=== PATIENT | male | born 1960 | race African-American/Black ===

== ENCOUNTER 2017-10-28 05:35 | Outpatient (CLI) | payer MEDICARE, MEDICAID ==
[~2017-10-28] VITALS: Ht 165.1 cm; Wt 81.6 kg
[2017-10-28] MEDS ORDERED: DIAZ5TAB PO (09:59)
[2017-10-28] MEDS ORDERED: LISI10TA2 PO (10:06)
== END 2017-10-28 10:07 ==
LOC: PREOP 05:35
PROVIDERS: ATTEND Surgery
DX: Z01.818 Encounter for other preprocedural examination (principal)

== ENCOUNTER 2017-11-04 08:51 | Day surgery (SDC) | payer MEDICARE, MEDICAID ==
[~2017-11-04] VITALS: Ht 165.1 cm; Wt 81.6 kg
[~2017-11-04 08:51] MED LIST: DIAZ5TAB PO; LISI10TA2 PO
--- OUTSIDE RECORDS SUMMARY | 2017-11-04 08:56 | XMS REPORT ---
Author RICK Escamilla [facility] eClinicalWorks Address Unknown Phone Unavailable Care Team Providers Care Gallery Or Museum Attendant Name Role Phone RICK STYLES CP Unavailable Allergies No Known Allergies Problems Problem Type Condition Code Onset Dates Condition Status Problem Hypertension I10 Active Problem Anxiety F41.9 Active Problem Abnormal liver function tests R79.89 Active Medications No Known Medications Results No Known Results Summary Purpose eClinicalWorks Submission
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
--- OUTSIDE RECORDS SUMMARY | 2017-11-04 08:56 | XMS REPORT ---
Author Author RICK STYLES [facility] eClinicalWorks Address Unknown Phone Unavailable Care Team Providers Care Maintenance Planner Name Role Phone RICK STYLES CP Unavailable Allergies No Known Allergies Problems Problem Type Condition Code Onset Dates Condition Status Problem Unspecified arthropathy, site unspecified 716.90 Active Problem Other abnormal blood chemistry 790.6 Active Problem Essential hypertension, benign 401.1 Active Problem Nondependent alcohol abuse, unspecified drunkenness 305.00 Active Medications Medication Code System Code Instructions Start Date End Date Status Dosage Valium [facility] [address]-46 5 MG Orally, each fill must last 30 days Twice a day June 28, 2014 1 tablet as needed, must be seen for more refills Results No Known Results Summary Purpose eClinicalWorks Submission
--- OUTSIDE RECORDS SUMMARY | 2017-11-04 08:56 | XMS REPORT ---
Author Author RICK STYLES Organization [facility] Address [address] [place] [address] Care Team Providers Care Supervisor Reactor Fueling Name Role Phone RICK STYLES Unavailable PROBLEMS Type Condition ICD9-CM Code EYN71-ML Code Onset Dates Condition Status SNOMED Code Problem Abnormal liver function tests R79.89 Active 358673451 Problem Hypertension I10 Active 95865154 Problem Anxiety F41.9 Active 23643030 Assessment Hypertension I10 Feb, Active 49560432 ALLERGIES Substance Reaction Event Type Date Status N.K.D.A. Unknown Non Drug Allergy Feb, Unknown SOCIAL HISTORY No smoking Hx information available PLAN OF CARE VITAL SIGNS Height 65 in 2016-03-26 Weight 187.6 lbs 2016-03-26 Heart Rate 110 bpm 2016-03-26 Respiratory Rate 20 2016-03-26 BMI 31.21 kg/m2 2016-03-26 Blood pressure systolic 124 mmHg 2016-03-26 Blood pressure diastolic 84 mmHg 2016-03-26 MEDICATIONS Medication Instructions Dosage Frequency Start Date End Date Duration Status Valium 5 MG Orally, each fill must last 30 days Twice a day 1 tablet as needed, must be seen for more refills 12h Jun, Active hydrochlorothiazide-lisinopril 20-12.5 mg 1 tablet by Oral route 24h Oct, Active RESULTS Name Result Date Reference Range LIVER PANEL (LFT) 2016-03-26 Protein, Total, Serum 7.1 6.0-8.5 Albumin, Serum 4.4 3.5-5.5 Bilirubin, Total 0.2 0.0-1.2 Bilirubin, Direct 0.08 0.00-0.40 Alkaline Phosphatase, S 69 39-117 AST (SGOT) 30 0-40 ALT (SGPT) 24 0-44 PROCEDURES Procedure Date Ordered Related Diagnosis Body Site LAB NOT BILLED BY [facility] Mar 26, 2016 VENIPUNCT, ROUTINE* Mar 26, 2016 Office Visit, Est Pt., Level 3 Mar 26, 2016 [facility] VISIT ESTABLISHED PATIENT Mar 26, 2016 IMMUNIZATIONS No Known Immunizations
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
--- OUTSIDE RECORDS SUMMARY | 2017-11-04 08:56 | XMS REPORT ---
Author Author RICK STYLES [facility] eClinicalWorks Address Unknown Phone Unavailable Care Team Providers Care Machine Plug Shaper Name Role Phone RICK STYLES CP Unavailable Allergies No Known Allergies Problems Problem Type Condition Code Onset Dates Condition Status Problem Anxiety F41.9 Active Assessment Anxiety F41.9 Active Problem Hypertension I10 Active Medications Medication Code System Code Instructions Start Date End Date Status Dosage Valium [facility] [address]-07 5 MG Orally, each fill must last 30 days Twice a day June 28, 2014 1 tablet as needed, must be seen for more refills Results No Known Results Summary Purpose eClinicalWorks Submission
--- OUTSIDE RECORDS SUMMARY | 2017-11-04 08:56 | XMS REPORT ---
Author Author RICK STYLES Organization eClinicalWorks Address Unknown Phone Unavailable Care Team Providers Care Well Cleaner Name Role Phone RICK STYLES CP Unavailable Allergies No Known Allergies Problems Problem Type Condition Code Onset Dates Condition Status Problem Unspecified arthropathy, site unspecified 716.90 Active Problem Other abnormal blood chemistry 790.6 Active Problem Essential hypertension, benign 401.1 Active Problem Nondependent alcohol abuse, unspecified drunkenness 305.00 Active Medications Medication Code System Code Instructions Start Date End Date Status Dosage hydrochlorothiazide-lisinopril NDC 0 20-12.5 mg Once a day October 26, 2013 1 tablet by Oral route Results No Known Results Summary Purpose eClinicalWorks Submission
--- OUTSIDE RECORDS SUMMARY | 2017-11-04 08:57 | XMS REPORT ---
Author Author RICK STYLES [facility] eClinicalWorks Address Unknown Phone Unavailable Care Team Providers Care Artillery Or Naval Gunfire Observer Name Role Phone RICK STYLES CP Unavailable Allergies No Known Allergies Problems Problem Type Condition Code Onset Dates Condition Status Problem Hypertension I10 Active Problem Anxiety F41.9 Active Problem Abnormal liver function tests R79.89 Active Medications Medication Code System Code Instructions Start Date End Date Status Dosage hydrochlorothiazide-lisinopril NDC 0 20-12.5 mg Once a day October 26, 2013 1 tablet by Oral route Valium [facility] [address]-79 5 MG Orally, each fill must last 30 days Twice a day June 28, 2014 1 tablet as needed, must be seen for more refills Results No Known Results Summary Purpose eClinicalWorks Submission
--- OUTSIDE RECORDS SUMMARY | 2017-11-04 08:57 | XMS REPORT ---
Author RICK Escamilla [facility] eClinicalWorks Address Unknown Phone Unavailable Care Team Providers Care Bag Machine Tender Name Role Phone RICK STYLES CP Unavailable Allergies No Known Allergies Problems Problem Type Condition Code Onset Dates Condition Status Problem Hypertension I10 Active Problem Anxiety F41.9 Active Problem Abnormal liver function tests R79.89 Active Medications No Known Medications Results No Known Results Summary Purpose eClinicalWorks Submission
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
--- OUTSIDE RECORDS SUMMARY | 2017-11-04 08:57 | XMS REPORT ---
Author Author RICK STYLES [facility] Address [address] [place] [address] Care Team Providers Care Plugman Name Role Phone RICK STYLES Unavailable PROBLEMS Type Condition ICD9-CM Code [id number] Code Onset Dates Condition Status SNOMED Code Problem Simple chronic bronchitis J41.0 Active 01713840 Problem Cigarette nicotine dependence without complication F17.210 Active 14201116 Problem Anxiety F41.9 Active 93974089 Problem Abnormal liver function tests R79.89 Active 054728305 Problem Hypertension I10 Active 31480514 ALLERGIES No Information SOCIAL HISTORY Never Assessed PLAN OF CARE VITAL SIGNS MEDICATIONS Medication Instructions Dosage Frequency Start Date End Date Duration Status Valium 5 mg Orally, each fill must last 30 days [...]
--- OUTSIDE RECORDS SUMMARY | 2017-11-04 08:57 | XMS REPORT ---
Author Author RICK STYLES [facility] eClinicalWorks Address Unknown Phone Unavailable Care Team Providers Care Flight Tower Dispatcher Name Role Phone RICK STYLES CP Unavailable Allergies No Known Allergies Problems Problem Type Condition ICD-9 Code Onset Dates Condition Status Problem Unspecified arthropathy, site unspecified 716.90 Active Problem Other abnormal blood chemistry 790.6 Active Problem Essential hypertension, benign 401.1 Active Problem Nondependent alcohol abuse, unspecified drunkenness 305.00 Active Medications No Known Medications Results No Known Results Summary Purpose eClinicalWorks Submission
[2017-11-04] MEDS ORDERED: LACTATED RINGERS 1,000 ML IV ONE (09:12)
[2017-11-04 09:20] VITALS: BP 148/108
[2017-11-04] MEDS ORDERED: LACTATED RINGERS 1,000 ML IV STA (09:20)
[2017-11-04] MEDS ORDERED: PROPOFOL INJECTION 50 ML IV ONE (09:24)
[2017-11-04] MEDS ORDERED: MIDAZOLAM 5 MG/5 ML (VERSED) VIAL ONE (09:25)
--- NOTE | 2017-11-04 09:25 | Progress Note-Pre Operative ---
Pre-Operative Progress Note H&P Reviewed The H&P was reviewed, patient examined and no changes noted. Date Seen by Provider: Nov 04, 2017 Time Seen by Provider: : Date H&P Reviewed: Nov 04, 2017 Time H&P Reviewed: : Pre-Operative Diagnosis: screening colonoscopy ROSSY ORNELAS DO Nov 04, 2017 09:25
[2017-11-04] MEDS ORDERED: KETAMINE HCL 100 MG/ML 5 ML VIAL ONE (09:54)
--- NOTE | 2017-11-04 10:19 | Progress Note-Post Operative ---
Post-Operative Progess Note Surgeon (s)/Civil Engineer In Training (s) Surgeon ROSSY ORNELAS DO Civil Engineer In Training: na Pre-Operative Diagnosis screening colonoscopy Post-Operative Diagnosis diverticulosis, rectal polyp Procedure & Operative Findings Date of Procedure 11/04/17 Procedure Performed/Findings colonoscopy with hot bx polypectomy Anesthesia Type per [facility] Estimated Blood Loss Estimated blood loss (mL): none Specimens/Packing Specimens Removed rectal polyp ROSSY ORNELAS DO Nov 04, 2017 10:19
--- NOTE | 2017-11-04 10:21 | Discharge Inst-Simple/Standard ---
Discharge Inst-Standard Patient Instructions/Follow Up Plan of Care/Instructions/FU: 2 weeks Michael Activity as Tolerated: Yes Discharge Diet: Regular Diet (high fiber diet) ROSSY ORNELAS DO Nov 04, 2017 10:20
[2017-11-04 10:30] VITALS: BP 140/89
--- NOTE | 2017-11-04 10:57 | Anesthesia-General Post-Op ---
MAC Patient Condition Mental Status/LOC: Same as Preop Cardiovascular: Satisfactory Nausea/Vomiting: Absent Respiratory: Satisfactory Pain: Controlled Complications: Absent Post Op Complications Complications None Follow Up Care/Instructions Patient Instructions None needed. Anesthesiology Discharge Order Discharge Order Patient is doing well, no complaints, stable vital signs, no apparent adverse anesthesia problems. No complications reported per nursing. BENITO BERNARDO CRNA Nov 04, 2017 10:57
[2017-11-04 11:00] VITALS: BP 141/88
[2017-11-04 11:35] VITALS: BP 141/88
--- NOTE | 2017-11-04 13:56 | OPERATIVE REPORT ---
DATE OF SERVICE: 11/04/2017 PREOPERATIVE DIAGNOSIS: Screening colonoscopy. POSTOPERATIVE DIAGNOSES: Colon polyp and diverticulosis. PROCEDURE: Colonoscopy with hot biopsy polypectomy. SURGEON: Rossy Rodriguez DO ANESTHESIA: Per MDA. ESTIMATED BLOOD LOSS: None. COMPLICATIONS: None. INDICATIONS: The patient is a 57-year-old male in need of screening colonoscopy. He understands risks and benefits of procedure and wished to proceed with procedure. Consent was signed on the chart. DESCRIPTION OF PROCEDURE: The patient was taken to the endoscopy suite, placed in left lateral recumbent position. Timeout was performed. Digital rectal exam was performed. There were no palpable polyps, masses or ulcerations. The scope was inserted in the rectum and advanced all the way to the cecum with minimal difficulty. Prep was adequate. The scope was then slowly retracted back. There were no polyps, masses or ulcerations within the cecum, ascending, transverse, descending and sigmoid colon. Throughout the entire colon, there was a small amount of diverticulosis. Scope was continuously retracted back into the rectum where there was a small polyp which hot biopsy polypectomy was performed. Scope was also retroflexed noting no other pathology. Scope was returned to its normal position, slowly withdrawn until completely removed. The patient tolerated the procedure well without any complications and was taken to recovery room in stable condition. RECOMMENDATIONS: The patient recommended high-fiber diet due to diverticulosis. He will follow up in the office in 2 weeks to discuss pathology results. The patient would be recommended repeat colonoscopy in 5 years. If he has any problems prior to that, he should be reevaluated at that time. Job ID: [id number] DocumentID: [id number] Dictated Date: 11/04/2017 10:23:27 Peanut Farmer Date: 11/04/2017 13:55:13 Dictated By: ROSSY RODRIGUEZ DO
== END 2017-11-04 11:35 | disposition home or self-care (01) ==
LOC: ENDO 08:51
PROVIDERS: ATTEND Surgery
DX: Z12.11 Encounter for screening for malignant neoplasm of colon (principal); D12.8 Benign neoplasm of rectum; K57.30 Diverticulosis of large intestine without perforation or abscess without bleeding; I10 Essential (primary) hypertension; F17.210 Nicotine dependence, cigarettes, uncomplicated; Z79.899 Other long term (current) drug therapy

== ENCOUNTER → 2018-04-02 | Outpatient (CLI) | payer MEDICARE, MEDICAID ==
--- NOTE | 2018-04-02 09:30 | Diagnostic Imaging Report ---
PROCEDURE: CT chest without contrast. TECHNIQUE: Multiple contiguous axial images were obtained through the chest without the use of intravenous contrast. INDICATION: Smoker. COMPARISON: No prior studies are available for comparison. FINDINGS: Low-dose protocol was utilized. Central airways appear to be patent. No definite parenchymal nodules or masses are seen. No infiltrates are identified. No definite pericardial or pleural fluid is detected. Mediastinal and hilar evaluation is limited without intravenous contrast. 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 IMPRESSION: The lung gan appear clear. No parenchymal nodule or mass is detected. Dictated by: Dictated on workstation # [id number]
== END ==
LOC: RAD 08:09
PROVIDERS: ATTEND Internal Medicine Hematology & Oncology
DX: D75.1 Secondary polycythemia (principal); F17.200 Nicotine dependence, unspecified, uncomplicated
CPT/HCPCS: 71250

== ENCOUNTER 2018-04-09 10:22 | Outpatient (RCR) | payer MEDICARE, MEDICAID ==
[2018-03-18 11:17] LABS: ABSOLUTE RETIC # 49 10e9/L (24-90); BASOPHILS # (AUTO) 0.1 10^3/uL (0.0-0.1); BASOPHILS % (AUTO) 1 % (0-10); EOSINOPHILS % (AUTO) 1 % (0-10); HEMATOCRIT 49 % (40-54); HEMOGLOBIN 16.6 G/DL (13.3-17.7); LYMPHOCYTES # (AUTO) 1.4 X 10^3 (1.0-4.0); LYMPHOCYTES % (AUTO) 26 % (12-44); MEAN CORPUSCULAR HEMOGLOBIN 32 PG (25-34); MEAN CORPUSCULAR HGB CONC 34 G/DL (32-36); MEAN CORPUSCULAR VOLUME 94 FL (80-99); MEAN PLATELET VOLUME 9.8 FL (7.4-10.4); MONOCYTES # (AUTO) 0.5 X 10^3 (0.0-1.0); MONOCYTES % (AUTO) 9 % (0-12); NEUTROPHILS # (AUTO) 3.3 X 10^3 (1.8-7.8); NEUTROPHILS % (AUTO) 63 % (42-75); PLATELET COUNT 183 10^3/uL (130-400); RED CELL DISTRIBUTION WIDTH 12.7 % (10.0-14.5); RETICULOCYTE % 0.94 % (0.50-2.40); WHITE BLOOD COUNT 5.2 10^3/uL (4.3-11.0)
[2018-03-18 11:40] LABS: CARBON DIOXIDE 25 MMOL/L (21-32); CHLORIDE 107 MMOL/L (98-107); CREATININE SERUM 0.85 MG/DL (0.60-1.30); POTASSIUM 3.8 MMOL/L (3.6-5.0); SODIUM 143 MMOL/L (135-145)
[2018-03-18 11:41] LABS: ALANINE AMINOTRANSFERASE 30 U/L (0-55); ALBUMIN 4.5 GM/DL (3.2-4.5); ALKALINE PHOSPHATASE 55 U/L (40-136); BILIRUBIN,TOTAL 0.4 MG/DL (0.1-1.0); BUN/CREATININE RATIO 7; CALCIUM 9.7 MG/DL (8.5-10.1); GFR ESTIMATED > 60; GLUCOSE 104 MG/DL (70-105); TOTAL PROTEIN 7.8 GM/DL (6.4-8.2)
[2018-04-09 10:30] LABS: BASOPHILS % (AUTO) 0 % (0-10); EOSINOPHILS % (AUTO) 1 % (0-10); HEMATOCRIT 52 % (40-54); HEMOGLOBIN 17.9 G/DL (13.3-17.7); LYMPHOCYTES # (AUTO) 1.8 X 10^3 (1.0-4.0); LYMPHOCYTES % (AUTO) 28 % (12-44); MEAN CORPUSCULAR HEMOGLOBIN 32 PG (25-34); MEAN CORPUSCULAR HGB CONC 35 G/DL (32-36); MEAN CORPUSCULAR VOLUME 93 FL (80-99); MEAN PLATELET VOLUME 10.3 FL (7.4-10.4); MONOCYTES # (AUTO) 0.7 X 10^3 (0.0-1.0); MONOCYTES % (AUTO) 12 % (0-12); NEUTROPHILS # (AUTO) 3.7 X 10^3 (1.8-7.8); NEUTROPHILS % (AUTO) 59 % (42-75); PLATELET COUNT 201 10^3/uL (130-400); RED CELL DISTRIBUTION WIDTH 12.4 % (10.0-14.5); WHITE BLOOD COUNT 6.3 10^3/uL (4.3-11.0)
== END 2018-06-16 | disposition home or self-care (01) ==
LOC: ONC 10:22
PROVIDERS: ATTEND Internal Medicine Hematology & Oncology
DX: D75.1 Secondary polycythemia (principal); I10 Essential (primary) hypertension; F41.9 Anxiety disorder, unspecified; F17.290 Nicotine dependence, other tobacco product, uncomplicated; R63.0 Anorexia; R63.4 Abnormal weight loss; Z79.899 Other long term (current) drug therapy
CPT/HCPCS: 36415; 80053; 81270; 82668; 85025; 85045; 99213; 99214

== ENCOUNTER 2018-11-16 20:18 | Emergency (ER) | payer MEDICARE, MEDICAID ==
[~2018-11-16] VITALS: Ht 165.1 cm; Wt 79.4 kg
[2018-11-16 20:52] VITALS: BP 142/92
[2018-11-16] MEDS ORDERED: CEPH-507 PO (20:53)
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
--- OUTSIDE RECORDS SUMMARY | 2018-11-17 01:58 | XMS REPORT ---
Author Author RICK STLYES Organization [facility] Address [address] [place] [address] Care Team Providers Care Job Specification Writer Name Role Phone RICK STYLES Unavailable PROBLEMS Type Condition ICD9-CM Code RMF85-NP Code Onset Dates Condition Status SNOMED Code Problem Anxiety F41.9 Active 11890599 Problem Hypertension I10 Active 13575612 Problem Erythrocytosis D75.1 Active 264884694 Problem Prediabetes R73.03 Active 024887928 Problem Abnormal liver function tests R79.89 Active 646562847 Problem Cigarette nicotine dependence without complication F17.210 Active 06348742 Problem Simple chronic bronchitis J41.0 Active 08411762 Problem Alcoholism F10.20 Active 2216442 ALLERGIES No Information ENCOUNTERS Encounter Location Date Diagnosis [facility] [id number] [place] [address] Sep, [facility] [id number] [place] [address] Sep, Anxiety F41.9 [facility] [id number] [place] [address] Sep, [facility] [id number] [place] [address] Sep, [facility] [id number] [place] [address] August, Anxiety F41.9 [facility] [id number] [place] [address] August, Anxiety F41.9 [facility] [id number] [place] [address] Jul, Anxiety F41.9 [facility] [id number] [place] [address] 08 Jun, 2018 Anxiety F41.9 ; Elevated glucose R73.09 ; Hypertension I10 and Prediabetes R73.03 [facility] [id number] [place] [address] 04 Jun, 2018 Hypertension I10 and Anxiety F41.9 [facility] [address] [address] May, Anxiety F41.9 [facility] [address] [address] Apr, Anxiety F41.9 [facility] [address] [address] Feb, Anxiety F41.9 [facility] [id number] [place] [address] Jan, [facility] [id number] [place] [address] Jan, Erythrocytosis D75.1 [place] [address] [address] Jan, Kidney disease N28.9 [facility] [id number] [place] [address] Jan, Hypertension I10 ; Anxiety F41.9 and Weight loss R63.4 [place] [id number] [place] [address] Jan, Anxiety F41.9 [facility] [id number] [place] [address] Dec, Anxiety F41.9 [facility] [id number] [place] [address] Nov, Anxiety F41.9 [facility] [id number] [place] [address] Oct, Anxiety F41.9 [facility] [id number] [place] [address] Sep, Anxiety F41.9 [facility] [id number] [place] [address] Sep, Simple chronic bronchitis J41.0 [facility] [id number] [place] [address] Sep, Medicare annual wellness visit, initial Z00.00 ; Anxiety F41.9 ; Hypertension I10 ; Simple chronic bronchitis J41.0 and Routine adult health maintenance Z00.00 [place] [address] [address] August, [place] [id number] [place] [address] August, Dog bite, subsequent encounter W54.0XXD and Alcoholism F10.20 [place] [id number] [place] [address] August, Anxiety F41.9 [place] [id number] [place] [address] Jul, Anxiety F41.9 [place] [id number] [place] [address] Jul, Open bite of right buttock, initial encounter S31.815A ; Bitten by dog, initial encounter W54.0XXA and Encounter for immunization Z23 [facility] [id number] [place] [address] Jun, Anxiety F41.9 [facility] [address] [address] Jun, Anxiety F41.9 [facility] [id number] [place] [address] Jun, [facility] [id number] [place] [address] Jun, Anxiety F41.9 [facility] [id number] [place] [address] May, Anxiety F41.9 [facility] [id number] [place] [address] Apr, Anxiety F41.9 [facility] [id number] [place] [address] Apr, Hypertension I10 and Anxiety F41.9 [facility] [id number] [place] [address] Apr, Anxiety F41.9 [facility] [address] [address] Apr, [facility] [id number] [place] [address] Oct, Hypertension I10 ; Anxiety F41.9 and Simple chronic bronchitis J41.0 [facility] [id number] [place] [address] Sep, [facility] [address] [address] Sep, Anxiety F41.9 [facility] [id number] [place] [address] Jun, Hypertension I10 ; Anxiety F41.9 ; Cigarette nicotine dependence without complication F17.210 and Tinea pedis of both feet B35.3 [facility] [id number] [place] [address] Jun, [facility] [id number] [place] [address] Jun, Anxiety F41.9 [facility] [id number] [place] [address] Feb, Hypertension I10 ; Anxiety F41.9 and Abnormal liver function tests R79.89 [facility] [id number] [place] [address] Feb, [facility] [id number] [place] [address] Feb, [facility] [id number] [place] [address] Nov, [facility] [address] [address] Sep, Hypertension I10 [facility] [address] [address] August, Hypertension I10 ; Anxiety F41.9 and Abnormal liver function tests R79.89 [facility] [id number] [place] [address] Jul, Anxiety F41.9 [facility] [address] [address] Jun, [facility] [id number] [place] [address] May, Hypertension I10 and Anxiety F41.9 [facility] [id number] [place] [address] Mar, [facility] [id number] [place] [address] Feb, [facility] [id number] [place] [address] Nov, [facility] [id number] [place] [address] Nov, Knee sprain 844.9 [facility] [id number] [place] [address] Nov, Essential hypertension, benign 401.1 and Nondependent alcohol abuse, unspecified drunkenness 305.00 [facility] [id number] [place] [address] Nov, [facility] [place] [facility] [address] [id number] [place] [address] Oct, [facility] [place] [facility] [address] [id number] [place] [address] Sep, [facility] [place] [facility] [address] [id number] [place] [address] Sep, [facility] [place] [facility] [address] [id number] [place] [address] Jul, [facility] [place] [facility] [address] [id number] [place] [address] Jul, [facility] [place] [facility] [address] [id number] [place] [address] Jun, [facility] [place] [facility] [address] [facility] [id number] [place] [address] Jun, [facility] [place] [facility] [address] [id number] [place] [address] May, 2014 [facility] [place] [facility] [address] [id number] [place] [address] May, 2014 [facility] [place] [facility] [address] [facility] [place] [id number] [place] [address] May, 2014 [facility] [place] [facility] [address] [id number] [place] [address] May, 2014 [facility] [place] [facility] [address] [id number], [place] [address] Feb, [facility] [place] [facility] [address] [id number] [place] [address] Feb, [facility] [place] [facility] [address] [id number] [place] [address] Nov, [facility] [place] [facility] [address] [facility] [id number] [place] [address] Nov, [facility] [place] [facility] [address] [id number] [place] [address] Nov, [facility] [place] [facility] [address] [id number] [place] [address] Nov, [facility] [place] [facility] [address] [id number] [place] [address] Oct, 2013 [facility] [place] [facility] [address] [id number] [place] [address] Oct, [facility] [place] [facility] [address] [id number] [place] [address] Oct, [facility] [place] [facility] [address] [id number] [place] [address] Oct, [facility] [place] [facility] [address] [id number] [place] [address] Oct, [facility] [place] [facility] [address] [id number] [place] [address] Nov, [facility] [place] [facility] [address] [id number] [place] [address] August, [facility] [place] [facility] [address] [id number] [place] [address] Jul, [facility] [place] [facility] [address] [id number] [place] [address] Jul, [facility] [place] [facility] [address] [id number] [place] [address] Apr, [facility] [place] [facility] [address] [id number] [place] [address] Apr, [facility] [place] [facility] [address] [id number] [place] [address] Apr, [facility] [place] [facility] [address] [id number] [place] [address] Feb, [facility] [place] [facility] [address] [id number] [place] [address] Feb, [facility] [place] [facility] [address] [id number] [place] [address] Dec, [facility] [place] [facility] [address] [id number] [place] [address] Nov, [facility] [place] [facility] [address] [id number] [place] [address] Oct, [facility] [place] [facility] [address] [id number] [place] [address] Oct, [facility] [place] [facility] [address] [id number] [place] [address] Oct, [facility] [place] [facility] [address] [id number] [place] [address] Sep, [facility] [place] [facility] [address] [id number] [place] [address] Sep, [facility] [place] [facility] [address] [id number] [place] [address] Sep, [facility] [place] [facility] [address] [id number] [place] [address] August, [facility] [place] [facility] [address] [id number] [place] [address] August, [facility] [place] [facility] [address] [id number] [place] [address] Jul, [facility] [place] [facility] [address] [id number], [place] [address] Jun, [facility] [place] [facility] [address] [id number] [place] [address] Jun, [facility] [place] [facility] [address] [id number] [place] [address] Apr, [facility] [place] [facility] [address] [id number] [place] [address] Apr, [facility] [place] [facility] [address] [facility] [id number] [place] [address] Mar, [facility] [address] [facility] [id number], [place] [address] Mar, [facility] [address] [id number] [address] Mar, [facility] [address] [facility] [id number], [place] [address] Mar, [facility] [address] [facility] [id number], [place] [address] Jan, IMMUNIZATIONS No Known Immunizations SOCIAL HISTORY Never Assessed REASON FOR VISIT PLAN OF CARE VITAL SIGNS MEDICATIONS Unknown [...]
--- OUTSIDE RECORDS SUMMARY | 2018-11-17 01:58 | XMS REPORT ---
Author Author RICK STYLES Organization [facility] Address [address] [place] [address] Care Team Providers Care Arts Administrator Or Manager Name Role Phone RICK STYLES Unavailable PROBLEMS Type Condition ICD9-CM Code TOX25-WX Code Onset Dates Condition Status SNOMED Code Problem Anxiety F41.9 Active 10645103 Problem Hypertension I10 Active 95749047 Problem Erythrocytosis D75.1 Active 573277313 Problem Prediabetes R73.03 Active 757727474 Problem Abnormal liver function tests R79.89 Active 413192271 Problem Cigarette nicotine dependence without complication F17.210 Active 71162071 Problem Simple chronic bronchitis J41.0 Active 30093572 Problem Alcoholism F10.20 Active 9999548 ALLERGIES No Information ENCOUNTERS Encounter Location Date Diagnosis [facility] [id number] [place] [address] Sep, Anxiety F41.9 [facility] [id number] [place] [address] Sep, [facility] [id number] [place] [address] Sep, [facility] [id number] [place] [address] Sep, [facility] [id number] [place] [address] August, Anxiety F41.9 [facility] [id number] [place] [address] August, Anxiety F41.9 [facility] [id number] [place] [address] Jul, Anxiety F41.9 [facility] [id number] [place] [address] 08 Jun, 2018 Anxiety F41.9 ; Elevated glucose R73.09 ; Hypertension I10 and Prediabetes R73.03 [facility] [id number] [place] [address] 04 Jun, 2018 Hypertension I10 [address] [facility] [address] [address] May, Anxiety F41.9 [facility] [address] [address] Apr, Anxiety F41.9 [facility] [address] [address] Feb, Anxiety F41.9 [facility] [id number] [place] [address] Jan, [facility] [id number] [place] [address] Jan, Erythrocytosis D75.1 [place] [address] [address] Jan, Kidney disease N28.9 [facility] [id number] [place] [address] Jan, Hypertension I10 ; Anxiety F41.9 and Weight loss R63.4 [place] [id number] [place] [address] Jan, Anxiety F41.9 [facility] [id number] [place] [address] Dec, Anxiety F41.9 [facility] [id number] [place] [address] Nov, Anxiety F41.9 [facility] [id number] [place] [address] Oct, Anxiety F41.9 [facility] [id number] [place] [address] Sep, Anxiety F41.9 [facility] [id number] [place] [address] Sep, Simple chronic bronchitis J41.0 [facility] [id number] [place] [address] Sep, Medicare annual wellness visit, initial Z00.00 ; Anxiety F41.9 ; Hypertension I10 ; Simple chronic bronchitis J41.0 and Routine adult health maintenance Z00.00 [place] [address] [address] August, [place] [id number] [place] [address] August, Dog bite, subsequent encounter W54.0XXD and Alcoholism F10.20 [place] [id number] [place] [address] August, Anxiety F41.9 [place] [id number] [place] [address] Jul, Anxiety F41.9 [place] [id number] [place] [address] Jul, Open bite of right buttock, initial encounter S31.815A ; Bitten by dog, initial encounter W54.0XXA and Encounter for immunization Z23 [facility] [id number] [place] [address] Jun, Anxiety F41.9 [facility] [address] [address] Jun, Anxiety F41.9 [facility] [id number] [place] [address] Jun, [facility] [id number] [place] [address] Jun, Anxiety F41.9 [facility] [id number] [place] [address] May, Anxiety F41.9 [facility] [id number] [place] [address] Apr, Anxiety F41.9 [facility] [id number] [place] [address] Apr, Hypertension I10 [address]9 [facility] [id number] [place] [address] Apr, Anxiety F41.9 [facility] [address] [address] Apr, [facility] [id number] [place] [address] Oct, Hypertension I10 ; Anxiety F41.9 and Simple chronic bronchitis J41.0 [facility] [id number] [place] [address] Sep, [facility] [address] [address] Sep, Anxiety F[address]9 [facility] [id number] [place] [address] Jun, Hypertension I10 ; Anxiety F41.9 ; Cigarette nicotine dependence without complication F17.210 and Tinea pedis of both feet B35.3 [facility] [id number] [place] [address] Jun, [facility] [id number] [place] [address] Jun, Anxiety F41.9 [facility] [id number] [place] [address] Feb, Hypertension I10 ; Anxiety F41.9 and Abnormal liver function tests R79.89 [facility] [id number] [place] [address] Feb, [facility] [id number] [place] [address] Feb, [facility] [id number] [place] [address] Nov, [facility] [address] [address] Sep, Hypertension I10 [facility] [address] [address] August, Hypertension I10 ; Anxiety F41.9 and Abnormal liver function tests R79.89 [facility] [id number] [place] [address] Jul, Anxiety F41.9 [facility] [address] [address] Jun, [facility] [id number] [place] [address] May, Hypertension I10 [address]9 [facility] [id number] [place] [address] Mar, [facility] [id number] [place] [address] Feb, [facility] [id number] [place] [address] Nov, [facility] [id number] [place] [address] Nov, Knee sprain 844.9 [facility] [id number] [place] [address] Nov, Essential hypertension, benign 401.1 and Nondependent alcohol abuse, unspecified drunkenness 305.00 [facility] [id number] [place] [address] Nov, [facility] [place] [facility] [address] [id number] [place] [address] Oct, [facility] [place] [facility] [address] [id number] [place] [address] Sep, [facility] [place] [facility] [address] [id number] [place] [address] Sep, [facility] [place] [facility] [address] [id number] [place] [address] Jul, [facility] [place] [facility] [address] [id number] [place] [address] Jul, [facility] [place] [facility] [address] [id number] [place] [address] Jun, [facility] [place] [facility] [address] [facility] [id number] [place] [address] Jun, [facility] [place] [facility] [address] [id number] [place] [address] May, 2014 [facility] [place] [facility] [address] [id number] [place] [address] May, 2014 [facility] [place] [facility] [address] [facility] [id number] [place] [address] May, 2014 [facility] [place] [facility] [address] [id number] [place] [address] May, 2014 [facility] [place] [facility] [address] [id number], [place] [address] Feb, [facility] [place] [facility] [address] [id number] [place] [address] Feb, [facility] [place] [facility] [address] [id number] [place] [address] Nov, [facility] [place] [facility] [address] [facility] [id number] [place] [address] Nov, [facility] [place] [facility] [address] [id number] [place] [address] Nov, [facility] [place] [facility] [address] [id number] [place] [address] Nov, [facility] [place] [facility] [address] [id number] [place] [address] Oct, 2013 [facility] [place] [facility] [address] [id number] [place] [address] Oct, [facility] [place] [facility] [address] [id number] [place] [address] Oct, [facility] [place] [facility] [address] [id number] [place] [address] Oct, [facility] [place] [facility] [address] [id number] [place] [address] Oct, [facility] [place] [facility] [address] [id number] [place] [address] Nov, [facility] [place] [facility] [address] [id number] [place] [address] August, [facility] [place] [facility] [address] [id number] [place] [address] Jul, [facility] [place] [facility] [address] [id number] [place] [address] Jul, [facility] [place] [facility] [address] [id number] [place] [address] Apr, [facility] [place] [facility] [address] [id number] [place] [address] Apr, [facility] [place] [facility] [address] [id number] [place] [address] Apr, [facility] [place] [facility] [address] [id number] [place] [address] Feb, [facility] [place] [facility] [address] [id number] [place] [address] Feb, [facility] [place] [facility] [address] [id number] [place] [address] Dec, [facility] [place] [facility] [address] [id number] [place] [address] Nov, [facility] [place] [facility] [address] [id number] [place] [address] Oct, [facility] [place] [facility] [address] [id number] [place] [address] Oct, [facility] [place] [facility] [address] [id number] [place] [address] Oct, [facility] [place] [facility] [address] [id number] [place] [address] Sep, [facility] [place] [facility] [address] [id number] [place] [address] Sep, [facility] [place] [facility] [address] [id number] [place] [address] Sep, [facility] [place] [facility] [address] [id number] [place] [address] August, [facility] [place] [facility] [address] [id number] [place] [address] August, [facility] [place] [facility] [address] [id number] [place] [address] Jul, [facility] [place] [facility] [address] [id number], [place] [address] Jun, [facility] [place] [facility] [address] [id number] [place] [address] Jun, [facility] [place] [facility] [address] [id number] [place] [address] Apr, [facility] [place] [facility] [address] [id number] [place] [address] Apr, [facility] [place] [facility] [address] [facility] [id number] [place] [address] Mar, [facility] [address] [facility] [id number] [address] Mar, [facility] [address] [id number] [address] Mar, [facility] [address] [facility] [id number], [place] [address] Mar, [facility] [address] [facility] [id number], [place] [address] Jan, IMMUNIZATIONS No Known Immunizations SOCIAL HISTORY [...]
--- OUTSIDE RECORDS SUMMARY | 2018-11-17 01:59 | XMS REPORT ---
Author Author Migration, Doctor Organization [facility] Address Unknown Phone Unavailable Care Team Providers Care Conveyor Line Battery Charger Name Role Phone Migration, Doctor Unavailable Unavailable PROBLEMS Type Condition ICD9-CM Code TAB05-GQ Code Onset Dates Condition Status SNOMED Code Problem Anxiety F41.9 Active 83705998 Problem Hypertension I10 Active 23318319 Problem Erythrocytosis D75.1 Active 991617387 Problem Prediabetes R73.03 Active 404334472 Problem Abnormal liver function tests R79.89 Active 084939837 Problem Cigarette nicotine dependence without complication F17.210 Active 25059622 Problem Simple chronic bronchitis J41.0 Active 27439238 Problem Alcoholism F10.20 Active 4785499 ALLERGIES No Information ENCOUNTERS Encounter Location Date Diagnosis [place] [address] [address] August, Anxiety F41.9 [place] [address] [place] [id number] [place] [address] Jul, Anxiety F41.9 [place] [address] [address] Jun, Anxiety F41.9 ; Elevated glucose R73.09 ; Hypertension I10 and Prediabetes R73.03 [place] [address] [place] [id number] [place] [address] Jun, Hypertension I10 and Anxiety F41.9 [place] [address] [place] [id number] [place] [address] May, Anxiety F41.9 [place] [address] [address] Apr, Anxiety F41.9 [place] [address] [place] [id number] [place] [address] Feb, Anxiety F41.9 [facility] [place] [address] [place] [id number] [place] [address] Jan, [facility] [place] [address] [place] [id number] [place] [address] Jan, Erythrocytosis D75.1 [facility] [place] [address] [place] [id number] [place] [address] Jan, Kidney disease N28.9 [facility] [place] [address] [place] [id number] [place] [address] Jan, Hypertension I10 ; Anxiety F41.9 and Weight loss R63.4 [facility] [place] [address] [place] [id number] [place] [address] Jan, Anxiety F41.9 [facility] [place] [address] [place] [id number] [place] [address] Dec, Anxiety F41.9 [facility] [place] [address] [place] [id number] [place] [address] Nov, Anxiety F41.9 [facility] [place] [address] [place] [id number] [place] [address] Oct, Anxiety F41.9 [facility] [place] [address] [place] [id number] [place] [address] Sep, Anxiety F41.9 [facility] [place] [address] [place] [id number] [place] [address] Sep, Simple chronic bronchitis J41.0 [facility] [place] [address] [place] [id number] [place] [address] Sep, Medicare annual wellness visit, initial Z00.00 ; Anxiety F41.9 ; Hypertension I10 ; Simple chronic bronchitis J41.0 and Routine adult health maintenance Z00.00 [facility] [place] [address] [place] [id number] [place] [address] August, [facility] [place] [address] [address] August, Dog bite, subsequent encounter W54.0XXD and Alcoholism F10.20 [place] [address] [address] August, Anxiety F41.9 [place] [address] [address] Jul, Anxiety F41.9 [place] [address] [address] Jul, Open bite of right buttock, initial encounter S31.815A ; Bitten by dog, initial encounter W54.0XXA and Encounter for immunization Z23 [place] [address] [address] Jun, Anxiety F41.9 [place] [address] [address] Jun, Anxiety F41.9 [place] [address] [address] Jun, [place] [address] [address] Jun, Anxiety F41.9 [place] [address] [address] May, Anxiety F41.9 [place] [address] [address] Apr, Anxiety F41.9 [place] [address] [address] Apr, Hypertension I10 and Anxiety F41.9 [place] [address] [address] Apr, Anxiety F41.9 [place] [address] [address] Apr, [facility] [place] [address] [place] [id number] [place] [address] Oct, Hypertension I10 ; Anxiety F41.9 and Simple chronic bronchitis J41.0 [facility] [place] [address] [place] [id number] [place] [address] Sep, [place] [address] [place] [id number] [place] [address] Sep, Anxiety F41.9 [place] [address] [address] Jun, Hypertension I10 ; Anxiety F41.9 ; Cigarette nicotine dependence without complication F17.210 and Tinea pedis of both feet B35.3 [place] [address] [place] [id number] [place] [address] Jun, [place] [address] [address] Jun, Anxiety F41.9 [place] [address] [place] [id number] [place] [address] Feb, Hypertension I10 ; Anxiety F41.9 and Abnormal liver function tests R79.89 [place] [address] [place] [id number] [place] [address] Feb, [place] [address] [place] [id number] [place] [address] Feb, [facility] [place] [address] [place] [id number] [place] [address] Nov, [place] [address] [address] Sep, Hypertension I10 [place] [address] [place] [id number] [place] [address] August, Hypertension I10 ; Anxiety F41.9 and Abnormal liver function tests R79.89 [place] [address] [address] Jul, Anxiety F41.9 [facility] [place] [address] [place] [id number] [place] [address] Jun, [facility] [place] [address] [place] [id number] [place] [address] May, Hypertension I10 and Anxiety F41.9 [facility] [place] [address] [address] Mar, [facility] [place] [address] [place] [id number] [place] [address] Feb, [facility] [place] [address] [place] [id number] [place] [address] Nov, [facility] [place] [address] [place] [id number] [place] [address] Nov, Knee sprain 844.9 [facility] [place] [address] [place] [id number] [place] [address] Nov, Essential hypertension, benign 401.1 and Nondependent alcohol abuse, unspecified drunkenness 305.00 [facility] [place] [address] [place] [id number] [place] [address] Nov, [facility] [place] [address] [place] [id number] [place] [address] Oct, [facility] [place] [address] [place] [id number] [place] [address] Sep, [facility] [place] [address] [place] [id number] [place] [address] Sep, [facility] [place] [address] [place] [id number] [place] [address] Jul, [facility] [place] [id number] [place] [address] Jul, [facility] [place] [address] [place] [id number] [place] [address] Jun, 2014 [facility] [place] [facility] [address] [id number] [place] [address] Jun, 2014 [facility] [place] [facility] [address] [id number] [place] [address] May, 2014 [facility] [place] [facility] [address] [id number] [place] [address] May, 2014 [facility] [place] [facility] [address] [id number] [place] [address] May, 2014 [facility] [place] [facility] [address] [id number] [place] [address] May, 2014 [facility] [place] [facility] [address] [id number] [place] [address] Feb, [facility] [place] [facility] [address] [id number] [place] [address] Feb, [facility] [place] [facility] [address] [id number] [place] [address] Nov, [facility] [place] [facility] [address] [id number] [place] [address] Nov, [facility] [place] [facility] [address] [id number] [place] [address] Nov, [facility] [place] [facility] [address] [id number] [place] [address] Nov, [facility] [place] [facility] [address] [id number] [place] [address] Oct, [facility] [place] [facility] [address] [id number] [place] [address] Oct, [facility] [place] [facility] [address] [id number] [place] [address] Oct, [facility] [place] [facility] [address] [id number] [place] [address] Oct, [facility] [place] [facility] [address] [id number] [place] [address] Oct, [facility] [address] [id number] [place] [address] Nov, [facility] [address] [id number] [place] [address] August, [facility] [address] [id number] [place] [address] Jul, [facility] [address] [id number] [place] [address] Jul, [facility] [address] [id number] [place] [address] Apr, [facility] [address] [id number] [place] [address] Apr, [facility] [address] [id number] [place] [address] Apr, [facility] [address] [id number] [place] [address] Feb, [facility] [address] [id number] [place] [address] Feb, [facility] [address] [id number] [place] [address] Dec, [facility] [address] [id number] [place] [address] Nov, [facility] [address] [id number] [place] [address] Oct, [facility] [address] [id number] [place] [address] Oct, [facility] [address] [id number] [place] [address] Oct, [facility] [address] [id number] [place] [address] Sep, [facility] [place] [address] [place] [id number] [address] Sep, [facility] [place] [address] [address] Sep, [facility] [place] [id number] [address] August, [facility] [place] [id number] [address] August, [facility] [place] [address] [place] [id number] [address] Jul, [facility] [place] [id number] [address] Jun, [facility] [place] [id number] [address] Jun, [facility] [place] [id number] [address] Apr, [facility] [place] [id number] [address] Apr, [facility] [place] [id number] [address] Mar, [facility] [place] [id number] [address] Mar, [facility] [place] [address] [place] [id number] [address] Mar, [facility] [place] [address] [place] [address] [id number] [address] Mar, [facility] [place] [address] [place] [address] [id number] [address] Jan, IMMUNIZATIONS No Known Immunizations SOCIAL HISTORY Never Assessed REASON FOR VISIT EMR-[facility] [place] PLAN OF CARE VITAL SIGNS MEDICATIONS Unknown [...]
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
--- OUTSIDE RECORDS SUMMARY | 2018-11-17 01:59 | XMS REPORT ---
Author Author Migration, Doctor Organization [facility] [facility] Address Unknown Phone Unavailable Care Team Providers Care Underground Electrician Name Role Phone Migration, Doctor Unavailable Unavailable PROBLEMS Type Condition ICD9-CM Code CHP34-HW Code Onset Dates Condition Status SNOMED Code Problem Anxiety F41.9 Active 14137783 Problem Hypertension I10 Active 01856848 Problem Erythrocytosis D75.1 Active 458624236 Problem Prediabetes R73.03 Active 638979873 Problem Abnormal liver function tests R79.89 Active 294724109 Problem Cigarette nicotine dependence without complication F17.210 Active 50744739 Problem Simple chronic bronchitis J41.0 Active 07606647 Problem Alcoholism F10.20 Active 0330541 ALLERGIES No Information ENCOUNTERS Encounter Location Date Diagnosis [place] [id number] [place] [address] Jul, Anxiety F41.9 [place] [id number] [place] [address] Jun, Anxiety F41.9 ; Elevated glucose R73.09 ; Hypertension I10 and Prediabetes R73.03 [place] [id number] [place] [address] Jun, Hypertension I10 and Anxiety F41.9 [place] [id number] [place] [address] May, Anxiety F41.9 [place] [id number] [place] [address] Apr, Anxiety F41.9 [place] [id number] [place] [address] Feb, Anxiety F41.9 [place] [id number] [place] [address] Jan, [place] [id number] [place] [address] Jan, Erythrocytosis D75.1 [place] [id number] [place] [address] Jan, Kidney disease N28.9 [place] [address] [address] Jan, Hypertension I10 ; Anxiety F41.9 and Weight loss R63.4 [place] [id number] [place] [address] Jan, Anxiety F41.9 [place] [address] [address] Dec, Anxiety F41.9 [place] [address] [address] Nov, Anxiety F41.9 [place] [address] [address] Oct, Anxiety F41.9 [place] [address] [address] Sep, Anxiety F41.9 [place] [id number] [place] [address] Sep, Simple chronic bronchitis J41.0 [place] [id number] [place] [address] Sep, Medicare annual wellness visit, initial Z00.00 ; Anxiety F41.9 ; Hypertension I10 ; Simple chronic bronchitis J41.0 and Routine adult health maintenance Z00.00 [place] [id number] [place] [address] August, [place] [id number] [place] [address] August, Dog bite, subsequent encounter W54.0XXD and Alcoholism F10.20 [place] [id number] [place] [address] August, Anxiety F41.9 [facility] [address] [address] Jul, Anxiety F41.9 [facility] [id number] [place] [address] Jul, Open bite of right buttock, initial encounter S31.815A ; Bitten by dog, initial encounter W54.0XXA and Encounter for immunization Z23 [place] [address] [address] Jun, Anxiety F41.9 [place] [address] [address] Jun, Anxiety F41.9 [place] [address] [address] Jun, [facility] [id number] [place] [address] Jun, Anxiety F41.9 [place] [address] [address] May, Anxiety F41.9 [place] [id number] [place] [address] Apr, Anxiety F41.9 [facility] [id number] [place] [address] Apr, Hypertension I10 and Anxiety F41.9 [facility] [id number] [place] [address] Apr, Anxiety F41.9 [facility] [id number] [place] [address] Apr, [facility] [id number] [place] [address] Oct, Hypertension I10 ; Anxiety F41.9 and Simple chronic bronchitis J41.0 [facility] [id number] [place] [address] Sep, [facility] [address] [address] Sep, Anxiety F41.9 [facility] [address] [address] Jun, Hypertension I10 ; Anxiety F41.9 ; Cigarette nicotine dependence without complication F17.210 and Tinea pedis of both feet B35.3 [place] [address] [address] Jun, [place] [address] [address] Jun, Anxiety F41.9 [facility] [address] [address] Feb, Hypertension I10 ; Anxiety F41.9 and Abnormal liver function tests R79.89 [facility] [address] [address] Feb, [facility] [address] [address] Feb, [facility] [id number] [place] [address] Nov, [facility] [address] [address] Sep, Hypertension I10 [facility] [id number] [place] [address] August, Hypertension I10 ; Anxiety F41.9 and Abnormal liver function tests R79.89 [facility] [address] [address] Jul, Anxiety F41.9 [facility] [address] [address] Jun, [facility] [address] [place] [address] May, Hypertension I10 and Anxiety F41.9 [facility] [id number] [place] [address] Mar, [facility] [id number] [place] [address] Feb, [facility] [id number] [place] [address] Nov, [facility] [id number] [place] [address] Nov, Knee sprain 844.9 [facility] [id number] [place] [address] Nov, Essential hypertension, benign 401.1 and Nondependent alcohol abuse, unspecified drunkenness 305.00 [facility] [id number] [place] [address] Nov, [facility] [id number] [place] [address] Oct, [facility] [address] [place] [address] Sep, [facility] [id number] [place] [address] Sep, [facility] [address] [place] [address] Jul, [facility] [id number] [place] [address] Jul, [facility] [address], [place] [address] Jun, [facility] [address] [place] [address] Jun, [facility] [place] [facility] [address] [id number] [place] [address] May, 2014 [facility] [place] [facility] [address] [id number] [place] [address] May, 2014 [facility] [place] [facility] [address] [id number] [place] [address] May, 2014 [facility] [place] [facility] [address] [id number] [place] [address] May, 2014 [facility] [place] [facility] [address] [id number] [place] [address] Feb, [facility] [place] [facility] [address] [id number] [place] [address] Feb, [facility] [place] [facility] [address] [id number] [place] [address] Nov, [facility] [place] [facility] [address] [id number] [place] [address] Nov, [facility] [place] [facility] [address] [id number] [place] [address] Nov, [facility] [place] [facility] [address] [id number] [place] [address] Nov, [facility] [place] [facility] [address] [id number] [place] [address] Oct, [facility] [place] [facility] [address] [id number] [place] [address] Oct, [facility] [place] [facility] [address] [id number] [place] [address] Oct, [facility] [place] [facility] [address] [id number] [place] [address] Oct, [facility] [place] [facility] [address] [id number] [place] [address] Oct, [facility] [place] [facility] [address] [id number] [place] [address] Nov, [facility] [address] [id number] [place] [address] August, [facility] [place] [facility] [address] [id number] [place] [address] Jul, [facility] [address] [id number] [place] [address] Jul, [facility] [place] [facility] [address] [id number] [place] [address] Apr, [facility] [place] [facility] [address] [id number] [place] [address] Apr, [facility] [place] [facility] [address] [id number] [place] [address] Apr, [facility] [address] [id number] [place] [address] Feb, [facility] [place] [facility] [address] [id number] [place] [address] Feb, [facility] [place] [facility] [address] [id number] [place] [address] Dec, [facility] [place] [facility] [address] [id number] [place] [address] Nov, [facility] [place] [facility] [address] [id number] [place] [address] Oct, [facility] [place] [facility] [address] [id number] [place] [address] Oct, [facility] [place] [facility] [address] [id number] [place] [address] Oct, [facility] [place] [facility] [address] [id number] [place] [address] Sep, [facility] [place] [facility] [address] [id number] [place] [address] Sep, [facility] [address] [facility] [id number], [place] [address] Sep, [facility] [address] [facility] [id number], [place] [address] August, [facility] [address] [facility] [id number], [place] [address] August, [facility] [address] [facility] [id number], [place] [address] Jul, [facility] [address] [facility] [id number], [place] [address] Jun, [facility] [address] [facility] [id number], [place] [address] Jun, [facility] [id number], [place] [address] Apr, [facility] [id number], [place] [address] Apr, [facility] [id number], [place] [address] Mar, [facility] [id number], [place] [address] Mar, [facility] [address] [id number], [place] [address] Mar, [facility] [id number], [place] [address] Mar, [facility] [address] [id number], [place] [address] Jan, IMMUNIZATIONS No Known Immunizations SOCIAL HISTORY Never Assessed REASON FOR VISIT EMR-[facility] [place] PLAN OF CARE VITAL SIGNS MEDICATIONS Unknown [...]
--- OUTSIDE RECORDS SUMMARY | 2018-11-17 02:00 | XMS REPORT ---
Author Author Migration, Doctor Organization [facility] Address Unknown Phone Unavailable Care Team Providers Care Publishing Editor Name Role Phone Migration, Doctor Unavailable Unavailable PROBLEMS Type Condition ICD9-CM Code CIP65-FW Code Onset Dates Condition Status SNOMED Code Problem Anxiety F41.9 Active 44125780 Problem Hypertension I10 Active 86142160 Problem Erythrocytosis D75.1 Active 458805254 Problem Prediabetes R73.03 Active 587137773 Problem Abnormal liver function tests R79.89 Active 750727260 Problem Cigarette nicotine dependence without complication F17.210 Active 53710255 Problem Simple chronic bronchitis J41.0 Active 57493941 Problem Alcoholism F10.20 Active 8601783 ALLERGIES No Information ENCOUNTERS Encounter Location Date Diagnosis [place] [id number] [place] [address] Jul, Anxiety F41.9 [place] [id number] [place] [address] Jun, Anxiety F41.9 ; Elevated glucose R73.09 ; Hypertension I10 and Prediabetes R73.03 [place] [id number] [place] [address] Jun, Hypertension I10 and Anxiety F41.9 [place] [id number] [place] [address] May, Anxiety F41.9 [place] [id number] [place] [address] Apr, Anxiety F41.9 [place] [id number] [place] [address] Feb, Anxiety F41.9 [place] [id number] [place] [address] Jan, [place] [id number] [place] [address] Jan, Erythrocytosis D75.1 [place] [id number] [place] [address] Jan, Kidney disease N28.9 [place] [address] [address] Jan, Hypertension I10 ; Anxiety F41.9 and Weight loss R63.4 [place] [id number] [place] [address] Jan, Anxiety F41.9 [place] [address] [address] Dec, Anxiety F41.9 [place] [address] [address] Nov, Anxiety F41.9 [place] [address] [address] Oct, Anxiety F41.9 [place] [address] [address] Sep, Anxiety F41.9 [place] [id number] [place] [address] Sep, Simple chronic bronchitis J41.0 [place] [id number] [place] [address] Sep, Medicare annual wellness visit, initial Z00.00 ; Anxiety F41.9 ; Hypertension I10 ; Simple chronic bronchitis J41.0 and Routine adult health maintenance Z00.00 [place] [id number] [place] [address] August, [place] [id number] [place] [address] August, Dog bite, subsequent encounter W54.0XXD and Alcoholism F10.20 [place] [id number] [place] [address] August, Anxiety F41.9 [facility] [address] [address] Jul, Anxiety F41.9 [facility] [id number] [place] [address] Jul, Open bite of right buttock, initial encounter S31.815A ; Bitten by dog, initial encounter W54.0XXA and Encounter for immunization Z23 [place] [address] [address] Jun, Anxiety F41.9 [place] [address] [address] Jun, Anxiety F41.9 [place] [address] [address] Jun, [facility] [id number] [place] [address] Jun, Anxiety F41.9 [place] [address] [address] May, Anxiety F41.9 [place] [id number] [place] [address] Apr, Anxiety F41.9 [facility] [id number] [place] [address] Apr, Hypertension I10 and Anxiety F41.9 [facility] [id number] [place] [address] Apr, Anxiety F41.9 [facility] [id number] [place] [address] Apr, [facility] [id number] [place] [address] Oct, Hypertension I10 ; Anxiety F41.9 and Simple chronic bronchitis J41.0 [facility] [id number] [place] [address] Sep, [facility] [address] [address] Sep, Anxiety F41.9 [facility] [address] [address] Jun, Hypertension I10 ; Anxiety F41.9 ; Cigarette nicotine dependence without complication F17.210 and Tinea pedis of both feet B35.3 [place] [address] [address] Jun, [place] [address] [address] Jun, Anxiety F41.9 [facility] [address] [address] Feb, Hypertension I10 ; Anxiety F41.9 and Abnormal liver function tests R79.89 [facility] [address] [address] Feb, [facility] [address] [address] Feb, [facility] [id number] [place] [address] Nov, [facility] [address] [address] Sep, Hypertension I10 [facility] [id number] [place] [address] August, Hypertension I10 ; Anxiety F41.9 and Abnormal liver function tests R79.89 [facility] [address] [address] Jul, Anxiety F41.9 [facility] [address] [address] Jun, [facility] [id number] [place] [address] May, Hypertension I10 and Anxiety F41.9 [facility] [id number] [place] [address] Mar, [facility] [id number] [place] [address] Feb, [facility] [id number] [place] [address] Nov, [facility] [id number] [place] [address] Nov, Knee sprain 844.9 [facility] [id number] [place] [address] Nov, Essential hypertension, benign 401.1 and Nondependent alcohol abuse, unspecified drunkenness 305.00 [facility] [id number] [place] [address] Nov, [facility] [id number] [place] [address] Oct, [facility] [id number] [place] [address] Sep, [facility] [id number] [place] [address] Sep, [facility] [id number] [place] [address] Jul, [facility] [id number] [place] [address] Jul, [facility] [address] [address] Jun, [facility] [id number] [place] [address] Jun, [facility] [place] [facility] [address] [id number] [place] [address] May, 2014 [facility] [place] [facility] [address] [id number] [place] [address] May, 2014 [facility] [place] [facility] [address] [id number] [place] [address] May, 2014 [facility] [place] [facility] [address] [id number] [place] [address] May, 2014 [facility] [place] [facility] [address] [id number] [place] [address] Feb, [facility] [place] [facility] [address] [id number] [place] [address] Feb, [facility] [place] [facility] [address] [id number] [place] [address] Nov, [facility] [place] [facility] [address] [id number] [place] [address] Nov, [facility] [place] [facility] [address] [id number] [place] [address] Nov, [facility] [place] [facility] [address] [id number] [place] [address] Nov, [facility] [place] [facility] [address] [id number] [place] [address] Oct, [facility] [place] [facility] [address] [id number] [place] [address] Oct, [facility] [place] [facility] [address] [id number] [place] [address] Oct, [facility] [place] [facility] [address] [id number] [place] [address] Oct, [facility] [place] [facility] [address] [id number] [place] [address] Oct, [facility] [place] [facility] [address] [id number] [place] [address] Nov, [facility] [address] [id number] [place] [address] August, [facility] [place] [facility] [address] [id number] [place] [address] Jul, [facility] [address] [id number] [place] [address] Jul, [facility] [place] [facility] [address] [id number] [place] [address] Apr, [facility] [place] [facility] [address] [id number] [place] [address] Apr, [facility] [place] [facility] [address] [id number] [place] [address] Apr, [facility] [address] [id number] [place] [address] Feb, [facility] [place] [facility] [address] [id number] [place] [address] Feb, [facility] [place] [facility] [address] [id number] [place] [address] Dec, [facility] [place] [facility] [address] [id number] [place] [address] Nov, [facility] [place] [facility] [address] [id number] [place] [address] Oct, [facility] [place] [facility] [address] [id number] [place] [address] Oct, [facility] [place] [facility] [address] [id number] [place] [address] Oct, [facility] [place] [facility] [address] [id number] [place] [address] Sep, [facility] [place] [facility] [address] [id number] [place] [address] Sep, [facility] [address] [facility] [id number] [address] Sep, [facility] [address] [facility] [id number], [place] [address] August, [facility] [address] [facility] [id number] [address] August, [facility] [address] [facility] [id number] [address] Jul, [facility] [address] [facility] [id number][place] [address] Jun, [facility] [address] [facility] [id number], [place] [address] Jun, [facility] [address] [address] Apr, [facility] [address] [address] Apr, [facility] [address] [address] Mar, [facility] [address] [address] Mar, [facility] [id number] [address] Mar, [facility] [address] [address] Mar, [facility] [id number] [address] Jan, IMMUNIZATIONS No Known Immunizations SOCIAL HISTORY Never Assessed REASON FOR VISIT [place] [place] VITAL SIGNS MEDICATIONS Unknown [...]
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
--- OUTSIDE RECORDS SUMMARY | 2018-11-17 02:00 | XMS REPORT ---
Author Author Migration, Doctor Organization 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 Name Role Phone Migration, Doctor Unavailable Unavailable PROBLEMS Type Condition ICD9-CM Code CTI43-LX Code Onset Dates Condition Status SNOMED Code Problem Anxiety F41.9 Active 67287617 Problem Hypertension I10 Active 61990726 Problem Erythrocytosis D75.1 Active 468137538 Problem Prediabetes R73.03 Active 317004796 Problem Abnormal liver function tests R79.89 Active 381876283 Problem Cigarette nicotine dependence without complication F17.210 Active 90801783 Problem Simple chronic bronchitis J41.0 Active 38825418 Problem Alcoholism F10.20 Active 5777975 ALLERGIES No Information ENCOUNTERS Encounter Location Date Diagnosis [place] [address] [place] [id number] [place] [address] Jul, Anxiety F41.9 [place] [address] [place] [id number] [place] [address] Jun, Anxiety F41.9 ; Elevated glucose R73.09 ; Hypertension I10 and Prediabetes R73.03 [place] [address] [place] [id number] [place] [address] Jun, Hypertension I10 and Anxiety F41.9 [place] [address] [place] [id number] [place] [address] May, Anxiety F41.9 [place] [address] [place] [id number] [place] [address] Apr, Anxiety F41.9 [place] [address] [place] [id number] [place] [address] Feb, Anxiety F41.9 [place] [address] [place] [id number] [place] [address] Jan, [place] [address] [place] [id number] [place] [address] Jan, Erythrocytosis D75.1 [place] [address] [place] [id number] [place] [address] Jan, Kidney disease N28.9 [place] [address] [address] Jan, Hypertension I10 ; Anxiety F41.9 and Weight loss R63.4 [place] [address] [place] [id number] [place] [address] Jan, Anxiety F41.9 [place] [address] [address] Dec, Anxiety F41.9 [place] [address] [address] Nov, Anxiety F41.9 [place] [address] [address] Oct, Anxiety F41.9 [place] [address] [address] Sep, Anxiety F41.9 [place] [address] [place] [id number] [place] [address] Sep, Simple chronic bronchitis J41.0 [place] [address] [place] [id number] [place] [address] Sep, Medicare annual wellness visit, initial Z00.00 ; Anxiety F41.9 ; Hypertension I10 ; Simple chronic bronchitis J41.0 and Routine adult health maintenance Z00.00 [place] [address] [place] [id number] [place] [address] August, [place] [address] [place] [id number] [place] [address] August, Dog bite, subsequent encounter W54.0XXD and Alcoholism F10.20 [place] [address] [place] [id number] [place] [address] August, Anxiety F41.9 [facility] [address] [address] Jul, Anxiety F41.9 [facility] [address] [place] [id number] [place] [address] Jul, Open bite of right buttock, initial encounter S31.815A ; Bitten by dog, initial encounter W54.0XXA and Encounter for immunization Z23 [place] [address] [address] Jun, Anxiety F41.9 [place] [address] [address] Jun, Anxiety F41.9 [place] [address] [address] Jun, [facility] [address] [place] [id number] [place] [address] Jun, Anxiety F41.9 [place] [address] [address] May, Anxiety F41.9 [place] [address] [place] [id number] [place] [address] Apr, Anxiety F41.9 [facility] [address] [place] [id number] [place] [address] Apr, Hypertension I10 and Anxiety F41.9 [facility] [address] [place] [id number] [place] [address] Apr, Anxiety F41.9 [facility] [address] [place] [id number] [place] [address] Apr, [facility] [address] [place] [id number] [place] [address] Oct, Hypertension I10 ; Anxiety F41.9 and Simple chronic bronchitis J41.0 [facility] [address] [id number] [place] [address] Sep, [facility] [address] [address] Sep, Anxiety F41.9 [facility] [address] [address] Jun, Hypertension I10 ; Anxiety F41.9 ; Cigarette nicotine dependence without complication F17.210 and Tinea pedis of both feet B35.3 [place] [address] [address] Jun, [place] [address] [address] Jun, Anxiety F41.9 [facility] [address] [address] Feb, Hypertension I10 ; Anxiety F41.9 and Abnormal liver function tests R79.89 [facility] [address] [address] Feb, [facility] [address] [address] Feb, [facility] [address] [place] [id number] [place] [address] Nov, [facility] [address] [address] Sep, Hypertension I10 [facility] [address] [place] [id number] [place] [address] August, Hypertension I10 ; Anxiety F41.9 and Abnormal liver function tests R79.89 [facility] [address] [address] Jul, Anxiety F41.9 [facility] [address] [address] Jun, [facility] [address] [place] [address] May, Hypertension I10 and Anxiety F41.9 [facility] [id number] [place] [address] Mar, [facility] [id number] [place] [address] Feb, [facility] [address] [place] [id number] [place] [address] Nov, [facility] [address] [id number] [place] [address] Nov, Knee sprain 844.9 [facility] [id number] [place] [address] Nov, Essential hypertension, benign 401.1 and Nondependent alcohol abuse, unspecified drunkenness 305.00 [facility] [id number] [place] [address] Nov, [facility] [id number] [place] [address] Oct, [facility] [address] [place] [address] Sep, [facility] [id number] [place] [address] Sep, [facility] [address] [place] [address] Jul, [facility] [id number] [place] [address] Jul, [facility] [address], [place] [address] Jun, [facility] [address] [place] [address] Jun, [facility] [place] [facility] [address] [id number] [place] [address] May, 2014 [facility] [place] [facility] [address] [id number] [place] [address] May, 2014 [facility] [place] [facility] [address] [id number] [place] [address] May, 2014 [facility] [place] [facility] [address] [id number] [place] [address] May, 2014 [facility] [place] [facility] [address] [id number] [place] [address] Feb, [facility] [place] [facility] [address] [id number] [place] [address] Feb, [facility] [place] [facility] [address] [id number] [place] [address] Nov, [facility] [place] [facility] [address] [id number] [place] [address] Nov, [facility] [place] [facility] [address] [id number] [place] [address] Nov, [facility] [place] [facility] [address] [id number] [place] [address] Nov, [facility] [place] [facility] [address] [id number] [place] [address] Oct, [facility] [place] [facility] [address] [id number] [place] [address] Oct, [facility] [place] [facility] [address] [id number] [place] [address] Oct, [facility] [place] [facility] [address] [id number] [place] [address] Oct, [facility] [place] [facility] [address] [id number] [place] [address] Oct, [facility] [place] [facility] [address] [id number] [place] [address] Nov, [facility] [address] [id number] [place] [address] August, [facility] [place] [facility] [address] [id number] [place] [address] Jul, [facility] [address] [id number] [place] [address] Jul, [facility] [place] [facility] [address] [id number] [place] [address] Apr, [facility] [place] [facility] [address] [id number] [place] [address] Apr, [facility] [place] [facility] [address] [id number] [place] [address] Apr, [facility] [address] [id number] [place] [address] Feb, [facility] [place] [facility] [address] [id number] [place] [address] Feb, [facility] [place] [facility] [address] [id number] [place] [address] Dec, [facility] [place] [facility] [address] [id number] [place] [address] Nov, [facility] [place] [facility] [address] [id number] [place] [address] Oct, [facility] [place] [facility] [address] [id number] [place] [address] Oct, [facility] [place] [facility] [address] [id number] [place] [address] Oct, [facility] [place] [facility] [address] [id number] [place] [address] Sep, [facility] [place] [facility] [address] [id number] [place] [address] Sep, [facility] [address] [facility] [id number], [place] [address] Sep, [facility] [address] [facility] [id number], [place] [address] August, [facility] [address] [facility] [id number], [place] [address] August, [facility] [address] [facility] [id number], [place] [address] Jul, [facility] [address] [facility] [id number], [place] [address] Jun, [facility] [address] [facility] [id number], [place] [address] Jun, [facility] [id number], [place] [address] Apr, [facility] [id number], [place] [address] Apr, [facility] [id number], [place] [address] Mar, [facility] [id number], [place] [address] Mar, [facility] [address] [id number], [place] [address] Mar, [facility] [id number], [place] [address] Mar, [facility] [address] [id number], [place] [address] Jan, IMMUNIZATIONS No Known Immunizations SOCIAL HISTORY Never Assessed REASON FOR VISIT [place] [place] VITAL SIGNS MEDICATIONS Unknown [...]
--- OUTSIDE RECORDS SUMMARY | 2018-11-17 02:01 | XMS REPORT ---
Author Author RICK STYLES [facility] Address [address] [place] [address] Care Team Providers Care Private Branch Exchange Repairer Name Role Phone RICK STYLES Unavailable PROBLEMS Type Condition ICD9-CM Code ISF64-BT Code Onset Dates Condition Status SNOMED Code Problem Alcoholism F10.20 Active 1691732 Problem Simple chronic bronchitis J41.0 Active 48790853 Problem Hypertension I10 Active 87199223 Problem Anxiety F41.9 Active 13945097 Problem Cigarette nicotine dependence without complication F17.210 Active 06964954 Problem Abnormal liver function tests R79.89 Active 852344024 ALLERGIES No Information ENCOUNTERS Encounter Location Date Diagnosis [facility] [address] [address] Dec, Anxiety F41.9 [facility] [address] [address] Nov, Anxiety F41.9 [place] [address] [address] Oct, Anxiety F41.9 [place] [id number] [place] [address] Sep, Anxiety F41.9 [place] [id number] [place] [address] Sep, Simple chronic bronchitis J41.0 [place] [address] [address] Sep, Medicare annual wellness visit, initial Z00.00 ; Anxiety F41.9 ; Hypertension I10 ; Simple chronic bronchitis J41.0 and Routine adult health maintenance Z00.00 [place] [address] [address] August, [facility] [id number] [place] [address] August, Dog bite, subsequent encounter W54.0XXD and Alcoholism F10.20 [facility] [address] [address] August, Anxiety F41.9 [place] [address] [address] Jul, Anxiety F41.9 [place] [address] [address] Jul, Open bite of right buttock, initial encounter S31.815A ; Bitten by dog, initial encounter W54.0XXA and Encounter for immunization Z23 [place] [address] [address] Jun, Anxiety F41.9 [place] [address] [address] Jun, Anxiety F41.9 [place] [address] [address] Jun, [facility] [id number] [place] [address] Jun, Anxiety F41.9 [place] [address] [address] May, Anxiety F41.9 [facility] [id number] [place] [address] Apr, Anxiety F41.9 [place] [address] [address] Apr, Hypertension I10 and Anxiety F41.9 [facility] [address] [address] Apr, Anxiety F41.9 [place] [id number] [place] [address] Apr, [place] [address] [address] Oct, Hypertension I10 ; Anxiety F41.9 and Simple chronic bronchitis J41.0 [place] [id number] [place] [address] Sep, [place] [address] [address] Sep, Anxiety F41.9 [place] [address] [address] Jun, Hypertension I10 ; Anxiety F41.9 ; Cigarette nicotine dependence without complication F17.210 and Tinea pedis of both feet B35.3 [place] [id number] [place] [address] Jun, [place] [address] [address] Jun, Anxiety F41.9 [place] [address] [address] Feb, Hypertension I10 ; Anxiety F41.9 and Abnormal liver function tests R79.89 [place] [id number] [place] [address] Feb, [place] [id number] [place] [address] Feb, [facility] [id number] [place] [address] Nov, [place] [id number] [place] [address] Sep, Hypertension I10 [place] [id number] [place] [address] August, Hypertension I10 ; Anxiety F41.9 and Abnormal liver function tests R79.89 [facility] [id number] [place] [address] Jul, Anxiety F41.9 [facility] [id number] [place] [address] Jun, [facility] [id number] [place] [address] May, Hypertension I10 and Anxiety F41.9 [facility] [id number] [place] [address] Mar, [facility] [id number] [place] [address] Feb, [facility] [id number] [place] [address] Nov, [facility] [id number] [place] [address] Nov, Knee sprain 844.9 [facility] [id number] [place] [address] Nov, Essential hypertension, benign 401.1 and Nondependent alcohol abuse, unspecified drunkenness 305.00 [facility] [id number] [place] [address] Nov, [facility] [id number] [place] [address] Oct, [facility] [id number] [place] [address] Sep, [facility] [id number] [place] [address] Sep, [facility] [id number] [place] [address] Jul, [facility] [id number] [place] [address] Jul, [facility] [place] [facility] [address] [id number] [place] [address] Jun, 2014 [facility] [place] [facility] [address] [id number] [place] [address] Jun, 2014 [facility] [place] [facility] [address] [id number] [place] [address] May, 2014 [facility] [place] [facility] [address] [id number] [place] [address] May, 2014 [facility] [place] [facility] [address] [id number] [place] [address] May, 2014 [facility] [place] [facility] [address] [id number] [place] [address] May, 2014 [facility] [place] [facility] [address] [id number] [place] [address] Feb, [facility] [place] [facility] [address] [id number] [place] [address] Feb, [facility] [place] [facility] [address] [id number] [place] [address] Nov, [facility] [place] [facility] [address] [id number] [place] [address] Nov, [facility] [place] [facility] [address] [id number] [place] [address] Nov, [facility] [place] [facility] [address] [id number] [place] [address] Nov, [facility] [place] [facility] [address] [id number] [place] [address] Oct, [facility] [place] [facility] [address] [id number] [place] [address] Oct, [facility] [place] [facility] [address] [id number] [place] [address] Oct, [facility] [place] [facility] [address] [id number] [place] [address] Oct, [facility] [address] [id number] [place] [address] Oct, [facility] [place] [facility] [address] [id number] [place] [address] Nov, [facility] [address] [id number] [place] [address] August, [facility] [address] [id number] [place] [address] Jul, [facility] [address] [id number] [place] [address] Jul, [facility] [place] [facility] [address] [id number] [place] [address] Apr, [facility] [address] [id number] [place] [address] Apr, [facility] [address] [id number] [place] [address] Apr, [facility] [address] [id number] [place] [address] Feb, [facility] [address] [id number] [place] [address] Feb, [facility] [address] [id number] [place] [address] Dec, [facility] [place] [facility] [address] [id number] [place] [address] Nov, [facility] [place] [facility] [address] [id number] [place] [address] Oct, [facility] [place] [facility] [address] [id number] [place] [address] Oct, [facility] [place] [facility] [address] [id number] [place] [address] Oct, [facility] [place] [facility] [address] [facility] [id number] [address] Sep, [facility] [address] [facility] [id number] [place] [address] Sep, [facility] [address] [facility] [id number] [place] [address] Sep, [facility] [address] [facility] [id number] [place] [address] August, [facility] [address] [facility] [id number] [place] [address] August, [facility] [address] [facility] [id number] [place] [address] Jul, [facility] [address] [facility] [id number] [place] [address] Jun, [facility] [id number] [address] Jun, [facility] [id number] [address] Apr, [facility] [id number] [address] Apr, [facility] [address] [place] [id number] [address] Mar, [facility] [address] [place] [id number] [address] Mar, [facility] [address] [place] [id number] [address] Mar, [facility] [address] [address] Mar, [facility] [address] [place] [address] [id number] [address] Jan, IMMUNIZATIONS No Known Immunizations SOCIAL HISTORY Never Assessed REASON FOR VISIT Controlled Med Refill 12/15 PLAN OF CARE VITAL SIGNS MEDICATIONS Medication [...]
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
--- OUTSIDE RECORDS SUMMARY | 2018-11-17 02:01 | XMS REPORT ---
Author Author RICK STYLES [facility] Address [address] [place] [address] Care Team Providers Care Pathology Laboratory Aides Teacher Name Role Phone RICK STYLES Unavailable PROBLEMS Type Condition ICD9-CM Code JTV98-SU Code Onset Dates Condition Status SNOMED Code Problem Alcoholism F10.20 Active 0061846 Problem Simple chronic bronchitis J41.0 Active 57809363 Problem Hypertension I10 Active 03676862 Problem Anxiety F41.9 Active 99975546 Problem Cigarette nicotine dependence without complication F17.210 Active 25371012 Problem Abnormal liver function tests R79.89 Active 196043485 ALLERGIES No Information ENCOUNTERS Encounter Location Date Diagnosis [facility] [address] [address] Dec, Anxiety F41.9 [place] [address] [address] Nov, Anxiety F41.9 [place] [address] [address] Oct, Anxiety F41.9 [place] [address] [place] [id number] [place] [address] Sep, Anxiety F41.9 [place] [address] [place] [id number] [place] [address] Sep, Simple chronic bronchitis J41.0 [place] [address] [address] Sep, Medicare annual wellness visit, initial Z00.00 ; Anxiety F41.9 ; Hypertension I10 ; Simple chronic bronchitis J41.0 and Routine adult health maintenance Z00.00 [place] [address] [address] August, [facility] [address] [place] [id number] [place] [address] August, Dog bite, subsequent encounter W54.0XXD and Alcoholism F10.20 [facility] [address] [address] August, Anxiety F41.9 [place] [address] [address] Jul, Anxiety F41.9 [place] [address] [address] Jul, Open bite of right buttock, initial encounter S31.815A ; Bitten by dog, initial encounter W54.0XXA and Encounter for immunization Z23 [place] [address] [address] Jun, Anxiety F41.9 [place] [address] [address] Jun, Anxiety F41.9 [place] [address] [address] Jun, [facility] [address] [place] [id number] [place] [address] Jun, Anxiety F41.9 [place] [address] [address] May, Anxiety F41.9 [facility] [address] [place] [id number] [place] [address] Apr, Anxiety F41.9 [place] [address] [address] Apr, Hypertension I10 and Anxiety F41.9 [facility] [address] [address] Apr, Anxiety F41.9 [place] [address] [place] [id number] [place] [address] Apr, [place] [address] [address] Oct, Hypertension I10 ; Anxiety F41.9 and Simple chronic bronchitis J41.0 [place] [address] [place] [id number] [place] [address] Sep, [place] [address] [address] Sep, Anxiety F41.9 [place] [address] [address] Jun, Hypertension I10 ; Anxiety F41.9 ; Cigarette nicotine dependence without complication F17.210 and Tinea pedis of both feet B35.3 [place] [address] [place] [id number] [place] [address] Jun, [place] [address] [address] Jun, Anxiety F41.9 [place] [address] [address] Feb, Hypertension I10 ; Anxiety F41.9 and Abnormal liver function tests R79.89 [place] [address] [place] [id number] [place] [address] Feb, [place] [address] [place] [id number] [place] [address] Feb, [facility] [address] [place] [id number] [place] [address] Nov, [place] [address] [place] [id number] [place] [address] Sep, Hypertension I10 [place] [address] [place] [id number] [place] [address] August, Hypertension I10 ; Anxiety F41.9 and Abnormal liver function tests R79.89 [facility] [id number] [place] [address] Jul, Anxiety F41.9 [facility] [address] [place] [id number] [place] [address] Jun, [facility] [address] [place] [id number] [place] [address] May, Hypertension I10 and Anxiety F41.9 [facility] [address] [place] [id number] [place] [address] Mar, [facility] [address] [place] [id number] [place] [address] Feb, [facility] [address] [place] [id number] [place] [address] Nov, [facility] [address] [place] [id number] [place] [address] Nov, Knee sprain 844.9 [facility] [address] [place] [id number] [place] [address] Nov, Essential hypertension, benign 401.1 and Nondependent alcohol abuse, unspecified drunkenness 305.00 [facility] [address] [place] [id number] [place] [address] Nov, [facility] [address] [place] [id number] [place] [address] Oct, [facility] [address] [place] [id number] [place] [address] Sep, [facility] [address] [place] [id number] [place] [address] Sep, [facility] [address] [place] [id number] [place] [address] Jul, [facility] [address] [place] [id number] [place] [address] Jul, [facility] [place] [facility] [address] [id number] [place] [address] Jun, 2014 [facility] [place] [facility] [address] [id number] [place] [address] Jun, 2014 [facility] [place] [facility] [address] [id number] [place] [address] May, 2014 [facility] [place] [facility] [address] [id number] [place] [address] May, 2014 [facility] [place] [facility] [address] [id number] [place] [address] May, 2014 [facility] [place] [facility] [address] [id number] [place] [address] May, 2014 [facility] [place] [facility] [address] [id number] [place] [address] Feb, [facility] [place] [facility] [address] [id number] [place] [address] Feb, [facility] [place] [facility] [address] [id number] [place] [address] Nov, [facility] [place] [facility] [address] [id number] [place] [address] Nov, [facility] [place] [facility] [address] [id number] [place] [address] Nov, [facility] [place] [facility] [address] [id number] [place] [address] Nov, [facility] [place] [facility] [address] [id number] [place] [address] Oct, [facility] [place] [facility] [address] [id number] [place] [address] Oct, [facility] [place] [facility] [address] [id number] [place] [address] Oct, [facility] [place] [facility] [address] [id number], [place] [address] Oct, [facility] [address] [id number] [place] [address] Oct, [facility] [place] [facility] [address] [id number] [place] [address] Nov, [facility] [address] [id number] [place] [address] August, [facility] [address] [id number] [place] [address] Jul, [facility] [address] [id number] [place] [address] Jul, [facility] [place] [facility] [address] [id number] [place] [address] Apr, [facility] [address] [id number] [place] [address] Apr, [facility] [address] [id number] [place] [address] Apr, [facility] [address] [id number] [place] [address] Feb, [facility] [address] [id number] [place] [address] Feb, [facility] [address] [id number] [place] [address] Dec, [facility] [place] [facility] [address] [id number] [place] [address] Nov, [facility] [place] [facility] [address] [id number] [place] [address] Oct, [facility] [place] [facility] [address] [id number] [place] [address] Oct, [facility] [place] [facility] [address] [id number] [place] [address] Oct, [facility] [place] [facility] [address] [facility] [id number], [place] [address] 29 Sep, 2011 [facility] [address] [facility] [id number], [place] [address] Sep, [facility] [address] [facility] [id number], [place] [address] Sep, [facility] [address] [facility] [id number], [place] [address] August, [facility] [address] [facility] [id number], [place] [address] August, [facility] [address] [facility] [id number], [place] [address] Jul, [facility] [address] [facility] [id number], [place] [address] Jun, [facility] [address], [place] [address] Jun, [facility] [address] [facility] [id number], [place] [address] Apr, [facility] [address], [place] [address] Apr, [facility] [address] [place] [id number] [address] Mar, [facility] [address] [place] [id number], [place] [address] Mar, [facility] [address] [facility] [id number], [place] [address] Mar, [facility] [address], [place] [address] Mar, [facility] [address] [facility] [id number], [place] [address] Jan, IMMUNIZATIONS No Known Immunizations SOCIAL HISTORY [...]
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
--- OUTSIDE RECORDS SUMMARY | 2018-11-17 02:02 | XMS REPORT ---
Author Author RICK STYLES [facility] Address [address] [place] [address] Care Team Providers Care Crimping Machine Operator Name Role Phone RICK STYLES Unavailable PROBLEMS Type Condition ICD9-CM Code MQP15-MC Code Onset Dates Condition Status SNOMED Code Problem Alcoholism F10.20 Active 7462782 Problem Simple chronic bronchitis J41.0 Active 17312692 Problem Hypertension I10 Active 93778543 Problem Anxiety F41.9 Active 37831891 Problem Cigarette nicotine dependence without complication F17.210 Active 00650307 Problem Abnormal liver function tests R79.89 Active 298288483 ALLERGIES No Information ENCOUNTERS Encounter Location Date Diagnosis [facility] [address] [address] 17 Nov, 2017 Anxiety F41.9 [facility] [address] [address] Oct, Anxiety F41.9 [place] [address] [id number] [place] [address] Sep, Anxiety F41.9 [place] [id number] [place] [address] Sep, Simple chronic bronchitis J41.0 [facility] [address] [address] Sep, Medicare annual wellness visit, initial Z00.00 ; Anxiety F41.9 ; Hypertension I10 ; Simple chronic bronchitis J41.0 and Routine adult health maintenance Z00.00 [facility] [id number] [place] [address] August, [place] [address] [address] August, Dog bite, subsequent encounter W54.0XXD and Alcoholism F10.20 [facility] [address] [address] August, Anxiety F41.9 [facility] [address] [address] Jul, Anxiety F41.9 [place] [address] [address] Jul, Open bite of right buttock, initial encounter S31.815A ; Bitten by dog, initial encounter W54.0XXA and Encounter for immunization Z23 [place] [address] [address] Jun, Anxiety F41.9 [place] [address] [address] Jun, Anxiety F41.9 [place] [address] [address] Jun, [facility] [address] [address] Jun, Anxiety F41.9 [place] [address] [address] May, Anxiety F41.9 [place] [address] [address] Apr, Anxiety F41.9 [facility] [address] [address] Apr, Hypertension I10 and Anxiety F41.9 [facility] [address] [address] Apr, Anxiety F41.9 [facility] [address] [address] Apr, [facility] [address] [address] Oct, Hypertension I10 ; Anxiety F41.9 and Simple chronic bronchitis J41.0 [place] [address] [address] Sep, [place] [address] [address] Sep, Anxiety F41.9 [place] [address] [address] Jun, Hypertension I10 ; Anxiety F41.9 ; Cigarette nicotine dependence without complication F17.210 and Tinea pedis of both feet B35.3 [place] [address] [address] Jun, [place] [address] [address] Jun, Anxiety F41.9 [place] [address] [address] Feb, Hypertension I10 ; Anxiety F41.9 and Abnormal liver function tests R79.89 [place] [address] [address] Feb, [place] [address] [address] Feb, [place] [address] [address] Nov, [place] [address] [address] Sep, Hypertension I10 [place] [address] [address] August, Hypertension I10 ; Anxiety F41.9 and Abnormal liver function tests R79.89 [place] [address] [address] Jul, Anxiety F41.9 [facility] [id number] [place] [address] Jun, [facility] [id number] [place] [address] May, Hypertension I10 and Anxiety F41.9 [facility] [id number] [place] [address] Mar, [facility] [id number] [place] [address] Feb, [facility] [id number] [place] [address] Nov, [facility] [id number] [place] [address] Nov, Knee sprain 844.9 [facility] [id number] [place] [address] Nov, Essential hypertension, benign 401.1 and Nondependent alcohol abuse, unspecified drunkenness 305.00 [facility] [id number] [place] [address] Nov, [facility] [id number] [place] [address] Oct, [facility] [id number] [place] [address] Sep, [facility] [id number] [place] [address] Sep, [facility] [id number] [place] [address] Jul, [facility] [id number] [place] [address] Jul, [facility] [id number] [place] [address] Jun, [facility] [place] [facility] [address] [id number] [place] [address] Jun, [facility] [place] [facility] [address] [id number] [place] [address] May, 2014 [facility] [place] [facility] [address] [id number] [place] [address] May, 2014 [facility] [place] [facility] [address] [id number] [place] [address] May, 2014 [facility] [place] [facility] [address] [id number] [place] [address] May, 2014 [facility] [place] [facility] [address] [id number] [place] [address] Feb, [facility] [place] [facility] [address] [id number] [place] [address] Feb, [facility] [place] [facility] [address] [id number] [place] [address] Nov, [facility] [place] [facility] [address] [id number] [place] [address] Nov, [facility] [place] [facility] [address] [id number] [place] [address] Nov, [facility] [place] [facility] [address] [id number] [place] [address] Nov, [facility] [place] [facility] [address] [id number] [place] [address] Oct, [facility] [place] [facility] [address] [id number] [place] [address] Oct, [facility] [place] [facility] [address] [id number] [place] [address] Oct, [facility] [place] [facility] [address] [id number] [place] [address] Oct, [facility] [place] [facility] [address] [id number] [place] [address] Oct, [facility] [address] [id number] [place] [address] Nov, [facility] [place] [facility] [address] [id number] [place] [address] August, [facility] [place] [facility] [address] [id number] [place] [address] Jul, [facility] [place] [facility] [address] [id number] [place] [address] Jul, [facility] [place] [facility] [address] [id number] [place] [address] Apr, [facility] [place] [facility] [address] [id number] [place] [address] Apr, [facility] [place] [facility] [address] [id number] [place] [address] Apr, [facility] [place] [facility] [address] [id number] [place] [address] Feb, [facility] [place] [facility] [address] [id number] [place] [address] Feb, [facility] [place] [facility] [address] [id number] [place] [address] Dec, [facility] [place] [facility] [address] [id number] [place] [address] Nov, [facility] [place] [facility] [address] [id number] [place] [address] Oct, [facility] [place] [facility] [address] [id number] [place] [address] Oct, [facility] [place] [facility] [address] [id number] [place] [address] Oct, [facility] [place] [facility] [address] [id number] [place] [address] Sep, [facility] [place] [facility] [address] [address] 08 Sep, 2011 [facility] [id number] [address] Sep, [facility] [id number] [address] August, [facility] [id number] [address] August, [facility] [id number] [address] Jul, [facility] [id number] [place] [address] Jun, [facility] [id number] [address] Jun, [facility] [id number] [place] [address] Apr, [facility] [id number] [address] Apr, [facility] [id number] [address] Mar, [facility] [id number] [address] Mar, [facility] [id number] [address] Mar, [facility] [address] [place] [id number] [address] Mar, [facility] [id number] [address] Jan, IMMUNIZATIONS No Known Immunizations SOCIAL HISTORY Never Assessed REASON FOR VISIT Valium 11/17 PLAN OF CARE VITAL SIGNS MEDICATIONS Medication [...]
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
--- OUTSIDE RECORDS SUMMARY | 2018-11-17 02:02 | XMS REPORT ---
Author Author RICK STYLES [facility] Address [address] [place] [address] Care Team Providers Care Stereo Compiler Name Role Phone RICK STYLES Unavailable PROBLEMS Type Condition ICD9-CM Code ATP58-ZH Code Onset Dates Condition Status SNOMED Code Problem Alcoholism F10.20 Active 5348628 Problem Simple chronic bronchitis J41.0 Active 47729988 Problem Hypertension I10 Active 81325475 Problem Anxiety F41.9 Active 58582414 Problem Cigarette nicotine dependence without complication F17.210 Active 90944751 Problem Abnormal liver function tests R79.89 Active 815326008 ALLERGIES No Information ENCOUNTERS Encounter Location Date Diagnosis [facility] [address] [address] 17 Nov, 2017 Anxiety F41.9 [facility] [address] [address] Oct, Anxiety F41.9 [place] [address] [place] [id number] [place] [address] Sep, Anxiety F41.9 [place] [address] [place] [id number] [place] [address] Sep, Simple chronic bronchitis J41.0 [facility] [address] [address] Sep, Medicare annual wellness visit, initial Z00.00 ; Anxiety F41.9 ; Hypertension I10 ; Simple chronic bronchitis J41.0 and Routine adult health maintenance Z00.00 [facility] [id number] [place] [address] August, [place] [address] [address] August, Dog bite, subsequent encounter W54.0XXD and Alcoholism F10.20 [facility] [address] [address] August, Anxiety F41.9 [facility] [address] [address] Jul, Anxiety F41.9 [place] [address] [address] Jul, Open bite of right buttock, initial encounter S31.815A ; Bitten by dog, initial encounter W54.0XXA and Encounter for immunization Z23 [place] [address] [address] Jun, Anxiety F41.9 [place] [address] [address] Jun, Anxiety F41.9 [place] [address] [address] Jun, [facility] [address] [address] Jun, Anxiety F41.9 [place] [address] [address] May, Anxiety F41.9 [place] [address] [address] Apr, Anxiety F41.9 [facility] [address] [address] Apr, Hypertension I10 and Anxiety F41.9 [facility] [address] [address] Apr, Anxiety F41.9 [facility] [address] [address] Apr, [facility] [address] [address] Oct, Hypertension I10 ; Anxiety F41.9 and Simple chronic bronchitis J41.0 [place] [address] [address] Sep, [place] [address] [address] Sep, Anxiety F41.9 [place] [address] [address] Jun, Hypertension I10 ; Anxiety F41.9 ; Cigarette nicotine dependence without complication F17.210 and Tinea pedis of both feet B35.3 [place] [address] [address] Jun, [place] [address] [address] Jun, Anxiety F41.9 [place] [address] [address] Feb, Hypertension I10 ; Anxiety F41.9 and Abnormal liver function tests R79.89 [place] [address] [address] Feb, [place] [address] [address] Feb, [place] [address] [address] Nov, [place] [address] [address] Sep, Hypertension I10 [place] [address] [address] August, Hypertension I10 ; Anxiety F41.9 and Abnormal liver function tests R79.89 [place] [address] [address] Jul, Anxiety F41.9 [facility] [address] [place] [address] Jun, [facility] [id number] [place] [address] May, Hypertension I10 and Anxiety F41.9 [facility] [id number] [place] [address] Mar, [facility] [id number] [place] [address] Feb, [facility] [id number] [place] [address] Nov, [facility] [id number] [place] [address] Nov, Knee sprain 844.9 [facility] [id number] [place] [address] Nov, Essential hypertension, benign 401.1 and Nondependent alcohol abuse, unspecified drunkenness 305.00 [facility] [id number] [place] [address] Nov, [facility] [id number] [place] [address] Oct, [facility] [address] [place] [address] Sep, [facility] [id number] [place] [address] Sep, [facility] [id number] [place] [address] Jul, [facility] [id number] [place] [address] Jul, [facility] [address] [place] [address] Jun, [facility] [place] [facility] [address] [id number] [place] [address] Jun, [facility] [place] [facility] [address] [id number] [place] [address] May, 2014 [facility] [place] [facility] [address] [id number] [place] [address] May, 2014 [facility] [place] [facility] [address] [id number] [place] [address] May, 2014 [facility] [place] [facility] [address] [id number] [place] [address] May, 2014 [facility] [place] [facility] [address] [id number] [place] [address] Feb, [facility] [place] [facility] [address] [id number] [place] [address] Feb, [facility] [place] [facility] [address] [id number] [place] [address] Nov, [facility] [place] [facility] [address] [id number] [place] [address] Nov, [facility] [place] [facility] [address] [id number] [place] [address] Nov, [facility] [place] [facility] [address] [id number] [place] [address] Nov, [facility] [place] [facility] [address] [id number] [place] [address] Oct, [facility] [place] [facility] [address] [id number] [place] [address] Oct, [facility] [place] [facility] [address] [id number] [place] [address] Oct, [facility] [place] [facility] [address] [id number] [place] [address] Oct, [facility] [place] [facility] [address] [id number] [place] [address] Oct, [facility] [address] [id number] [place] [address] Nov, [facility] [place] [facility] [address] [id number] [place] [address] August, [facility] [place] [facility] [address] [id number] [place] [address] Jul, [facility] [place] [facility] [address] [id number] [place] [address] Jul, [facility] [place] [facility] [address] [id number] [place] [address] Apr, [facility] [place] [facility] [address] [id number] [place] [address] Apr, [facility] [place] [facility] [address] [id number] [place] [address] Apr, [facility] [place] [facility] [address] [id number] [place] [address] Feb, [facility] [place] [facility] [address] [id number] [place] [address] Feb, [facility] [place] [facility] [address] [id number] [place] [address] Dec, [facility] [place] [facility] [address] [id number] [place] [address] Nov, [facility] [place] [facility] [address] [id number] [place] [address] Oct, [facility] [place] [facility] [address] [id number] [place] [address] Oct, [facility] [place] [facility] [address] [id number] [place] [address] Oct, [facility] [place] [facility] [address] [id number] [place] [address] Sep, [facility] [place] [facility] [address] [address] 08 Sep, 2011 [facility] [address] [address] Sep, [facility] [address] [address] August, [facility] [address] [address] August, [facility] [address] [address] Jul, [facility] [address] [place] [address] Jun, [facility] [address] [address] Jun, [facility] [address] [place] [address] Apr, [facility] [address] [place] [address] Apr, [facility] [address] [place] [address] Mar, [facility] [address] [address] Mar, [facility] [address] [place] [address] Mar, [facility] [address] [place] [id number] [address] Mar, [facility] [address] [address] Jan, IMMUNIZATIONS No Known Immunizations SOCIAL HISTORY Never Assessed REASON FOR VISIT Diazepam due 10/20 PLAN OF CARE VITAL SIGNS MEDICATIONS Medication [...]
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
--- OUTSIDE RECORDS SUMMARY | 2018-11-17 02:03 | XMS REPORT ---
Author Author RICK STYLES [facility] Address [address] [place] [address] Care Team Providers Care Geographic Information Systems Director Name Role Phone RICK STYLES Unavailable PROBLEMS Type Condition ICD9-CM Code QOP99-HF Code Onset Dates Condition Status SNOMED Code Problem Alcoholism F10.20 Active 6164169 Problem Simple chronic bronchitis J41.0 Active 23782310 Problem Hypertension I10 Active 06866767 Problem Anxiety F41.9 Active 14627559 Problem Cigarette nicotine dependence without complication F17.210 Active 13383649 Problem Abnormal liver function tests R79.89 Active 576629141 ALLERGIES No Information ENCOUNTERS Encounter Location Date Diagnosis [place] [address] [address] Nov, [place] [address] [address] Oct, Anxiety F41.9 [place] [address] [place] [id number] [place] [address] Sep, Anxiety F41.9 [place] [address] [place] [id number] [place] [address] Sep, Simple chronic bronchitis J41.0 [place] [address] [address] Sep, Medicare annual wellness visit, initial Z00.00 ; Anxiety F41.9 ; Hypertension I10 ; Simple chronic bronchitis J41.0 and Routine adult health maintenance Z00.00 [place] [address] [place] [id number] [place] [address] August, [place] [address] [address] August, Dog bite, subsequent encounter W54.0XXD and Alcoholism F10.20 [facility] [address] [address] August, Anxiety F41.9 [facility] [address] [address] Jul, Anxiety F41.9 [place] [address] [address] Jul, Open bite of right buttock, initial encounter S31.815A ; Bitten by dog, initial encounter W54.0XXA and Encounter for immunization Z23 [place] [address] [address] Jun, Anxiety F41.9 [place] [address] [address] Jun, Anxiety F41.9 [place] [address] [address] Jun, [facility] [address] [address] Jun, Anxiety F41.9 [place] [address] [address] May, Anxiety F41.9 [place] [address] [address] Apr, Anxiety F41.9 [facility] [address] [address] Apr, Hypertension I10 and Anxiety F41.9 [place] [address] [address] Apr, Anxiety F41.9 [place] [address] [address] Apr, [facility] [address] [address] Oct, Hypertension I10 ; Anxiety F41.9 and Simple chronic bronchitis J41.0 [place] [address] [address] Sep, [place] [address] [address] Sep, Anxiety F41.9 [place] [address] [address] Jun, Hypertension I10 ; Anxiety F41.9 ; Cigarette nicotine dependence without complication F17.210 and Tinea pedis of both feet B35.3 [place] [address] [address] Jun, [place] [address] [address] Jun, Anxiety F41.9 [place] [address] [address] Feb, Hypertension I10 ; Anxiety F41.9 and Abnormal liver function tests R79.89 [place] [address] [address] Feb, [place] [address] [address] Feb, [place] [address] [address] Nov, [place] [address] [address] Sep, Hypertension I10 [place] [address] [address] August, Hypertension I10 ; Anxiety F41.9 and Abnormal liver function tests R79.89 [place] [address] [address] Jul, Anxiety F41.9 [facility] [address] [address] Jun, [facility] [address] [place] [id number] [place] [address] May, Hypertension I10 and Anxiety F41.9 [facility] [address] [place] [id number] [place] [address] Mar, [facility] [address] [place] [id number] [place] [address] Feb, [facility] [address] [place] [id number] [place] [address] Nov, [facility] [address] [place] [id number] [place] [address] Nov, Knee sprain 844.9 [facility] [address] [place] [id number] [place] [address] Nov, Essential hypertension, benign 401.1 and Nondependent alcohol abuse, unspecified drunkenness 305.00 [facility] [id number] [place] [address] Nov, [facility] [address] [place] [id number] [place] [address] Oct, [facility] [address] [address] Sep, [facility] [address] [address] Sep, [facility] [address] [address] Jul, [facility] [id number] [place] [address] Jul, [facility] [address] [address] Jun, [facility] [address] [place] [id number] [place] [address] Jun, [facility] [place] [facility] [address] [id number] [place] [address] May, 2014 [facility] [place] [facility] [address] [id number] [place] [address] May, 2014 [facility] [place] [facility] [address] [id number] [place] [address] May, 2014 [facility] [place] [facility] [address] [id number] [place] [address] May, 2014 [facility] [place] [facility] [address] [id number] [place] [address] Feb, [facility] [place] [facility] [address] [id number] [place] [address] Feb, [facility] [place] [facility] [address] [id number] [place] [address] Nov, [facility] [place] [facility] [address] [id number] [place] [address] Nov, [facility] [place] [facility] [address] [id number] [place] [address] Nov, [facility] [place] [facility] [address] [id number] [place] [address] Nov, [facility] [place] [facility] [address] [id number] [place] [address] Oct, [facility] [place] [facility] [address] [id number] [place] [address] Oct, [facility] [place] [facility] [address] [id number] [place] [address] Oct, [facility] [place] [facility] [address] [id number] [place] [address] Oct, [facility] [place] [facility] [address] [id number] [place] [address] Oct, [facility] [place] [facility] [address] [id number] [place] [address] Nov, [facility] [place] [facility] [address] [id number] [place] [address] August, [facility] [place] [facility] [address] [id number] [place] [address] Jul, [facility] [place] [facility] [address] [id number] [place] [address] Jul, [facility] [place] [facility] [address] [id number] [place] [address] Apr, [facility] [place] [facility] [address] [id number] [place] [address] Apr, [facility] [place] [facility] [address] [id number] [place] [address] Apr, [facility] [place] [facility] [address] [id number] [place] [address] Feb, [facility] [place] [facility] [address] [id number] [place] [address] Feb, [facility] [place] [facility] [address] [id number] [place] [address] Dec, [facility] [place] [facility] [address] [id number] [place] [address] Nov, [facility] [place] [facility] [address] [id number] [place] [address] Oct, [facility] [place] [facility] [address] [id number] [place] [address] Oct, [facility] [place] [facility] [address] [id number] [place] [address] Oct, [facility] [place] [facility] [address] [id number] [place] [address] Sep, [facility] [place] [facility] [id number] [address] 08 Sep, 2011 [facility] [id number] [address] Sep, [facility] [id number] [address] August, [facility] [id number] [address] August, [facility] [id number] [address] Jul, [facility] [id number] [place] [address] Jun, [facility] [id number] [place] [address] Jun, [facility] [id number] [place] [address] Apr, [facility] [id number] [address] Apr, [facility] [id number] [place] [address] Mar, [facility] [id number] [address] Mar, [facility] [id number] [address] Mar, [facility] [id number] [address] Mar, [facility] [id number] [address] Jan, IMMUNIZATIONS No Known Immunizations SOCIAL HISTORY Never Assessed REASON FOR VISIT inhaler-stopped breathing PLAN OF CARE VITAL SIGNS MEDICATIONS Unknown [...]
--- OUTSIDE RECORDS SUMMARY | 2018-11-17 02:03 | XMS REPORT ---
Author Author RICK STYLES [facility] Address [address] [place] [address] Care Team Providers Care Director Integrated Name Role Phone RICK STYLES Unavailable PROBLEMS Type Condition ICD9-CM Code YDZ39-OB Code Onset Dates Condition Status SNOMED Code Problem Alcoholism F10.20 Active 5192865 Problem Simple chronic bronchitis J41.0 Active 77551617 Problem Hypertension I10 Active 16219839 Problem Anxiety F41.9 Active 81669196 Problem Cigarette nicotine dependence without complication F17.210 Active 05296760 Problem Abnormal liver function tests R79.89 Active 602373008 ALLERGIES No Information ENCOUNTERS Encounter Location Date Diagnosis [place] [id number] [address] Nov, [place] [address] [address] Oct, Anxiety F41.9 [place] [address] [place] [id number] [place] [address] Sep, Anxiety F41.9 [place] [address] [place] [id number] [place] [address] Sep, Simple chronic bronchitis J41.0 [place] [address] [address] Sep, Medicare annual wellness visit, initial Z00.00 ; Anxiety F41.9 ; Hypertension I10 ; Simple chronic bronchitis J41.0 and Routine adult health maintenance Z00.00 [place] [address] [place] [id number] [place] [address] August, [place] [address] [address] August, Dog bite, subsequent encounter W54.0XXD and Alcoholism F10.20 [facility] [address] [address] August, Anxiety F41.9 [facility] [address] [address] Jul, Anxiety F41.9 [place] [address] [address] Jul, Open bite of right buttock, initial encounter S31.815A ; Bitten by dog, initial encounter W54.0XXA and Encounter for immunization Z23 [place] [address] [address] Jun, Anxiety F41.9 [place] [address] [address] Jun, Anxiety F41.9 [place] [address] [address] Jun, [facility] [address] [address] Jun, Anxiety F41.9 [place] [address] [address] May, Anxiety F41.9 [place] [address] [address] Apr, Anxiety F41.9 [facility] [address] [address] Apr, Hypertension I10 and Anxiety F41.9 [place] [address] [address] Apr, Anxiety F41.9 [place] [address] [address] Apr, [facility] [address] [address] Oct, Hypertension I10 ; Anxiety F41.9 and Simple chronic bronchitis J41.0 [place] [address] [address] Sep, [place] [address] [address] Sep, Anxiety F41.9 [place] [address] [address] Jun, Hypertension I10 ; Anxiety F41.9 ; Cigarette nicotine dependence without complication F17.210 and Tinea pedis of both feet B35.3 [place] [address] [address] Jun, [place] [address] [address] Jun, Anxiety F41.9 [place] [address] [address] Feb, Hypertension I10 ; Anxiety F41.9 and Abnormal liver function tests R79.89 [place] [address] [address] Feb, [place] [address] [address] Feb, [place] [address] [address] Nov, [place] [address] [address] Sep, Hypertension I10 [place] [address] [address] August, Hypertension I10 ; Anxiety F41.9 and Abnormal liver function tests R79.89 [place] [address] [address] Jul, Anxiety F41.9 [facility] [address] [address] Jun, [facility] [address] [place] [id number] [place] [address] May, Hypertension I10 and Anxiety F41.9 [facility] [address] [place] [id number] [place] [address] Mar, [facility] [address] [place] [id number] [place] [address] Feb, [facility] [address] [place] [id number] [place] [address] Nov, [facility] [address] [place] [id number] [place] [address] Nov, Knee sprain 844.9 [facility] [address] [place] [id number] [place] [address] Nov, Essential hypertension, benign 401.1 and Nondependent alcohol abuse, unspecified drunkenness 305.00 [facility] [id number] [place] [address] Nov, [facility] [address] [place] [id number] [place] [address] Oct, [facility] [address], [place] [address] Sep, [facility] [address], [place] [address] Sep, [facility] [address] [address] Jul, [facility] [id number] [place] [address] Jul, [facility] [address] [address] Jun, [facility] [address] [place] [id number] [address] Jun, [facility] [place] [facility] [address] [id number] [place] [address] May, 2014 [facility] [place] [facility] [address] [id number] [place] [address] May, 2014 [facility] [place] [facility] [address] [id number] [place] [address] May, 2014 [facility] [place] [facility] [address] [id number] [place] [address] May, 2014 [facility] [place] [facility] [address] [id number] [place] [address] Feb, [facility] [place] [facility] [address] [id number] [place] [address] Feb, [facility] [place] [facility] [address] [id number] [place] [address] Nov, [facility] [place] [facility] [address] [id number] [place] [address] Nov, [facility] [place] [facility] [address] [id number] [place] [address] Nov, [facility] [place] [facility] [address] [id number] [place] [address] Nov, [facility] [place] [facility] [address] [id number] [place] [address] Oct, [facility] [place] [facility] [address] [id number] [place] [address] Oct, [facility] [place] [facility] [address] [id number] [place] [address] Oct, [facility] [place] [facility] [address] [id number] [place] [address] Oct, [facility] [place] [facility] [address] [id number] [place] [address] Oct, [facility] [address] [id number] [place] [address] Nov, [facility] [place] [facility] [address] [id number] [place] [address] August, [facility] [place] [facility] [address] [id number] [place] [address] Jul, [facility] [place] [facility] [address] [id number] [place] [address] Jul, [facility] [place] [facility] [address] [id number] [place] [address] Apr, [facility] [place] [facility] [address] [id number] [place] [address] Apr, [facility] [place] [facility] [address] [id number] [place] [address] Apr, [facility] [place] [facility] [address] [id number] [place] [address] Feb, [facility] [place] [facility] [address] [id number] [place] [address] Feb, [facility] [place] [facility] [address] [id number] [place] [address] Dec, [facility] [place] [facility] [address] [id number] [place] [address] Nov, [facility] [place] [facility] [address] [id number] [place] [address] Oct, [facility] [place] [facility] [address] [id number] [place] [address] Oct, [facility] [place] [facility] [address] [id number] [place] [address] Oct, [facility] [place] [facility] [address] [id number] [place] [address] Sep, [facility] [place] [facility] [address], [place] [address] 08 Sep, 2011 [facility] [address], [place] [address] Sep, [facility] [address], [place] [address] August, [facility] [address], [place] [address] August, [facility] [address], [place] [address] Jul, [facility] [id number] [place] [address] Jun, [facility] [address], [place] [address] Jun, [facility] [id number] [place] [address] Apr, [facility] [address], [place] [address] Apr, [facility] [address], [place] [address] Mar, [facility] [address], [place] [address] Mar, [facility] [address], [place] [address] Mar, [facility] [address], [place] [address] Mar, [facility] [address], [place] [address] Jan, IMMUNIZATIONS No Known Immunizations SOCIAL HISTORY Never Assessed REASON FOR VISIT Diazepam due 09/22 PLAN OF CARE VITAL SIGNS MEDICATIONS Medication [...]
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
--- OUTSIDE RECORDS SUMMARY | 2018-11-17 02:05 | XMS REPORT ---
Author Author RICK STYLES [facility] Address [address] [place] [address] Care Team Providers Care Continuous Improvement Specialist Name Role Phone RICK STYLES Unavailable PROBLEMS Type Condition ICD9-CM Code QET99-MO Code Onset Dates Condition Status SNOMED Code Problem Alcoholism F10.20 Active 0603856 Problem Simple chronic bronchitis J41.0 Active 83875306 Problem Hypertension I10 Active 39540961 Problem Anxiety F41.9 Active 98260056 Problem Cigarette nicotine dependence without complication F17.210 Active 50948702 Problem Abnormal liver function tests R79.89 Active 673888199 ALLERGIES No Information ENCOUNTERS Encounter Location Date Diagnosis [place] [address] [address] Oct, [place] [address] [address] Sep, Anxiety F41.9 [place] [address] [address] Sep, Simple chronic bronchitis J41.0 [place] [address] [place] [id number] [place] [address] Sep, Medicare annual wellness visit, initial Z00.00 ; Anxiety F41.9 ; Hypertension I10 ; Simple chronic bronchitis J41.0 and Routine adult health maintenance Z00.00 [place] [address] [place] [id number] [place] [address] August, [place] [address] [address] August, Dog bite, subsequent encounter W54.0XXD and Alcoholism F10.20 [place] [address] [address] August, Anxiety F41.9 [facility] [address] [place] [id number] [place] [address] Jul, Anxiety F41.9 [facility] [address] [address] Jul, Open bite of right buttock, initial encounter S31.815A ; Bitten by dog, initial encounter W54.0XXA and Encounter for immunization Z23 [facility] [address] [address] Jun, Anxiety F41.9 [place] [address] [address] Jun, Anxiety F41.9 [place] [address] [address] Jun, [facility] [address] [address] Jun, Anxiety F41.9 [facility] [address] [address] May, Anxiety F41.9 [facility] [address] [address] Apr, Anxiety F41.9 [place] [address] [address] Apr, Hypertension I10 and Anxiety F41.9 [facility] [address] [place] [id number] [place] [address] Apr, Anxiety F41.9 [facility] [address] [address] Apr, [facility] [address] [address] Oct, Hypertension I10 ; Anxiety F41.9 and Simple chronic bronchitis J41.0 [facility] [address] [place] [id number] [place] [address] Sep, [facility] [address] [place] [id number] [place] [address] Sep, Anxiety F41.9 [facility] [address] [place] [id number] [place] [address] Jun, Hypertension I10 ; Anxiety F41.9 ; Cigarette nicotine dependence without complication F17.210 and Tinea pedis of both feet B35.3 [facility] [address] [place] [id number] [place] [address] Jun, [facility] [address] [place] [id number] [place] [address] Jun, Anxiety F41.9 [facility] [address] [place] [id number] [place] [address] Feb, Hypertension I10 ; Anxiety F41.9 and Abnormal liver function tests R79.89 [facility] [address] [place] [id number] [place] [address] Feb, [facility] [address] [place] [id number] [place] [address] Feb, [facility] [address] [place] [id number] [place] [address] Nov, [facility] [address] [place] [id number] [place] [address] Sep, Hypertension I10 [facility] [address] [place] [id number] [place] [address] August, Hypertension I10 ; Anxiety F41.9 and Abnormal liver function tests R79.89 [facility] [address] [place] [id number] [place] [address] Jul, Anxiety F41.9 [facility] [address] [place] [id number] [place] [address] Jun, [facility] [address] [address] May, Hypertension I10 and Anxiety F41.9 [facility] [address] [place] [id number] [place] [address] Mar, [facility] [address] [place] [id number] [place] [address] Feb, [facility] [address] [place] [id number] [place] [address] Nov, [facility] [address] [place] [id number] [place] [address] Nov, Knee sprain 844.9 [facility] [address] [place] [id number] [place] [address] Nov, Essential hypertension, benign 401.1 and Nondependent alcohol abuse, unspecified drunkenness 305.00 [facility] [address] [place] [id number] [place] [address] Nov, [facility] [address] [place] [id number] [place] [address] Oct, [facility] [address] [place] [id number] [place] [address] Sep, [facility] [address] [place] [id number] [place] [address] Sep, [facility] [address] [place] [address] Jul, [facility] [address] [place] [address] Jul, [facility] [address] [place] [id number] [place] [address] Jun, [facility] [address] [place] [address] Jun, [facility] [address] [place] [id number] [place] [address] [place] [address] May, 2014 [facility] [place] [facility] [address] [id number] [place] [address] May, 2014 [facility] [place] [facility] [address] [id number] [place] [address] May, 2014 [facility] [place] [facility] [address] [id number] [place] [address] May, 2014 [facility] [place] [facility] [address] [id number] [place] [address] Feb, [facility] [place] [facility] [address] [id number] [place] [address] Feb, [facility] [place] [facility] [address] [id number] [place] [address] Nov, [facility] [place] [facility] [address] [id number] [place] [address] Nov, [facility] [place] [facility] [address] [id number] [place] [address] Nov, [facility] [place] [facility] [address] [id number] [place] [address] Nov, [facility] [place] [facility] [address] [id number] [place] [address] Oct, [facility] [place] [facility] [address] [id number] [place] [address] Oct, [facility] [place] [facility] [address] [id number] [place] [address] Oct, [facility] [place] [facility] [address] [id number] [place] [address] Oct, [facility] [place] [facility] [address] [id number] [place] [address] Oct, [facility] [place] [facility] [address] [id number] [place] [address] Nov, [facility] [place] [facility] [address] [id number] [place] [address] August, [facility] [address] [id number] [place] [address] Jul, [facility] [place] [facility] [address] [id number] [place] [address] Jul, [facility] [address] [id number] [place] [address] Apr, [facility] [address] [id number] [place] [address] Apr, [facility] [place] [facility] [address] [id number] [place] [address] Apr, [facility] [address] [id number] [place] [address] Feb, [facility] [address] [id number] [place] [address] Feb, [facility] [address] [id number] [place] [address] Dec, [facility] [address] [id number] [place] [address] Nov, [facility] [place] [facility] [address] [id number] [place] [address] Oct, [facility] [place] [facility] [address] [id number] [place] [address] Oct, [facility] [place] [facility] [address] [id number] [place] [address] Oct, [facility] [place] [facility] [address] [id number] [place] [address] Sep, [facility] [place] [facility] [address] [id number] [place] [address] Sep, [facility] [place] [facility] [address] [id number], [place] [address] Sep, [facility] [address] [address] August, [facility] [address] [address] August, [facility] [address] [address] Jul, [facility] [address] [address] Jun, [facility] [address] [address] Jun, [facility] [address] [address] Apr, [facility] [address] [address] Apr, [facility] [address] [address] Mar, [facility] [address] [address] Mar, [facility] [address] [address] Mar, [facility] [address] [place] [id number] [address] Mar, [facility] [address] [place] [id number] [address] Jan, IMMUNIZATIONS No Known Immunizations SOCIAL HISTORY Never Assessed REASON FOR VISIT Need for repeat UDS PLAN OF CARE VITAL SIGNS MEDICATIONS [...]
--- OUTSIDE RECORDS SUMMARY | 2018-11-17 02:05 | XMS REPORT ---
Author Author RICK STYLES Organization [facility] Address [address] [place] [address] Care Team Providers Care Dialysis Patient Care Technician Name Role Phone RICK STYLES Unavailable PROBLEMS Type Condition ICD9-CM Code BVE45-DU Code Onset Dates Condition Status SNOMED Code Problem Simple chronic bronchitis J41.0 Active 60292859 Problem Cigarette nicotine dependence without complication F17.210 Active 14039878 Problem Anxiety F41.9 Active 83483683 Problem Abnormal liver function tests R79.89 Active 540668229 Problem Hypertension I10 Active 04947227 ALLERGIES No Information ENCOUNTERS Encounter Location Date Diagnosis [place] [id number] [place] [address] Sep, Simple chronic bronchitis J41.0 [facility] [address] [place] [id number] [place] [address] Sep, Medicare annual wellness visit, initial Z00.00 ; Anxiety F41.9 ; Hypertension I10 ; Simple chronic bronchitis J41.0 and Routine adult health maintenance Z00.00 [facility] [address], [place] [address] August, [facility] [address] [place] [id number] [place] [address] August, [facility] [address] [place] [address] August, Anxiety F41.9 [place] [address] [place] [id number] [place] [address] Jul, Anxiety F41.9 [place] [address] [place] [address] Jul, Open bite of right buttock, initial encounter S31.815A ; Bitten by dog, initial encounter W54.0XXA and Encounter for immunization Z23 [facility] [address] [address] Jun, Anxiety F41.9 [facility] [address] [place] [id number] [place] [address] Jun, Anxiety F41.9 [facility] [address] [address] Jun, [facility] [address] [address] Jun, Anxiety F41.9 [place] [address] [address] May, Anxiety F41.9 [place] [address] [address] Apr, Anxiety F41.9 [facility] [address] [address] Apr, Hypertension I10 and Anxiety F41.9 [place] [address] [address] Apr, Anxiety F41.9 [facility] [address] [address] Apr, [facility] [address] [place] [id number] [place] [address] Oct, Hypertension I10 ; Anxiety F41.9 and Simple chronic bronchitis J41.0 [place] [address] [address] Sep, [facility] [address] [address] Sep, Anxiety F41.9 [facility] [address] [address] Jun, Hypertension I10 ; Anxiety F41.9 ; Cigarette nicotine dependence without complication F17.210 and Tinea pedis of both feet B35.3 [place] [address] [address] Jun, [facility] [address] [address] Jun, Anxiety F41.9 [facility] [address] [address] Feb, Hypertension I10 ; Anxiety F41.9 and Abnormal liver function tests R79.89 [place] [address] [address] Feb, [facility] [address] [address] Feb, [place] [address] [address] Nov, [facility] [address] [address] Sep, Hypertension I10 [place] [address] [address] August, Hypertension I10 ; Anxiety F41.9 and Abnormal liver function tests R79.89 [place] [address] [place] [id number] [place] [address] Jul, Anxiety F41.9 [facility] [address] [address] Jun, [facility] [address] [address] May, Hypertension I10 and Anxiety F41.9 [facility] [address] [place] [id number] [place] [address] Mar, [place] [address] [address] Feb, [facility] [address] [facility] [id number] [address] Nov, [facility] [address], [place] [address] Nov, Knee sprain 844.9 [facility] [address] [place] [id number] [address] Nov, Essential hypertension, benign 401.1 and Nondependent alcohol abuse, unspecified drunkenness 305.00 [facility] [address] [place] [id number], [place] [address] Nov, [facility] [address] [place] [id number] [place] [address] Oct, [facility] [address] [place] [id number] [address] Sep, [facility] [address], [place] [address] Sep, [facility] [address], [place] [address] Jul, [facility] [address], [place] [address] Jul, [facility] [address], [place] [address] Jun, [facility] [address], [place] [address] Jun, [facility] [address] [place] [id number], [place] [address] May, [facility] [address], [place] [address] May, [facility] [address], [place] [address] May, [facility] [address] [place] [id number] [address] May, [facility] [place] [facility] [address] [id number] [place] [address] Feb, [facility] [place] [facility] [address] [id number] [place] [address] Feb, [facility] [place] [facility] [address] [id number] [place] [address] Nov, [facility] [place] [facility] [address] [id number] [place] [address] Nov, [facility] [place] [facility] [address] [id number] [place] [address] Nov, [facility] [place] [facility] [address] [id number] [place] [address] Nov, [facility] [place] [facility] [address] [id number] [place] [address] Oct, [facility] [place] [facility] [address] [id number] [place] [address] Oct, [facility] [place] [facility] [address] [id number] [place] [address] Oct, [facility] [place] [facility] [address] [id number] [place] [address] Oct, [facility] [place] [facility] [address] [id number] [place] [address] Oct, [facility] [place] [facility] [address] [id number] [place] [address] Nov, [facility] [place] [facility] [address] [id number] [place] [address] August, [facility] [place] [facility] [address] [id number] [place] [address] Jul, [facility] [place] [facility] [address] [id number] [place] [address] Jul, [facility] [place] [facility] [address] [id number] [place] [address] Apr, [facility] [address] [id number] [place] [address] Apr, [facility] [place] [facility] [address] [id number] [place] [address] Apr, [facility] [address] [id number] [place] [address] Feb, [facility] [address] [id number] [place] [address] Feb, [facility] [place] [facility] [address] [id number] [place] [address] Dec, [facility] [address] [id number] [place] [address] Nov, [facility] [address] [id number] [place] [address] Oct, [facility] [address] [id number] [place] [address] Oct, [facility] [address] [id number] [place] [address] Oct, [facility] [place] [facility] [address] [id number] [place] [address] Sep, [facility] [place] [facility] [address] [id number] [place] [address] Sep, [facility] [place] [facility] [address] [id number] [place] [address] Sep, [facility] [place] [facility] [address] [id number] [place] [address] August, [facility] [place] [facility] [address] [id number] [place] [address] August, [facility] [place] [facility] [address] [id number] [address] Jul, [facility] [address], [place] [address] Jun, [facility] [address], [place] [address] Jun, [facility] [address], [place] [address] Apr, [facility] [address], [place] [address] Apr, [facility] [address], [place] [address] Mar, [facility] [address] [place] [address] Mar, [facility] [address], [place] [address] Mar, [facility] [address], [place] [address] Mar, [facility] [id number], [place] [address] Jan, IMMUNIZATIONS No Known Immunizations SOCIAL HISTORY Never Assessed REASON FOR VISIT Refill request PLAN OF CARE VITAL SIGNS MEDICATIONS Unknown [...]
--- OUTSIDE RECORDS SUMMARY | 2018-11-17 02:05 | XMS REPORT ---
Author Author RICK STYLES [facility] eClinical[employer] Address Unknown Phone Unavailable Care Team Providers Care Soils Technician Name Role Phone RICK STYLES CP Unavailable Allergies, Adverse Reactions, Alerts Substance Reaction Event Type N.K.D.A. Info Not Available Non Drug Allergy Problems Problem Type Condition Code Onset Dates Condition Status Problem Anxiety F41.9 Active Assessment Hypertension I10 Active Problem Hypertension I10 Active Assessment Anxiety F41.9 Active Medications Medication Code System Code Instructions Start Date End Date Status Dosage Valium NDC [address]-35 5 MG Orally, each fill must last 30 days Twice a day June 28, 2014 1 tablet as needed, must be seen for more refills hydrochlorothiazide-lisinopril NDC 0 20-12.5 mg Once a day October 26, 2013 1 tablet by Oral route Procedures Procedure Coding System Code Date VENIPUNCT, ROUTINE* CPT-4 22588 May 29, 2015 [facility] V[facility]IT ESTABLISHED PATIENT CPT-4 G0467 May 29, 2015 [facility] NOBLL May 29, 2015 Office Visit, Est Pt., Level 3 CPT-4 11093 May 29, 2015 Vital Signs Date/Time: May 29, 2015 Temperature 98.0 F Weight 184.7 lbs Height 65 in BMI 30.73 Index Blood Pressure Diastolic 104 mmHg Blood Pressure Systolic 158 mmHg Cardiac Monitoring Heart Rate 88 bpm Results Name Result Date Reference Range Unit Abnormality Flag ROUTINE VENIPUNCTURE Summary Purpose eClinicalWorks Submission
--- OUTSIDE RECORDS SUMMARY | 2018-11-17 02:05 | XMS REPORT ---
Author Author RICK STYLES [facility] Address [address] [place] [address] Care Team Providers Care Floor Care Specialist Name Role Phone RICK STYLES Unavailable PROBLEMS Type Condition ICD9-CM Code [id number] Code Onset Dates Condition Status SNOMED Code Problem Alcoholism F10.20 Active 5034707 Problem Simple chronic bronchitis J41.0 Active 46414736 Problem Hypertension I10 Active 56833910 Problem Anxiety F41.9 Active 98824852 Problem Cigarette nicotine dependence without complication F17.210 Active 01664390 Problem Abnormal liver function tests R79.89 Active 306996213 ALLERGIES No Information ENCOUNTERS Encounter Location Date Diagnosis [place] [id number] [address] Sep, Anxiety F41.9 [place] [address] [address] Sep, Simple chronic bronchitis J41.0 [place] [address] [place] [id number] [place] [address] Sep, Medicare annual wellness visit, initial Z00.00 ; Anxiety F41.9 ; Hypertension I10 ; Simple chronic bronchitis J41.0 and Routine adult health maintenance Z00.00 [place] [address] [place] [id number] [place] [address] August, [place] [address] [address] August, Dog bite, subsequent encounter W54.0XXD and Alcoholism F10.20 [place] [address] [place] [id number] [place] [address] August, Anxiety F41.9 [place] [address] [address] Jul, Anxiety F41.9 [facility] [address] [place] [id number] [place] [address] Jul, Open bite of right buttock, initial encounter S31.815A ; Bitten by dog, initial encounter W54.0XXA and Encounter for immunization Z23 [place] [address] [address] Jun, Anxiety F41.9 [facility] [address] [address] Jun, Anxiety F41.9 [facility] [address] [address] Jun, [facility] [address] [address] Jun, Anxiety F41.9 [facility] [address] [address] May, Anxiety F41.9 [facility] [address] [address] Apr, Anxiety F41.9 [facility] [address] [address] Apr, Hypertension I10 and Anxiety F41.9 [facility] [address] [address] Apr, Anxiety F41.9 [facility] [address] [place] [id number] [place] [address] Apr, [facility] [address] [address] Oct, Hypertension I10 ; Anxiety F41.9 and Simple chronic bronchitis J41.0 [facility] [address] [address] Sep, [facility] [address] [place] [id number] [place] [address] Sep, Anxiety F41.9 [facility] [address] [address] Jun, Hypertension I10 ; Anxiety F41.9 ; Cigarette nicotine dependence without complication F17.210 and Tinea pedis of both feet B35.3 [place] [address] [address] Jun, [place] [address] [address] Jun, Anxiety F41.9 [place] [address] [address] Feb, Hypertension I10 ; Anxiety F41.9 and Abnormal liver function tests R79.89 [place] [address] [address] Feb, [facility] [address] [address] Feb, [facility] [address] [address] Nov, [facility] [address] [place] [id number] [place] [address] Sep, Hypertension I10 [facility] [address] [address] August, Hypertension I10 ; Anxiety F41.9 and Abnormal liver function tests R79.89 [facility] [address] [address] Jul, Anxiety F41.9 [facility] [address] [address] Jun, [facility] [address] [place] [id number] [place] [address] May, Hypertension I10 and Anxiety F41.9 [facility] [address] [address] Mar, [facility] [address] [place] [id number] [place] [address] Feb, [facility] [id number] [place] [address] Nov, [facility] [address] [place] [id number] [place] [address] Nov, Knee sprain 844.9 [facility] [address] [place] [id number] [place] [address] Nov, Essential hypertension, benign 401.1 and Nondependent alcohol abuse, unspecified drunkenness 305.00 [facility] [address] [place] [id number] [place] [address] Nov, [facility] [address] [place] [id number] [place] [address] Oct, [facility] [id number] [place] [address] Sep, [facility] [address] [place] [id number] [place] [address] Sep, [facility] [address] [address] Jul, [facility] [address] [place] [address] Jul, [facility] [address] [place] [address] Jun, [facility] [address] [place] [id number] [place] [phone] Jun, [facility] [address] [address] May, [facility] [address] [place] [id number] [place] [address], [place] [address] May, 2014 [facility] [place] [facility] [address] [id number] [place] [address] May, 2014 [facility] [place] [facility] [address] [id number] [place] [address] May, 2014 [facility] [place] [facility] [address] [id number] [place] [address] Feb, [facility] [place] [facility] [address] [id number] [place] [address] Feb, [facility] [place] [facility] [address] [id number] [place] [address] Nov, [facility] [place] [facility] [address] [id number] [place] [address] Nov, [facility] [place] [facility] [address] [id number] [place] [address] Nov, [facility] [place] [facility] [address] [id number] [place] [address] Nov, [facility] [place] [facility] [address] [id number] [place] [address] Oct, [facility] [place] [facility] [address] [id number] [place] [address] Oct, [facility] [place] [facility] [address] [id number] [place] [address] Oct, [facility] [place] [facility] [address] [id number] [place] [address] Oct, [facility] [place] [facility] [address] [id number] [place] [address] Oct, [facility] [place] [facility] [address] [id number] [place] [address] Nov, [facility] [place] [facility] [address] [id number] [place] [address] August, [facility] [place] [facility] [address] [id number] [place] [address] Jul, [facility] [address] [id number] [place] [address] Jul, [facility] [address] [id number] [place] [address] Apr, [facility] [address] [id number] [place] [address] Apr, [facility] [address] [id number] [place] [address] Apr, [facility] [address] [id number] [place] [address] Feb, [facility] [address] [id number] [place] [address] Feb, [facility] [address] [id number] [place] [address] Dec, [facility] [address] [id number] [place] [address] Nov, [facility] [address] [id number] [place] [address] Oct, [facility] [address] [id number] [place] [address] Oct, [facility] [address] [id number] [place] [address] Oct, [facility] [place] [facility] [address] [id number] [place] [address] Sep, [facility] [place] [facility] [address] [id number] [place] [address] Sep, [facility] [place] [facility] [address] [id number] [place] [address] Sep, [facility] [place] [facility] [address] [id number] [address] August, [facility] [address] [facility] [id number] [address] August, [facility] [address], [place] [address] Jul, [facility] [address], [place] [address] Jun, [facility] [address], [place] [address] Jun, [facility] [address], [place] [address] Apr, [facility] [address], [place] [address] Apr, [facility] [address], [place] [address] Mar, [facility] [address], [place] [address] Mar, [facility] [address], [place] [address] Mar, [facility] [address], [place] [address] Mar, [facility] [address] [place] [id number] [address] Jan, IMMUNIZATIONS No Known Immunizations SOCIAL HISTORY Never Assessed REASON FOR VISIT Diazepam 3/5 PLAN OF CARE VITAL SIGNS MEDICATIONS Medication [...]
--- OUTSIDE RECORDS SUMMARY | 2018-11-17 02:06 | XMS REPORT | Continuity of Care Document ---
Author Organization Unknown Address Unknown Allergies Active Description Code Type Severity Reaction Onset Reported/Identified Relationship to Patient Clinical Status Yes No Known Drug Allergies [id number] Drug Allergy Unknown N/A 10/28/2017 Medications There is no data. Problems Date Dx Coded Attending Type Code Diagnosis Diagnosed By 02/21/2009 401.9 Combined Systolic And Diastolic Elevation 02/21/2009 782.9 Skin Symptoms 02/21/2009 401.9 Combined Systolic And Diastolic Elevation 02/21/2009 782.9 Skin Symptoms 02/21/2009 401.9 Combined Systolic And Diastolic Elevation 02/21/2009 782.9 Skin Symptoms 02/21/2009 RICK STYLES MD 401.9 COMBINED SYSTOLIC AND DIASTOLIC ELEVATION 02/21/2009 RICK STYLES MD 782.9 Skin Symptoms 02/21/2009 RICK STYLES MD 401.9 COMBINED SYSTOLIC AND DIASTOLIC ELEVATION 02/21/2009 RICK STYLES MD 782.9 Skin Symptoms 02/21/2009 RICK STYLES MD 401.9 COMBINED SYSTOLIC AND DIASTOLIC ELEVATION 02/21/2009 RICK STYLES MD 782.9 Skin Symptoms 02/21/2009 RICK STYLES MD 401.9 COMBINED SYSTOLIC AND DIASTOLIC ELEVATION 02/21/2009 RICK STYLES MD 782.9 Skin Symptoms 04/08/2011 796.2 ELEVATED BLOOD PRESSURE READING WITHOUT DIAGNOSIS OF HYPERTENSION 04/08/2011 796.2 ELEVATED BLOOD PRESSURE READING WITHOUT DIAGNOSIS OF HYPERTENSION 04/08/2011 796.2 ELEVATED BLOOD PRESSURE READING WITHOUT DIAGNOSIS OF HYPERTENSION 04/08/2011 RICK STYLES MD 796.2 ELEVATED BLOOD PRESSURE READING WITHOUT DIAGNOSIS OF HYPERTENSION 04/08/2011 RICK STYLES MD 796.2 ELEVATED BLOOD PRESSURE READING WITHOUT DIAGNOSIS OF HYPERTENSION 04/08/2011 RICK STYLES MD 796.2 ELEVATED BLOOD PRESSURE READING WITHOUT DIAGNOSIS OF HYPERTENSION 04/08/2011 RICK STYLES MD6.2 ELEVATED BLOOD PRESSURE READING WITHOUT DIAGNOSIS OF HYPERTENSION 2011 300.00 ANXIETY STATE UNSPECIFIED 2011 300.00 ANXIETY STATE UNSPECIFIED 2011 300.00 ANXIETY STATE UNSPECIFIED 2011 RICK STYLES MD 300.00 ANXIETY STATE UNSPECIFIED 2011 STEPHANI LING, RICK 300.00 ANXIETY STATE UNSPECIFIED 2011 RICK STYLES MD 300.00 ANXIETY STATE UNSPECIFIED 2011 RICK STYLES MD 300.00 ANXIETY STATE UNSPECIFIED 06/28/2011 465.9 Acute Upper Respiratory Infections Of Unspecified Site 06/28/2011 465.9 Acute Upper Respiratory Infections Of Unspecified Site 06/28/2011 465.9 Acute Upper Respiratory Infections Of Unspecified Site 06/28/2011 RICK STYLES MD 465.9 Acute Upper Respiratory Infections Of Unspecified Site 06/28/2011 RCIK STYLES MD 465.9 Acute Upper Respiratory Infections Of Unspecified Site 06/28/2011 RICK STYLES MD 465.9 Acute Upper Respiratory Infections Of Unspecified Site 06/28/2011 RICK STYLES MD 465.9 Acute Upper Respiratory Infections Of Unspecified Site 10/03/2011 716.90 UNSPECIFIED ARTHROPATHY SITE UNSPECIFIED 10/03/2011 716.90 UNSPECIFIED ARTHROPATHY SITE UNSPECIFIED 10/03/2011 716.90 UNSPECIFIED ARTHROPATHY SITE UNSPECIFIED 10/03/2011 STEPHANI LING, RICK 716.90 UNSPECIFIED ARTHROPATHY SITE UNSPECIFIED 10/03/2011 RICK STYLES MD 716.90 UNSPECIFIED ARTHROPATHY SITE UNSPECIFIED 10/03/2011 RICK STYLES MD 716.90 UNSPECIFIED ARTHROPATHY SITE UNSPECIFIED 10/03/2011 RICK STYLES MD 716.90 UNSPECIFIED ARTHROPATHY SITE UNSPECIFIED 11/05/2011 790.6 ABNORMAL LFT (LIVER FUNCTION TEST) 11/05/2011 790.6 ABNORMAL LFT (LIVER FUNCTION TEST) 11/05/2011 790.6 ABNORMAL LFT (LIVER FUNCTION TEST) 11/05/2011 RICK STYLES MD 790.6 ABNORMAL LFT (LIVER FUNCTION TEST) 11/05/2011 RICK STYLES MD 790.6 ABNORMAL LFT (LIVER FUNCTION TEST) 11/05/2011 RICK STYLES MD 790.6 ABNORMAL LFT (LIVER FUNCTION TEST) 11/05/2011 RICK STYLES MD 790.6 ABNORMAL LFT (LIVER FUNCTION TEST) 10/26/2013 RICK STYLES MD 250.00 DIABETES MELLITUS WITHOUT MENTION OF COMPLICATION TYPE II OR UNSPECIFIED TYPE NOT STATED UNCONTROLLED 10/26/2013 RICK STYLES MD 401.1 BENIGN ESSENTIAL HYPERTENSION 10/26/2013 RICK STYLES MD 250.00 DIABETES MELLITUS WITHOUT MENTION OF COMPLICATION TYPE II OR UNSPECIFIED TYPE NOT STATED UNCONTROLLED 10/26/2013 RICK STYLES MD 401.1 BENIGN ESSENTIAL HYPERTENSION 10/26/2013 RICK STYLES MD 250.00 DIABETES MELLITUS WITHOUT MENTION OF COMPLICATION TYPE II OR UNSPECIFIED TYPE NOT STATED UNCONTROLLED 10/26/2013 RICK STYLES MD 401.1 BENIGN ESSENTIAL HYPERTENSION 10/26/2013 RICK STYLES MD 250.00 DIABETES MELLITUS WITHOUT MENTION OF COMPLICATION TYPE II OR UNSPECIFIED TYPE NOT STATED UNCONTROLLED 10/26/2013 RICK STYLES MD 401.1 BENIGN ESSENTIAL HYPERTENSION 12/06/2013 RICK STYLES MD 011.86 OTHER SPECIFIED PULMONARY TUBERCULOSIS TUBERCLE BACILLI NOT FOUND BY BACTERIOLOGICAL OR HISTOLOGICAL EXAMINATION BUT TUBERCULOSIS CO 12/06/2013 RICK STYLES MD 305.00 ALCOHOL ABUSE UNSPEC 12/06/2013 RICK STYLES MD 011.86 OTHER SPECIFIED PULMONARY TUBERCULOSIS TUBERCLE BACILLI NOT FOUND BY BACTERIOLOGICAL OR HISTOLOGICAL EXAMINATION BUT TUBERCULOSIS CO 12/06/2013 RICK STYLES MD 305.00 ALCOHOL ABUSE UNSPEC 12/06/2013 RICK STYLES MD 011.86 OTHER SPECIFIED PULMONARY TUBERCULOSIS TUBERCLE BACILLI NOT FOUND BY BACTERIOLOGICAL OR HISTOLOGICAL EXAMINATION BUT TUBERCULOSIS CO 12/06/2013 RICK STYLES MD 305.00 ALCOHOL ABUSE UNSPEC 08/05/2014 RICK STYLES MD 729.5 PAIN IN LIMB 10/28/2017 ROSSY ORNELAS DO Ot Z01.818 ENCOUNTER FOR OTHER PREPROCEDURAL EXAMIN 11/04/2017 ROSSY ORNELAS DO Ot D12.8 BENIGN NEOPLASM OF RECTUM 11/04/2017 ROSSY ORNELAS DO Ot F17.210 NICOTINE DEPENDENCE, CIGARETTES, UNCOMPL 11/04/2017 ROSSY ORNELAS DO Ot I10 ESSENTIAL (PRIMARY) HYPERTENSION 11/04/2017 ROSSY ORNELAS DO Ot K57.30 DVRTCLOS OF LG INT W/O PERFORATION OR AB 11/04/2017 ORNELAS DO, ROSSY D Ot Z12.11 ENCOUNTER FOR SCREENING FOR MALIGNANT NE 11/04/2017 ORNELAS DOANATT D Ot Z79.899 OTHER CUSTOMER SOLUTIONS ARCHITECT (CURRENT) DRUG THERAPY 11/06/2017 ORNELAS DOANATT D Ot D12.8 BENIGN NEOPLASM OF RECTUM 11/06/2017 ORNELAS DO ROSSY D Ot F17.210 NICOTINE DEPENDENCE, CIGARETTES, UNCOMPL 11/06/2017 ORNELAS DO ROSSY D Ot I10 ESSENTIAL (PRIMARY) HYPERTENSION 11/06/2017 ORNELAS DO ROSSY D Ot K57.30 DVRTCLOS OF LG INT W/O PERFORATION OR AB 11/06/2017 ORNELAS DO ROSSY D Ot Z12.11 ENCOUNTER FOR SCREENING FOR MALIGNANT NE 11/06/2017 ORNELAS DOROSSY D Ot Z79.899 OTHER LONG-TERM (CURRENT) DRUG THERAPY 11/10/2017 ORNELAS DOANATT D Ot D12.8 BENIGN NEOPLASM OF RECTUM 11/10/2017 ORNELAS DO ROSSY D Ot F17.210 NICOTINE DEPENDENCE, CIGARETTES, UNCOMPL 11/10/2017 ORNELAS DO ROSSY D Ot I10 ESSENTIAL (PRIMARY) HYPERTENSION 11/10/2017 ORNELAS DO ROSSY D Ot K57.30 DVRTCLOS OF LG INT W/O PERFORATION OR AB 11/10/2017 JOHNSON العراقي ROSSY D Ot Z12.11 ENCOUNTER FOR SCREENING FOR MALIGNANT NE 11/10/2017 ORNELAS ROSSY D Ot Z79.899 OTHER LONG-TERM (CURRENT) DRUG THERAPY 03/26/2018 ANTHONY COHEN MD Ot D75.1 SECONDARY POLYCYTHEMIA 03/26/2018 ANTHONY COHEN MD Ot F17.290 NICOTINE DEPENDENCE, OTHER TOBACCO PRODU 03/26/2018 ANTHONY COHEN MD Ot F41.9 ANXIETY DISORDER, UNSPECIFIED 03/26/2018 ANTHONY COHEN MD Ot I10 ESSENTIAL (PRIMARY) HYPERTENSION 03/26/2018 ANTHONY COHEN MD Ot R63.0 ANOREXIA 03/26/2018 ANTHONY COHEN MD Ot R63.4 ABNORMAL WEIGHT LOSS 03/26/2018 ANTHONY COHEN MD Ot Z79.899 OTHER LONG-TERM (CURRENT) DRUG THERAPY 04/25/2018 ANTHONY COHEN MD Ot D75.1 SECONDARY POLYCYTHEMIA 04/25/2018 NATHONY COHEN MD Ot F17.200 NICOTINE DEPENDENCE, UNSPECIFIED, UNCOMP 05/21/2018 ANTHONY COHEN MD Ot D75.1 SECONDARY POLYCYTHEMIA 05/21/2018 ANTHONY COHEN MD Ot F17.290 NICOTINE DEPENDENCE, OTHER TOBACCO PRODU 05/21/2018 ANTHONY COHEN MD Ot F41.9 ANXIETY DISORDER, UNSPECIFIED 05/21/2018 ANTHONY COHEN MD Ot I10 ESSENTIAL (PRIMARY) HYPERTENSION 05/21/2018 ANTHONY COHEN MD Ot R63.0 ANOREXIA 05/21/2018 ANTHONY COHEN MD Ot R63.4 ABNORMAL WEIGHT LOSS 05/21/2018 ANTHONY COHEN MD Ot Z79.899 OTHER CUSTOMER SOLUTIONS ARCHITECT (CURRENT) DRUG THERAPY 06/01/2018 ANTHONY COHEN MD Ot D75.1 SECONDARY POLYCYTHEMIA 06/01/2018 ANTHONY COHEN MD Ot F17.290 NICOTINE DEPENDENCE, OTHER TOBACCO PRODU 06/01/2018 ANTHONY COHEN MD Ot F41.9 ANXIETY DISORDER, UNSPECIFIED 06/01/2018 ANTHONY COHEN MD Ot I10 ESSENTIAL (PRIMARY) HYPERTENSION 06/01/2018 ANTHONY COHEN MD Ot R63.0 ANOREXIA 06/01/2018 ANTHONY COHEN MD Ot R63.4 ABNORMAL WEIGHT LOSS 06/01/2018 ANTHONY COHEN MD Ot Z79.899 OTHER CUSTOMER SOLUTIONS ARCHITECT (CURRENT) DRUG THERAPY 06/16/2018 ANTHONY COHEN MD Ot D75.1 SECONDARY POLYCYTHEMIA 06/16/2018 ANTHONY COHEN MD Ot F17.290 NICOTINE DEPENDENCE, OTHER TOBACCO PRODU 06/16/2018 ANTHONY COHEN MD Ot F41.9 ANXIETY DISORDER, UNSPECIFIED 06/16/2018 ANTHONY COHEN MD Ot I10 ESSENTIAL (PRIMARY) HYPERTENSION 06/16/2018 ANTHONY COHEN MD Ot R63.0 ANOREXIA 06/16/2018 ANTHONY COHEN MD Ot R63.4 ABNORMAL WEIGHT LOSS 06/16/2018 ANTHONY COHEN MD Ot Z79.899 OTHER LONG-TERM (CURRENT) DRUG THERAPY 06/17/2018 ANTHONY COHEN MD Ot D75.1 SECONDARY POLYCYTHEMIA 06/17/2018 ANTHONY COHEN MD Ot F17.290 NICOTINE DEPENDENCE, OTHER TOBACCO PRODU 06/17/2018 ANTHONY COHEN MD Ot F41.9 ANXIETY DISORDER, UNSPECIFIED 06/17/2018 ANTHONY COHEN MD Ot I10 ESSENTIAL (PRIMARY) HYPERTENSION 06/17/2018 ANTHONY COHEN MD, Ot R63.0 ANOREXIA 06/17/2018 ANTHONY COHEN MD, Ot R63.4 ABNORMAL WEIGHT LOSS 06/17/2018 ANTHONY COHEN MD, Ot Z79.899 OTHER LONG-TERM (CURRENT) DRUG THERAPY Procedures Code Description [place] [address] URINE DRUG SCREEN (IN-HOUSE) 08/10/2012 25936 ROUTINE VENIPUNCTURE 10/26/2013 1696679 GFR CALC (RESULT ONLY) 10/27/2013 99727 CMP 10/27/2013 44773 ROUTINE VENIPUNCTURE 12/06/2013 35268 LIVER PANEL (LFT) 12/06/2013 60840 EAR LAVAGE 06/06/2014 Results Test Result Range Hepatic Function Panel (7) - 03/26/16 14:59 Protein, Total, Serum 7.1 g/dL 6.0-8.5 Albumin, Serum 4.4 g/dL 3.5-5.5 Bilirubin, Total 0.2 mg/dL 0.0-1.2 Alkaline Phosphatase, S 69 IU/L 39-117 AST (SGOT) 30 IU/L 0-40 ALT (SGPT) 24 IU/L 0-44 Bilirubin, Direct 0.08 mg/dL 0.00-0.40 CMP - 05/20/17 14:57 GLUCOSE 106 mg/dL 65-99 UREA NITROGEN (BUN) 11 mg/dL 7-25 CREATININE 0.99 mg/dL 0.70-1.33 eGFR NON-AFR. KAZAKH 83 mL/min/1.73m2 > OR=60 eGFR 96 mL/min/1.73m2 > OR=60 BUN/CREATININE RATIO NOT APPLICABLE (calc) 6-22 SODIUM 141 mmol/L 135-146 POTASSIUM 4.0 mmol/L 3.5-5.3 CHLORIDE 105 mmol/L 98-110 CARBON DIOXIDE 26 mmol/L 20-31 CALCIUM 10.0 mg/dL 8.6-10.3 PROTEIN, TOTAL 7.7 g/dL 6.1-8.1 ALBUMIN 5.0 g/dL 3.6-5.1 GLOBULIN 2.7 g/dL (calc) 1.9-3.7 ALBUMIN/GLOBULIN RATIO 1.9 (calc) 1.0-2.5 BILIRUBIN, TOTAL 0.6 mg/dL 0.2-1.2 ALKALINE PHOSPHATASE 60 U/L 40-115 AST 42 U/L 10-35 ALT 41 U/L 9-46 CRP - 02/12/18 11:05 C-REACTIVE PROTEIN 6.9 mg/L <8.0 TSH - 02/12/18 11:05 TSH 3.56 mIU/L 0.40-4.50 Encounters ACCT No. Visit Date/Time Discharge Status Pt. Type Provider Facility Loc./Unit Complaint [id number] 08/05/2014 14:57:00 08/05/2014 23:59:59 CLS Outpatient RICK STYLES MD [id number] 06/02/2014 14:27:00 06/02/2014 23:59:59 CLS Outpatient RICK STYLES MD [id number] 12/06/2013 14:42:00 12/06/2013 23:59:59 CLS Outpatient RICK STYLES MD [id number] 10/26/2013 15:55:00 10/26/2013 23:59:59 CLS Outpatient RICK STYLES MD [id number] 11/05/2011 13:56:00 11/05/2011 23:59:59 CLS Outpatient [id number] 11/05/2011 13:56:00 11/05/2011 23:59:59 CLS Outpatient [id number] 08/10/2012 13:06:00 Document Registration [id number] 06/17/2018 00:10:00 06/17/2018 23:59:59 CLS Preadmit ANTHONY COHEN MD [facility] ONC [id number] 2018 10:22:00 06/16/2018 00:01:00 DIS Outpatient ANTHONY COHEN MD [facility] ONC [id number] 04/02/2018 08:09:00 04/02/2018 23:59:59 CLS Outpatient ANTHONY COHEN MD [facility] RAD SMOKER [id number] 11/04/2017 08:51:00 11/04/2017 11:35:00 DIS Outpatient ROSSY ORNELAS DO [facility] ENDO SCREENING [id number] 10/28/2017 05:35:00 10/28/2017 10:07:00 DIS Outpatient ROSSY ORNELAS DO [facility] PREOP COLONOSCOPY [id number] 12/06/2013 08:35:00 12/06/2013 23:59:59 CLS Outpatient [id number] 03/27/2016 10:05:00 Document Registration [id number] 07/03/2018 11:20:00 07/03/2018 23:59:59 CLS Outpatient STEPHANI LING, [facility] [id number] 02/12/2018 10:40:00 Document Registration [id number] 05/20/2017 14:20:00 Document Registration
== END 2018-11-16 21:05 | disposition home or self-care (01) ==
LOC: EDUNIT# 20:18 → ER 20:20
DX: S51.812A Laceration without foreign body of left forearm, initial encounter (principal); I10 Essential (primary) hypertension; F41.9 Anxiety disorder, unspecified; F17.290 Nicotine dependence, other tobacco product, uncomplicated; W25.XXXA Contact with sharp glass, initial encounter; Y92.009 Unspecified place in unspecified non-institutional (private) residence as the place of occurrence of the external cause

== ENCOUNTER 2020-09-21 11:57 | Emergency (ER) | payer MEDICARE, MEDICAID ==
[~2020-09-21] VITALS: Ht 167 cm; Wt 78.4 kg
[~2020-09-21 11:57] MED LIST changes: +CEPH-507 PO; -LISI10TA2 PO; +LISI10TA25 PO
[2020-09-21] MEDS ORDERED: NS IV 1000 ML 1,000 ML IV SCH (12:15)
[2020-09-21] MEDS ORDERED: KETOROLAC 30 MG/ML VIAL IVP ONE (12:15)
--- NOTE | 2020-09-21 12:15 | ED EENT ---
History of Present Illness General Chief Complaint: Oral/Throat Problems Stated Complaint: FOOD BOLUS Nursing Triage Note: pt presents to ed with complaints of sore throat x 2-3 months. reports he has been on antibiotics for a tonsilar abcess but reports it is not getting better. Source: patient Exam Limitations: no limitations (RALPH BONILLA APRN) History of Present Illness Date Seen by Provider: September 21, 2020 Time Seen by Provider: 12:14 Initial Comments To ER with reports of sore throat right-sided for 2 to 3 months. He has seen [facility] [place] care 2-3 times for this and has been on Augmentin and doxycycline and feels that the only thing that really helps is salt water gargles. Denies fevers. Former smoker of cigars. Timing/Duration: gradual Severity: moderate Location: throat Prearrival Treatment: no prearrival treatment Associated Symptoms: denies symptoms (RALPH BONILLA APRN) Allergies and Home Medications Allergies Coded Allergies: No Known Drug Allergies (Unverified , 10/28/17) Home Medications Cephalexin 500 Mg Capsule, 500 MG PO TID Prescribed by: RALPH BONILLA on 11/16/182052 Diazepam 5 Mg Tablet, 5 MG PO BID, (Reported) Lisinopril 10 Mg Tablet, 10 MG PO DAILY, (Reported) Patient Home Medication List Home Medication List Reviewed: Yes (RALPH BONILLA APRN) Review of Systems Review of Systems Constitutional: see HPI Eyes: No Symptoms Reported Ears: No Symptoms Reported Nose: no symptoms reported Mouth: no symptoms reported Throat: see HPI, pain Respiratory: no symptoms reported Cardiovascular: no symptoms reported Musculoskeletal: no symptoms reported Skin: no symptoms reported Neurological: No Symptoms Reported Hematologic/Lymphatic: No Symptoms Reported Immunological/Allergic: no symptoms reported (RALPH BONILLA APRN) Past Eqbvmaj-Lzijoy-Eglluz Hx Patient Social History Alcohol Use: Occasionally Uses Smoking Status: Former Smoker Type Used: Cigars Recent Infectious Disease Expo: No Recent Hopitalizations: No (RALPH BONILLA APRN) Immunizations Up To Date Tetanus Booster (TDap): Less than 5yrs (RALPH BONILLA APRN) Seasonal Allergies Seasonal Allergies: No (RALPH BONILLA APRN) Past Medical History Surgeries: Yes (FX JAW REPAIR) Orthopedic Respiratory: No Cardiac: Yes Hypertension Neurological: No Reproductive Disorders: No Sexually Transmitted Disease: No HIV/AIDS: No Genitourinary: No Gastrointestinal: No Musculoskeletal: No Endocrine: No HEENT: No Loss of Vision: Bilateral Hearing Impairment: Denies Cancer: No Psychosocial: Yes Anxiety Integumentary: No Blood Disorders: No Adverse Reaction/Blood Tranf: No (N/A) (RALPH BONILLA APRN) Physical Exam Vital Signs Vital Signs - First Documented 09/21/20 12:07 Temp 35.7 Pulse 116 Resp 18 B/P (MAP) 162/104 (123) Pulse Ox 99 (FRED MERRITT MD) Height, Weight, BMI Height: 5'5.00" Weight: 175lbs. 0.0oz. 79.978304og; 28.00 BMI Method:Stated General Appearance: WD/WN, no apparent distress Eyes: bilateral eye normal inspection, bilateral eye PERRL, bilateral eye EOMI Ears: bilateral ear auricle normal, bilateral ear canal normal, bilateral ear TM normal Mouth/Throat: No mandibular swelling; tonsillar swelling (Tonsillar swelling on the right and mild peritonsillar swelling on the right. No uvular deviation.) Neck: non-tender, full range of motion, lymphadenopathy (R) Cardiovascular: regular rate, rhythm, no murmur Respiratory: no respiratory distress, no accessory muscle use Neurologic/Psychiatric: alert, normal mood/affect, oriented x 3 Skin: normal color (RALPH BONILLA APRN) Progress/Results/Core Measures Results/Orders Lab Results Laboratory Tests Test 09/21/20 12:20 Range/Units White Blood Count 11.7 H 4.3-11.0 10^3/uL Red Blood Count 5.20 4.30-5.52 10^6/uL Hemoglobin 16.4 13.3-17.7 g/dL Hematocrit 48 40-54 % Mean Corpuscular Volume 92 80-99 fL Mean Corpuscular Hemoglobin 32 25-34 pg Mean Corpuscular Hemoglobin Concent 34 32-36 g/dL Red Cell Distribution Width 12.4 10.0-14.5 % Platelet Count 303 130-400 10^3/uL Mean Platelet Volume 9.1 9.0-12.2 fL Immature Granulocyte % (Auto) 0 % Neutrophils (%) (Auto) 74 42-75 % Lymphocytes (%) (Auto) 18 12-44 % Monocytes (%) (Auto) 7 0-12 % Eosinophils (%) (Auto) 1 0-10 % Basophils (%) (Auto) 0 0-10 % Neutrophils # (Auto) 8.7 H 1.8-7.8 10^3/uL Lymphocytes # (Auto) 2.1 1.0-4.0 10^3/uL Monocytes # (Auto) 0.8 0.0-1.0 10^3/uL Eosinophils # (Auto) 0.1 0.0-0.3 10^3/uL Basophils # (Auto) 0.1 0.0-0.1 10^3/uL Immature Granulocyte # (Auto) 0.0 0.0-0.1 10^3/uL Sodium Level 140 135-145 MMOL/L Potassium Level 3.5 L 3.6-5.0 MMOL/L Chloride Level 103 98-107 MMOL/L Carbon Dioxide Level 24 21-32 MMOL/L Anion Gap 13 5-14 MMOL/L Blood Urea Nitrogen 9 7-18 MG/DL Creatinine 0.90 0.60-1.30 MG/DL Estimat Glomerular Filtration Rate > 60 BUN/Creatinine Ratio 10 Glucose Level 106 H 70-105 MG/DL Calcium Level 9.9 8.5-10.1 MG/DL Corrected Calcium 9.7 8.5-10.1 MG/DL Total Bilirubin 0.7 0.1-1.0 MG/DL Aspartate Amino Transf (AST/SGOT) 158 H 5-34 U/L Alanine Aminotransferase (ALT/SGPT) 65 H 0-55 U/L Alkaline Phosphatase 80 40-136 U/L C-Reactive Protein High Sensitivity 1.60 H 0.00-0.50 MG/DL Total Protein 8.2 6.4-8.2 GM/DL Albumin 4.3 3.2-4.5 GM/DL (FRED MERRITT MD) Blood Pressure Mean: 123 Progress Progress Note : Progress Note I was personally present in the emergency department during the care of this patient but did not directly participate in this patient's care. (FRED MERRITT MD) Departure Communication (Admissions) [id number] spoke with Dr. Jimenez[facility] clinic, they would like me to fax the CT report and lab work to the [facility] where he is at currently. We will have him call me directly here in just a bit. (RALPH BONILLA APRN) Impression Primary Impression: Tonsillar mass Disposition: 01 HOME, SELF-CARE Condition: Stable Departure-Patient Inst. Decision time for Depature: 13:44 (RALPH BONILLA APRN) Referrals: RICK STYLES MD (PCP/Family) Primary Care Physician Patient Instructions: NO INSTRUCTIONS GIVEN Add. Discharge Instructions: All discharge instructions reviewed with patient and/or family. Voiced understanding. Copy Copies To 1: TONY JIMENEZ MD; RICK STYLES MD, PETER J APRN September 21, 2020 12:15 FRED MERRITT MD September 22, 2020 06:25
[2020-09-21 12:25] LABS: BASOPHILS # (AUTO) 0.1 10^3/uL (0.0-0.1); BASOPHILS % (AUTO) 0 % (0-10); EOSINOPHILS # (AUTO) 0.1 10^3/uL (0.0-0.3); EOSINOPHILS % (AUTO) 1 % (0-10); HEMATOCRIT 48 % (40-54); HEMOGLOBIN 16.4 g/dL (13.3-17.7); LYMPHOCYTES # (AUTO) 2.1 10^3/uL (1.0-4.0); LYMPHOCYTES % (AUTO) 18 % (12-44); MEAN CORPUSCULAR HEMOGLOBIN 32 pg (25-34); MEAN CORPUSCULAR HGB CONC 34 g/dL (32-36); MEAN CORPUSCULAR VOLUME 92 fL (80-99); MEAN PLATELET VOLUME 9.1 fL (9.0-12.2); MONOCYTES # (AUTO) 0.8 10^3/uL (0.0-1.0); MONOCYTES % (AUTO) 7 % (0-12); NEUTROPHILS # (AUTO) 8.7 10^3/uL (1.8-7.8); NEUTROPHILS % (AUTO) 74 % (42-75); PLATELET COUNT 303 10^3/uL (130-400); WHITE BLOOD COUNT 11.7 10^3/uL (4.3-11.0)
[2020-09-21 12:36] LABS: ALBUMIN 4.3 GM/DL (3.2-4.5); CHLORIDE 103 MMOL/L (98-107); POTASSIUM 3.5 MMOL/L (3.6-5.0); SODIUM 140 MMOL/L (135-145)
[2020-09-21 12:37] LABS: CALCIUM 9.9 MG/DL (8.5-10.1)
[2020-09-21 12:39] LABS: GLUCOSE 106 MG/DL (70-105); TOTAL PROTEIN 8.2 GM/DL (6.4-8.2)
[2020-09-21 12:40] LABS: CARBON DIOXIDE 24 MMOL/L (21-32)
[2020-09-21 12:41] LABS: BILIRUBIN,TOTAL 0.7 MG/DL (0.1-1.0)
[2020-09-21 12:42] LABS: ALKALINE PHOSPHATASE 80 U/L (40-136); GFR ESTIMATED > 60
[2020-09-21 12:43] LABS: BUN/CREATININE RATIO 10
[2020-09-21 12:45] LABS: ALANINE AMINOTRANSFERASE 65 U/L (0-55)
[2020-09-21] MEDS ORDERED: NS 100 ML (IVPB) BAG IV ONE (12:45)
[2020-09-21] MEDS ORDERED: HOLD METFORMIN - RECEIVED CONTRAST 20 ML VIAL IV SCH (12:45)
[2020-09-21] MEDS ORDERED: IOHEXOL 350 MG/ML 100 ML (OMNIPAQUE 350) VIAL IV ONE (12:45)
[2020-09-21] MEDS ORDERED: CATHETER FLUSH 10 ML SYR IV PRN (12:45)
--- NOTE | 2020-09-21 13:26 | Diagnostic Imaging Report ---
CLINICAL INDICATION: Patient with sore throat x2-3 months. Patient has use antibiotics. EXAM: Axial CT scan of the neck soft tissue performed with 75 mL of Omnipaque 350 IV contrast. Sagittal and coronal reformatted images are created. Auto Exposure Controls were utilized during the CT exam to meet ALARA standards for radiation dose reduction. COMPARISON: None. FINDINGS: There is a lobulated mass centered in the right palatine tonsillar region which encroaches upon the airway with severe narrowing of the nasopharynx region and moderate narrowing of the oropharynx. This mass measures grossly 2.7 cm x 3.5 cm x 3.9 cm (AP x Trans x CC). There is thickening of the epiglottis. This mass extends to the right pharyngoepiglottic and right aryepiglottic fold region. There is also thickening of the left aryepiglottic fold region. This mass minimally crosses midline posteriorly. This mass causes mass effect upon the right parapharyngeal fat and slightly displaces the carotid space posteriorly. There is motion artifact possibly from swallowing in the larynx which obscures the area. There is dental streak artifact which also significantly obscures this mass. There is prominence of the posterior nasopharynx. There is an 11 mm x 14 mm lymph node in the right 2A region. There is no other significant lymph nodes seen. Salivary gland and thyroid gland is unremarkable. Mild emphysematous disease seen. There are hypertrophic spurs involving the cervical spine. Limited visualization intracranial structures are grossly unremarkable. Orbits and globes show no significant abnormality. The visualized paranasal sinuses and mastoid air cells are clear. IMPRESSION: 1: There is a lobulated mass centered in the right palatine tonsillar region concerning for neoplasm. There is encroachment upon the supraglottic larynx and hypopharynx region. There is thickening of the supraglottic laryngeal soft tissue as well. There is associated moderate narrowing of the oropharyngeal aerodigestive tract. There is dental streak artifact and motion artifact which greatly limits evaluation of the mass. If necessary, MRI of the neck with without contrast would better evaluate. 2: There is a 11 mm x 14 mm left on the right level 2A region. There is no other significant lymph node seen. 3: Emphysematous disease. Dictated by: Dictated on workstation # [id number]
[2020-09-21 14:46] VITALS: BP 150/97
== END 2020-09-21 14:46 | disposition home or self-care (01) ==
LOC: EDUNIT# 11:57 → ER 11:59
DX: J35.9 Chronic disease of tonsils and adenoids, unspecified (principal); R59.0 Localized enlarged lymph nodes; I10 Essential (primary) hypertension; Z87.891 Personal history of nicotine dependence
CPT/HCPCS: 36415; 70491; 80053; 85025; 86141; 96374

== ENCOUNTER 2020-09-26 11:37 | Emergency (ER) | payer MEDICARE, MEDICAID ==
[~2020-09-26] VITALS: Ht 165 cm; Wt 81.8 kg
[2020-09-26 12:03] VITALS: BP 148/108
[2020-09-26] MEDS ORDERED: PRED30SOLN PO (12:19)
[2020-09-26] MEDS ORDERED: OXYC5SOL19 PO (12:19)
--- NOTE | 2020-09-26 12:20 | ED EENT ---
History of Present Illness General Chief Complaint: Oral/Throat Problems Stated Complaint: THROAT ISSUES Source: patient Exam Limitations: no limitations History of Present Illness Date Seen by Provider: Sep 26, 2020 Time Seen by Provider: 12:15 Initial Comments Right ear and throat pain. Recently dx with right tonsillar mass. To see Dr posada tomorrow at 1030 am. Timing/Duration: this morning Severity: moderate Prearrival Treatment: no prearrival treatment Associated Symptoms: denies symptoms Allergies and Home Medications Allergies Coded Allergies: No Known Drug Allergies (Unverified , 10/28/17) Home Medications Cephalexin 500 Mg Capsule, 500 MG PO TID Prescribed by: RALPH BONILLA on 11/16/182052 Diazepam 5 Mg Tablet, 5 MG PO BID, (Reported) Lisinopril 10 Mg Tablet, 10 MG PO DAILY, (Reported) Oxycodone HCl 5 Mg/5 Ml Solution, 5 MG PO Q4H Prescribed by: RALPH BONILLA on 09/26/20 122 Prednisolone 15 Mg/5 Ml Solution, 45 MG PO DAILY Prescribed by: RALPH BONILLA on 09/26/20 1219 Patient Home Medication List Home Medication List Reviewed: Yes Review of Systems Review of Systems Constitutional: see HPI Eyes: No Symptoms Reported Ears: No Symptoms Reported Nose: no symptoms reported Mouth: no symptoms reported Throat: see HPI Respiratory: no symptoms reported Cardiovascular: no symptoms reported Musculoskeletal: no symptoms reported Skin: no symptoms reported Neurological: No Symptoms Reported Hematologic/Lymphatic: No Symptoms Reported Immunological/Allergic: no symptoms reported Past Ndvxory-Jzsdsh-Snwwxc Hx Patient Social History Type Used: Cigars Recent Hopitalizations: No Immunizations Up To Date Tetanus Booster (TDap): Less than 5yrs Seasonal Allergies Seasonal Allergies: No Past Medical History Surgeries: Yes (FX JAW REPAIR) Orthopedic Respiratory: No Cardiac: Yes Hypertension Neurological: No Reproductive Disorders: No Sexually Transmitted Disease: No HIV/AIDS: No Genitourinary: No Gastrointestinal: No Musculoskeletal: No Endocrine: No HEENT: No Loss of Vision: Bilateral Hearing Impairment: Denies Cancer: No Psychosocial: Yes Anxiety Integumentary: No Blood Disorders: No Adverse Reaction/Blood Tranf: No (N/A) Physical Exam Vital Signs Vital Signs - First Documented 09/26/20 12:03 Temp 36.8 Pulse 120 Resp 18 B/P (MAP) 148/108 (121) Pulse Ox 97 O2 Delivery Room Air Height, Weight, BMI Height: 5'5.00" Weight: 175lbs. 0.0oz. 79.872934mz; 28.00 BMI Method:Stated General Appearance: WD/WN, no apparent distress Eyes: bilateral eye normal inspection, bilateral eye PERRL, bilateral eye EOMI Ears: right ear other (Ear effusion right ); bilateral ear auricle normal, bilateral ear canal normal, bilateral ear TM normal Mouth/Throat: tonsillar swelling (right ) Neck: non-tender, full range of motion, lymphadenopathy (R) Respiratory: no respiratory distress, no accessory muscle use Gastrointestinal: normal bowel sounds, non tender Neurologic/Psychiatric: alert, normal mood/affect, oriented x 3 Skin: normal color, warm/dry Progress/Results/Core Measures Results/Orders Vital Signs/I&O 09/26/20 12:03 Temp 36.8 Pulse 120 Resp 18 B/P (MAP) 148/108 (121) Pulse Ox 97 O2 Delivery Room Air Departure Impression Primary Impression: Tonsillar mass Disposition: HOME, SELF-CARE Condition: Stable Departure-Patient Inst. Decision time for Depature: 12:17 Referrals: RICK STYLES MD (PCP/Family) Primary Care Physician Patient Instructions: NO INSTRUCTIONS GIVEN Add. Discharge Instructions: 1. Return to ER for any concerns. All discharge instructions reviewed with patient and/or family. Voiced understanding. Scripts Prednisolone (Prednisolone) 15 Mg/5 Ml Solution 45 MG PO DAILY, #45 EA Prov: RALPH BONILLA APRN 09/26/20 Oxycodone HCl (Oxycodone HCl) 5 Mg/5 Ml Solution 5 MG PO Q4H for 7 Days, #120 ML Prov: RALPH BONILLA APRN 09/26/20 Copy Copies To 1: TOYN POSADA MD, PETER J APRN Sep 26, 2020 12:20
[2020-09-27] MEDS ORDERED: ATOR20TA66 PO (12:34)
[2020-09-29] MEDS ORDERED: viscous lidocaine PO (12:48)
== END 2020-09-26 12:35 | disposition home or self-care (01) ==
LOC: EDUNIT# 11:37 → ER 11:39
DX: J35.9 Chronic disease of tonsils and adenoids, unspecified (principal); R59.0 Localized enlarged lymph nodes; H93.8X1 Other specified disorders of right ear; I10 Essential (primary) hypertension; Z79.899 Other long term (current) drug therapy
CPT/HCPCS: 99282

== ENCOUNTER 2020-09-28 05:34 | Outpatient (RCR) | payer MEDICARE, MEDICAID ==
[~2020-09-28] VITALS: Ht 165.1 cm; Wt 78.6 kg
[~2020-09-28 05:34] MED LIST changes: +ATOR20TA66 PO; +OXYC5SOL19 PO; +PRED30SOLN PO
[2020-09-28] MEDS ORDERED: LISI1TAB29 PO (08:37)
[2020-09-28] MEDS ORDERED: AMLO-250 PO (08:37)
[2020-09-29] MEDS ORDERED: viscous lidocaine PO (12:48)
== END 2020-09-28 08:41 | disposition home or self-care (01) ==
LOC: PREOP 05:34
PROVIDERS: ATTEND Otolaryngology Otolaryngology/Facial Plastic Surgery
DX: Z01.812 Encounter for preprocedural laboratory examination (principal); J35.8 Other chronic diseases of tonsils and adenoids; Z20.822 Contact with and (suspected) exposure to COVID-19
CPT/HCPCS: 87635

== ENCOUNTER → 2020-09-29 | Day surgery (SDC) | payer MEDICARE, MEDICAID ==
[~2020-09-29] VITALS: Ht 165.1 cm; Wt 78.6 kg
[2020-09-29] VITALS (13 sets, daily range): BP systolic 141–176; BP diastolic 97–121
[~2020-09-29] MED LIST changes: +ACETAMINOPHEN 325 MG TABLET PO PRN; +AMLO-250 PO; +ESMOLOL 100 MG/10 ML (BREVIBLOC) VIAL ONE; +GLYCOPYRROLATE 0.2 MG/ML (ROBINUL) 2 ML VIAL ONE; +HYDROcodone/APAP 7.5MG-325 MG/15 ML (LORTAB) UDC PO PRN; +HYDROmorphone 2 MG/ML VIAL (DILAUDID) IV ONE; +HYDROmorphone 2 MG/ML VIAL (DILAUDID) ONE; +LABETALOL HCL 20 MG/4 ML VIAL IV ONE; +LABETALOL HCL 20 MG/4 ML VIAL ONE; +LACTATED RINGERS 1,000 ML IV PRN; +LIDOCAINE 2% VISCOUS 15 ML UDC PO PRN; +LIDOCAINE/EPI 1%-1:100,000 (XYLOCAINE) 20ML ONE; +LISI1TAB29 PO; +MIDAZOLAM 2 MG/2 ML (VERSED) VIAL ONE; +NEOSTIGMINE 3 MG/3 ML VIAL ONE; +ONDANSETRON 4 MG/2 ML (SDV) Z0FRAN IVP PRN; +ONDANSETRON 4 MG/2 ML (SDV) Z0FRAN ONE; +PROMETHAZINE INJ 25 MG/ML (PHENERGAN) AMP IV PRN; +ROCURONIUM 10 MG/ML 5 ML SYRINGE IV ONE; +SEVOFLURANE (ULTANE) 15 ML INHAL SOLN ONE; +SUGAMMADEX 500 MG/5 ML VIAL (BRIDION) IV ONE; +fentaNYL INJ 100 MCG/2 ML AMP ONE; +meTOprolol 5 MG/5 ML (LOPRESSOR) VIAL ONE; +proPOfol 200 MG/20 ML (DIPRIVAN) VIAL IV ONE; +viscous lidocaine PO
--- NOTE | 2020-09-29 08:26 | Progress Note-Pre Operative ---
Pre-Operative Progress Note H&P Reviewed The H&P was reviewed, patient examined and no changes noted. Date Seen by Provider: Sep 29, 2020 Time Seen by Provider: 08:30 Date H&P Reviewed: Sep 29, 2020 Time H&P Reviewed: 08:30 Pre-Operative Diagnosis: Right Tonsil Mass, Nasopharyngeal Mass TONY SCHAFER MD Sep 29, 2020 08:26
--- NOTE | 2020-09-29 10:06 | Progress Note-Post Operative ---
Post-Operative Progess Note Surgeon (s)/Operator Control Room (s) Surgeon TONY SCHAFER MD Operator Control Room n/a Pre-Operative Diagnosis Right Tonsil Mass, Nasopharyngeal Mass Post-Operative Diagnosis same Post-Op Procedure Note Date of Procedure: Sep 29, 2020 Name of Procedure Performed: Direct Laryngsocpy with Biopsy of Right Tonsil/Pharyngeal Mass Description & Findings Description and Findings: n/a Anesthesia Type get Estimated Blood Loss minimal Packing none. Specimen(s) collected/removed right tonsil biopsy/phryngeal wal lmass to pathology for frozen TONY SCHAFER MD Sep 29, 2020 10:06
--- NOTE | 2020-10-05 11:35 | Anesthesia-General Post-Op ---
General Significant Intra-Op Events Notes pos op completed 6-4 at 1130 Patient Condition Mental Status/LOC: Same as Preop Cardiovascular: Satisfactory Nausea/Vomiting: Absent Respiratory: Satisfactory Pain: Controlled Complications: Absent Post Op Complications Complications None Follow Up Care/Instructions Patient Instructions None needed. Anesthesia/Patient Condition Patient Condition Patient is doing well, no complaints, stable vital signs, no apparent adverse anesthesia problems. No complications reported per nursing. D/C home per [facility] Criteria: Yes DASH [employer] Oct 05, 2020 11:35
== END ==
LOC: SDC 06:44
PROVIDERS: ATTEND Otolaryngology Otolaryngology/Facial Plastic Surgery
DX: C09.9 Malignant neoplasm of tonsil, unspecified (principal); J39.2 Other diseases of pharynx; I10 Essential (primary) hypertension; F17.210 Nicotine dependence, cigarettes, uncomplicated; Z79.2 Long term (current) use of antibiotics
CPT/HCPCS: 87081

== ENCOUNTER → 2020-10-10 | Outpatient (CLI) | payer MEDICARE, MEDICAID ==
[~2020-10-10] MED LIST changes: -ACETAMINOPHEN 325 MG TABLET PO PRN; +CATHETER FLUSH 10 ML SYR IV PRN; -ESMOLOL 100 MG/10 ML (BREVIBLOC) VIAL ONE; -GLYCOPYRROLATE 0.2 MG/ML (ROBINUL) 2 ML VIAL ONE; +HOLD METFORMIN - RECEIVED CONTRAST 20 ML VIAL IV SCH; -HYDROcodone/APAP 7.5MG-325 MG/15 ML (LORTAB) UDC PO PRN; -HYDROmorphone 2 MG/ML VIAL (DILAUDID) IV ONE; -HYDROmorphone 2 MG/ML VIAL (DILAUDID) ONE; +IOHEXOL 350 MG/ML 100 ML (OMNIPAQUE 350) VIAL IV ONE; -LABETALOL HCL 20 MG/4 ML VIAL IV ONE; -LABETALOL HCL 20 MG/4 ML VIAL ONE; -LACTATED RINGERS 1,000 ML IV PRN; -LIDOCAINE 2% VISCOUS 15 ML UDC PO PRN; -LIDOCAINE/EPI 1%-1:100,000 (XYLOCAINE) 20ML ONE; -MIDAZOLAM 2 MG/2 ML (VERSED) VIAL ONE; -NEOSTIGMINE 3 MG/3 ML VIAL ONE; +NS 100 ML (IVPB) BAG IV ONE; -ONDANSETRON 4 MG/2 ML (SDV) Z0FRAN IVP PRN; -ONDANSETRON 4 MG/2 ML (SDV) Z0FRAN ONE; -PROMETHAZINE INJ 25 MG/ML (PHENERGAN) AMP IV PRN; -ROCURONIUM 10 MG/ML 5 ML SYRINGE IV ONE; -SEVOFLURANE (ULTANE) 15 ML INHAL SOLN ONE; -SUGAMMADEX 500 MG/5 ML VIAL (BRIDION) IV ONE; -fentaNYL INJ 100 MCG/2 ML AMP ONE; -meTOprolol 5 MG/5 ML (LOPRESSOR) VIAL ONE; -proPOfol 200 MG/20 ML (DIPRIVAN) VIAL IV ONE
--- NOTE | 2020-10-10 09:53 | Diagnostic Imaging Report ---
PROCEDURE: CT chest with contrast only. TECHNIQUE: Multiple contiguous axial images were obtained through the chest after administration of intravenous contrast. Auto Exposure Controls were utilized during the CT exam to meet ALARA standards for radiation dose reduction. DATE: October 10, 2020. COMPARISON: CT chest April 02, 2018. INDICATION: 60-year-old male, history of squamous cell carcinoma of the right tonsil. Evaluation for metastatic disease to the chest. FINDINGS: There is no identified pulmonary nodule. There is no lung mass. There is no otherwise noted focal airspace consolidation. The central airways are patent. There is no pneumothorax. There is no pleural effusion. There is no identified central pulmonary embolus. The main pulmonary artery diameter is within normal limits. The heart is not enlarged. There is no pericardial effusion. There is a right superior mediastinal lymph node on axial image 27 measuring 10 mm in short axis. There is no abnormally enlarged axillary or additional mediastinal or hilar lymph node meeting CT size criteria for adenopathy. There is mild diffuse fatty infiltration of the liver. There is a cystic-appearing lesion in the head of the pancreas measuring 6 mm in size on axial image 149. The main pancreatic duct is not abnormally dilated. There is an incompletely imaged low-attenuation right renal lesion measuring 10 mm in size on axial image 151 with an internal attenuation value of 10 Hounsfield units which is consistent with a benign cyst in its imaged portions. There is a 6 mm left renal lesion on axial image 137 which is too small to characterize. There are atherosclerotic calcifications. There is a subcentimeter short axis superior mesenteric lymph node on axial image 123 measuring 6 mm in short axis. There is no identified bone lesion suspicious for a bone metastasis or otherwise identified acute bony abnormality. IMPRESSION: 1. There is a 10 mm short axis superior mediastinal lymph node which is indeterminate. This does appear to be more prominent in size since April 02, 2018. Recommend correlation with PET/CT. 2. No pulmonary nodule or lung mass. 3. Cystic lesion in the pancreatic head measuring 6 mm in size. Primary differential diagnostic considerations include a side branch type IPMN or serous or mucinous pancreatic neoplasm. Recommend comparison with prior cross-sectional imaging (if available) to assess for potential stability. 4. Mild diffuse fatty attrition of the liver. Dictated by: Dictated on workstation # [id number]
--- NOTE | 2020-10-10 13:11 | Diagnostic Imaging Report ---
INDICATION: Squamous cell carcinoma of the right tonsil, initial staging. TECHNIQUE: Serum blood glucose level at the time of injection was 127 mg/dL. Patient was administered 14.4 mCi F-18 FDG intravenously in left antecubital location and PET imaging was performed from the top of the skull to mid thighs. Noncontrast CT was also performed for attenuation correction and anatomic correlation. No prior PET/CT study is available for comparison. Comparison is made with prior neck CT from 09/21/[address] chest study from 10/10/2020. There is symmetric activity throughout the brain. There is a large hypermetabolic mass in the right tonsil with an SUV max of approximately 16.8. No hypermetabolic neck lymph nodes are identified. No mediastinal or hilar hypermetabolism is identified. No pulmonary parenchymal hypermetabolism is identified. Physiologic activity throughout the gastrointestinal and genitourinary tracts of the abdomen and pelvis are noted. No suspicious hypermetabolism in the abdomen or pelvis is identified. IMPRESSION: Hypermetabolic right tonsillar mass corresponding with CT neck study from 09/21/2020. No hypermetabolic cervical lymphadenopathy is detected. Dictated by: Dictated on workstation # [id number]
== END ==
LOC: RAD 08:15
PROVIDERS: ATTEND Otolaryngology Otolaryngology/Facial Plastic Surgery
DX: C09.9 Malignant neoplasm of tonsil, unspecified (principal); K86.2 Cyst of pancreas; K76.0 Fatty (change of) liver, not elsewhere classified; R59.0 Localized enlarged lymph nodes
CPT/HCPCS: 71260; 78815; A9552

== ENCOUNTER 2020-10-20 05:40 | Outpatient (CLI) | payer MEDICARE, MEDICAID ==
[~2020-10-20] VITALS: Ht 165.1 cm; Wt 75.0 kg
[~2020-10-20 05:40] MED LIST changes: -CATHETER FLUSH 10 ML SYR IV PRN; -HOLD METFORMIN - RECEIVED CONTRAST 20 ML VIAL IV SCH; -IOHEXOL 350 MG/ML 100 ML (OMNIPAQUE 350) VIAL IV ONE; -NS 100 ML (IVPB) BAG IV ONE
[2020-10-20] MEDS ORDERED: DIAZ5TAB49 PO (09:39)
[2020-10-20] MEDS ORDERED: ALBU90AE2 PO (09:39)
[2020-10-20] MEDS ORDERED: HYDR118S10 PO (09:39)
== END 2020-10-20 13:15 | disposition home or self-care (01) ==
LOC: PREOP 05:40
PROVIDERS: ATTEND Surgery
DX: Z01.818 Encounter for other preprocedural examination (principal)

== ENCOUNTER 2020-10-24 09:36 | Outpatient (RCR) | payer MEDICARE, MEDICAID ==
[~2020-10-24 09:36] MED LIST changes: +ALBU90AE2 PO; +DIAZ5TAB49 PO; +HYDR118S10 PO
== END 2020-11-10 11:39 | disposition home or self-care (01) ==
LOC: ONC 09:36
PROVIDERS: ATTEND Internal Medicine Hematology & Oncology
DX: C09.8 Malignant neoplasm of overlapping sites of tonsil (principal); G89.3 Neoplasm related pain (acute) (chronic); I10 Essential (primary) hypertension; E78.00 Pure hypercholesterolemia, unspecified; F17.290 Nicotine dependence, other tobacco product, uncomplicated; K02.9 Dental caries, unspecified; Z79.899 Other long term (current) drug therapy
CPT/HCPCS: G0463 ×2; 99204; 99213; 99214

== ENCOUNTER 2020-10-25 10:14 | Day surgery (SDC) | payer MEDICARE, MEDICAID ==
[~2020-10-25] VITALS: Ht 165 cm; Wt 75.0 kg
[2020-10-25] VITALS (7 sets, daily range): BP systolic 129–149; BP diastolic 89–103
[2020-10-25] MEDS ORDERED: ceFAZolin INJECTION 1,000 MG in WATER (STERILE) FOR INJECTION 10 ML IV ONE (10:15)
[2020-10-25] MEDS ORDERED: LACTATED RINGERS 1,000 ML IV PRN (10:15)
--- NOTE | 2020-10-25 10:25 | Progress Note-Pre Operative ---
Pre-Operative Progress Note H&P Reviewed The H&P was reviewed, patient examined and no changes noted. Date Seen by Provider: Oct 25, 2020 Time Seen by Provider: 10:24 Date H&P Reviewed: Oct 25, 2020 Time H&P Reviewed: 10:24 Pre-Operative Diagnosis: malignant tumor or tonsil ROSSY ORNELAS DO Oct 25, 2020 10:25
[2020-10-25] MEDS ORDERED: 0.9% SODIUM CHLORIDE PF INJ 20 ML VIAL ONE (11:36)
[2020-10-25] MEDS ORDERED: LIDOCAINE/EPI 1%-1:100,000 (XYLOCAINE) 20ML ONE (11:37)
[2020-10-25] MEDS ORDERED: HEParin (CENTRAL IV FLUSH) 500 UNIT/5 ML SYR ONE (11:37)
[2020-10-25] MEDS ORDERED: morphine INJ 10 MG/ML 1ML (SYR OR VIAL) IVP ONE (12:30)
[2020-10-25] MEDS ORDERED: ONDANSETRON 4 MG/2 ML (SDV) Z0FRAN IVP PRN (12:30)
--- NOTE | 2020-10-25 12:38 | Discharge Inst-Simple/Standard ---
Discharge Inst-Standard Patient Instructions/Follow Up Plan of Care/Instructions/FU: 2 weeks Michael Activity as Tolerated: No Discharge Diet: Liquid Diet (for 24 hours then advance as tolerates.) Other Inst to Patient Follow up Appt: Make appointment for 2 week. Instructions: No lifting greater than 10 pounds. No strenuous activity. May shower in 24 hours, no tub bath or soaking. Use incentive spirometer at home as directed. No Smoking Skin/Wound Care: You have special glue over your incision that will fall off on it's own. Rotate the gastrostomy tube 2-3 times per day. Change bandage daily. Irrigate with 20 mL of water per day, starting tomorrow. Symptoms to Report: Appetite Changes, Extremity Discoloration, Numbness/Tingling, Swelling Increased, Bleeding Excessive, Eyesight Changes, Pain Increased, Urine Color Abbi nge, Constipation(Persistent), Fever over 101 degree F, Pain/Pressure in chest, Urinating Difficulty, Cough Up/Vomit Blood, Heart Beat Irreg/Pounding, Pain/Pressure in jaw, Vaginal Bleeding Increase, Cramps in feet or legs, Lightheadedness, Pain/Pressure in shoulder, Diarrhea(Persistent), Memory Changes Suddenly, Questions/Concerns, Weight gain consecutive days, Dizziness/Fainting, Nausea/Vomiting, Shortness of Breath, Weight gain over 2 pounds If questions or concerns contact your physician Or seek help at emergency department. ROSSY ORNELAS DO Oct 25, 2020 12:38
--- NOTE | 2020-10-25 12:41 | Progress Note-Post Operative ---
Post-Operative Progess Note Surgeon (s)/Manager Protein (s) Surgeon ROSSY ORNELAS DO Manager Protein: Dr. Mcghee Pre-Operative Diagnosis malignant tumor or tonsil Post-Operative Diagnosis same Procedure & Operative Findings Date of Procedure 10/25/20 Procedure Performed/Findings egd c peg, port placement u/s guided right IJ Anesthesia Type mac c local Estimated Blood Loss Estimated blood loss (mL): minimal Specimens/Packing Specimens Removed none ROSSY ORNELAS DO Oct 25, 2020 12:41
--- NOTE | 2020-10-25 12:56 | Diagnostic Imaging Report ---
INDICATION: Port placement at 11:14 a.m. Single view of the chest demonstrates a right IJ Port-A-Cath in good position. The distal aspect of the line tip is in the SVC. There is no pneumothorax or effusion. The heart is normal. Osseous structures are age-appropriate. IMPRESSION: Well-positioned Port-A-Cath. Dictated by: Dictated on workstation # [id number]
--- NOTE | 2020-10-25 13:25 | Diagnostic Imaging Report ---
INDICATION: Fluoroscopy during port placement. FINDINGS: Fluoroscopy was provided in the OR during right-sided port placement. 20 seconds of fluoroscopic time was utilized. Two images were obtained demonstrating a right sided port with the tip overlying the SVC. IMPRESSION: Fluoroscopy during port placement. Dictated by: Dictated on workstation # [id number]
[2020-10-25] MEDS ORDERED: HYDROcodone/APAP 7.5MG-325 MG/15 ML (LORTAB) UDC PO ONE (13:30)
--- NOTE | 2020-10-25 14:00 | Anesthesia-General Post-Op ---
MAC Patient Condition Mental Status/LOC: Same as Preop Cardiovascular: Satisfactory Nausea/Vomiting: Absent Respiratory: Satisfactory Pain: Controlled Complications: Absent Post Op Complications Complications None Follow Up Care/Instructions Patient Instructions None needed. Anesthesiology Discharge Order Discharge Order Patient was seen after the procedure and he was doing well, stable vital signs, no apparent adverse anesthesia problems. He did have recall throughout the procedure and I explained to him that his IV had unknowingly infiltrated, which was the cause for his recall. He was in good spirits and understood. Due to the local anesthetic by Dr Rodriguez, the patient stated he had no pain during the procedure. Patient had no complaints and was very appreciative. QUINTON TERAN DO Oct 25, 2020 14:00
--- NOTE | 2020-10-25 16:45 | OPERATIVE REPORT ---
DATE OF SERVICE: PREOPERATIVE DIAGNOSIS: Tonsillar cancer. POSTOPERATIVE DIAGNOSIS: Tonsillar cancer. PROCEDURE: PEG tube placement. SURGEON: Eddie Mcghee DO DRUGLESS PHYSICIAN: None. ANESTHESIA: IV sedation by anesthesiologist. BLOOD LOSS: Scant. FLUIDS: Per anesthesia. POSTOPERATIVE CONDITION: Stable. INDICATION FOR PROCEDURE: The patient is a 60-year-old male who had tonsillar cancer and needed PEG tube placement because he is going to get radiation and chemotherapy, which can make it hard for him to eat and get nutrition. FINDINGS: The patient had a PEG tube placed without difficulty. PROCEDURE NOTE: The patient was already in the room and had just had port placed by Dr. Rodriguez. He was already sedated and Dr. Rodriguez then performed an EGD. During this, he insufflated the stomach. I then sterilely prepped and draped the stomach. Local lidocaine was used to infiltrate the skin and then made a stab incision with #11 blade and then advanced the needle through the abdominal wall into the stomach. Needle came through. Dr. Rodriguez then grasped the sheath and then I removed the needle. I then threaded a wire through the sheath and he was able to then pull this wire out of the stomach, up the esophagus and then out of the patient's mouth. This wire was then attached to the PEG tube. I then pulled the PEG tube down through the esophagus into the stomach, pulled it tight against the abdominal wall, but not too tight, able to easily spin. It was right at about 3 cm. I then placed some Betadine gel and then a 2 x 2 drain sponge and then the bolster was pulled down tight on the abdominal wall in order to hold the PEG in place. Next, placed the locking mechanism on the PEG tube and the entire area was then cleaned and dried, dressing placed. The patient tolerated the procedure. Sponge, instrument and needle count correct at the end of the case. He was transferred to recovery in stable condition. Job ID: [id number] DocumentID: [id number] Dictated Date: 10/25/2020 13:00:29 Emergency Vehicle Operations Instructor Date: 10/25/2020 16:44:27 Dictated By: EDDIE MCGHEE DO [facility]
--- NOTE | 2020-10-26 17:30 | OPERATIVE REPORT ---
DATE OF SERVICE: 10/25/2020 PREOPERATIVE DIAGNOSIS: Cancer of the tonsil. POSTOPERATIVE DIAGNOSIS: Cancer of the tonsil. PROCEDURE: Ultrasound-guided port placement, right internal jugular vein and EGD for gastrostomy tube placement performed by Dr. Mcghee. See his dictation. SURGEON: Rossy Ornelas DO ANESTHESIA: MAC with local. ESTIMATED BLOOD LOSS: Minimal. COMPLICATIONS: None. INDICATIONS: The patient is a 60-year-old male who was recently diagnosed with cancer of the tonsil. The patient needing port placed and gastrostomy tube. He understands risks and benefits and wishes to proceed. Consent was signed in the chart. DESCRIPTION OF PROCEDURE: The patient was taken to the operating suite, was prepped and draped in usual sterile fashion for right internal jugular vein ultrasound-guided port placement. Timeout was performed. Using ultrasound, the right internal jugular vein was accessed after local anesthetic was infiltrated. A dark nonpulsatile blood was withdrawn. The micro access wire was inserted through the needle, the needle was removed. Fluoroscopy assured proper placement. An 11-blade scalpel was used to make a small stab incision. Dilator was then advanced over the wire and the wire was removed. The normal guidewire was inserted and the sheath was then removed. The wire was secured. Fluoroscopy assured proper placement. Local anesthetic was infiltrated for tunneling and also the right chest for the port placement and pocket creation. The 15-blade scalpel was used to make a small skin incision over the right chest. Finger was used to bluntly dissect the pocket. Dilator sheath was advanced over the guidewire under fluoroscopy. The wire and dilator were removed. The Groshong catheter was inserted through the sheath and the sheath was then removed. The catheter was then tunneled to the pocket created on the right chest using fluoroscopy, it was cut to length and attached to the port and the port was then placed within the pocket. The port was then accessed without difficulty and flushed without difficulty, first with saline and then with heparin. The subcutaneous tissues were then reapproximated using 3-0 Vicryl. Skin was then closed using Skin Affix. The patient then had EGD performed. The scope was inserted in mouth, down the esophagus, stomach and into the duodenum without difficulty. There were no polyps, masses or ulcerations within the duodenum. Scope was slowly retracted back into the stomach where it was further insufflated. No polyps, masses or ulcerations. Scope was retroflexed noting hiatal hernia, no other pathology. Scope was returned to its normal position. The stomach was insufflated with further air. Once the Angiocath needle was inserted, snare was used to grasp the sheath. The wire was inserted through the sheath and the snare was used to grab the wire, which was then withdrawn from the mouth. The gastrostomy tube was attached to the wire and then the gastrostomy tube was followed back down through the mouth and down the esophagus into the stomach where in place. The scope was then slowly retracted back until completely removed, noting no other pathology. The patient tolerated procedure well without any complications, taken to recovery room in stable condition. Job ID: [id number] DocumentID: [id number] Dictated Date: 10/26/2020 13:10:21 Uc Architect Date: 10/26/2020 17:29:24 Dictated By: ROSSY ORNELAS DO
== END 2020-10-25 14:20 | disposition home or self-care (01) ==
LOC: SDC 10:14
PROVIDERS: ATTEND Surgery
DX: C09.9 Malignant neoplasm of tonsil, unspecified (principal); I10 Essential (primary) hypertension; F41.9 Anxiety disorder, unspecified; F17.210 Nicotine dependence, cigarettes, uncomplicated; Z92.3 Personal history of irradiation; Z92.21 Personal history of antineoplastic chemotherapy; Z79.891 Long term (current) use of opiate analgesic; Z79.899 Other long term (current) drug therapy
CPT/HCPCS: 36561; 43246; 71045; 76000; 87081; C1788

== ENCOUNTER 2020-11-23 14:09 | Emergency (ER) | payer MEDICARE, MEDICAID ==
[~2020-11-23] VITALS: Ht 167.7 cm; Wt 75.0 kg
--- NOTE | 2020-11-23 14:30 | ED EENT ---
History of Present Illness General Stated Complaint: FAINTING Source: patient Exam Limitations: no limitations (RALPH BONILLA APRN) History of Present Illness Date Seen by Provider: Nov 23, 2020 Time Seen by Provider: 14:23 Initial Comments Has known right tonsil cancer. Has completed chemotherapy and radiation and now has a PEG tube. Does not have primary care provider, needs more hydrocodone due to his ongoing pain. Timing/Duration: this morning Severity: moderate Associated Symptoms: denies symptoms, sore throat (RALPH BONILLA APRN) Allergies and Home Medications Allergies Coded Allergies: No Known Drug Allergies (Unverified , 10/20/20) Home Medications Albuterol Sulfate 90 Mcg Aer.pw.bas, 2 PUFF PO TID PRN for SHORTNESS OF BREATH, (Reported) Amlodipine Besylate 5 Mg Tablet, 5 MG PO DAILY, (Reported) Diazepam 5 Mg Tablet, 5 MG PO BID, (Reported) Hydrocodone/Acetaminophen 118 Ml Solution, 10 ML PO Q4H, (Reported) Hydrocodone/Acetaminophen 118 Ml Solution, 15 ML PO Q4H Prescribed by: RALPH BONLILA on 11/23/20 1436 Lisinopril/Hydrochlorothiazide 1 Each Tablet, 1 TAB PO DAILY, (Reported) [viscous lidocaine] , 1 TSP PO q 2-3 hr PRN for PAIN-MILD (1-4) Prescribed by: JUDIT SALEH on 09/29/20 1248 Patient Home Medication List Home Medication List Reviewed: Yes (RALPH BONILLA APRN) Review of Systems Review of Systems Constitutional: see HPI Eyes: No Symptoms Reported Ears: No Symptoms Reported Nose: no symptoms reported Mouth: no symptoms reported Throat: see HPI Respiratory: no symptoms reported Cardiovascular: no symptoms reported Musculoskeletal: no symptoms reported Skin: no symptoms reported Neurological: No Symptoms Reported Hematologic/Lymphatic: No Symptoms Reported Immunological/Allergic: no symptoms reported (RALPH BONILLA APRN) Past Gzyykkn-Tkyevu-Ikszai Hx Immunizations Up To Date Tetanus Booster (TDap): Less than 5yrs (RALPH BONILLA APRN) Seasonal Allergies Seasonal Allergies: No (RALPH BONILLA APRN) Past Medical History Surgeries: Yes (FX JAW REPAIR) Orthopedic Respiratory: No Cardiac: Yes High Cholesterol, Hypertension Neurological: No Reproductive Disorders: No Sexually Transmitted Disease: No HIV/AIDS: No Genitourinary: No Gastrointestinal: No Musculoskeletal: No Endocrine: No HEENT: Yes (RIGHT TONSIL MASS) Loss of Vision: Bilateral Hearing Impairment: Denies Cancer: No (TONSIL ) Psychosocial: Yes Anxiety Integumentary: No Blood Disorders: No Adverse Reaction/Blood Tranf: No (RALPH BONILLA APRN) Physical Exam Vital Signs Vital Signs - First Documented 11/23/20 14:29 Temp 36.5 Pulse 81 Resp 20 B/P (MAP) 110/81 (91) Pulse Ox 95 (FRED MERRITT MD) Height, Weight, BMI Height: 5'5.00" Weight: 175lbs. 0.0oz. 79.024333go; 27.54 BMI Method:Stated General Appearance: WD/WN, no apparent distress Eyes: bilateral eye normal inspection, bilateral eye PERRL, bilateral eye EOMI Ears: bilateral ear auricle normal, bilateral ear canal normal, bilateral ear TM normal Neck: non-tender, full range of motion, lymphadenopathy (R) Respiratory: no respiratory distress, no accessory muscle use Gastrointestinal: normal bowel sounds, non tender, soft Neurologic/Psychiatric: alert, normal mood/affect, oriented x 3 Skin: normal color, warm/dry (RALPH BONILLA APRN) Progress/Results/Core Measures Results/Orders My Orders Orders - FRED MERRITT MD Ekg Tracing (11/23/20 14:22) (FRED MERRITT MD) Vital Signs/I&O 11/23/20 11/23/20 14:29 14:45 Temp 36.5 Pulse 81 81 Resp 20 20 B/P (MAP) 110/81 (91) 110/81 (91) Pulse Ox 95 95 (FRED MERRITT MD) Departure Impression Primary Impression: Tonsillar mass Disposition: 01 HOME, SELF-CARE Condition: Stable Departure-Patient Inst. Decision time for Depature: 14:32 (RALPH BONILLA APRN) Referrals: [facility] [place] (PCP) Primary Care Physician MAKAYLA LAL MD Patient Instructions: Acute Pain, Adult Add. Discharge Instructions: No 1. Return to ER for any concerns Scripts Hydrocodone/Acetaminophen (Hydrocodone-Acetamn 7.5-325/15) 118 Ml Solution 15 ML PO Q4H, #120 ML Prov: RALPH BONILLA APRN 11/23/20 ATTENDING PHYSICIAN NOTE: I was physically present as attending physician in the emergency department during the care of this patient, but I was not directly involved in the decision making or delivery of care for this patient. (FRED MERRITT MD) RALPH BONILLA APRN Nov 23, 2020 14:30 FRED MERRITT MD Nov 23, 2020 19:45
[2020-11-23] MEDS ORDERED: HYDR118S10 PO (14:35)
[2020-11-23 14:45] VITALS: BP 110/81
== END 2020-11-23 14:46 | disposition home or self-care (01) ==
LOC: EDUNIT# 14:09 → ER 14:10
DX: J35.8 Other chronic diseases of tonsils and adenoids (principal); I10 Essential (primary) hypertension; Z79.899 Other long term (current) drug therapy
CPT/HCPCS: 99281

== ENCOUNTER → 2021-02-19 | Outpatient (CLI) | payer MEDICARE, MEDICAID ==
[~2021-02-19] MED LIST changes: +CATHETER FLUSH 10 ML SYR IV PRN; +HOLD METFORMIN - RECEIVED CONTRAST 20 ML VIAL IV SCH; +IOHEXOL 350 MG/ML 100 ML (OMNIPAQUE 350) VIAL IV ONE; +NS 100 ML (IVPB) BAG IV ONE
--- NOTE | 2021-02-19 16:50 | Diagnostic Imaging Report ---
CT NECK/CHEST W INDICATION: Squamous cell carcinoma of the tonsil. COMPARISON: CTA neck of 09/21/[address] chest of 10/10/2020 TECHNIQUE: CT imaging of the neck and chest was performed with IV contrast. Automatic exposure controls were utilized to keep dose as low as reasonably achievable. FINDINGS: NECK: The large soft tissue mass centered in the right tonsillar pillar has significantly increased in size, now measuring 5.0 x 4.5 cm (previously 3.9 x 2.7 cm). This has semicircumferential encasement of the oropharynx with invasion of the right mauro-aspect of the base of the tongue. Invasion at the base of tongue does cross midline. The mass crosses midline posteriorly across the oropharynx and involves the left tonsillar pillar. There is moderate to severe luminal narrowing of the proximal oropharynx by the mass. There is inferior invasion to the level of the hypopharynx with invasion of the right pharyngeal epiglottic fold. There is no extension below the epiglottis. Specifically, no subglottic extension. The right-sided level 2A lymph node has not substantially changed measuring approximately 12 x 10 cm (previously 14 x 10 cm). A right-sided level 2/3 lymph node located anterior to the internal jugular vein measures 9 x 8 mm (previously 9 x 6 mm). No new cervical lymph nodes. The parotid glands are normal. No retropharyngeal fluid collection. Submandibular glands are normal. The patient is edentulous. No concerning focal osseous lesion within the cervical spine. CHEST: No axillary or mediastinal lymphadenopathy. The heart is normal in size without pericardial effusion. Normal heart size. Normal caliber thoracic aorta. No tracheal nodule. Minimal retained secretions are present. No pulmonary nodules that would be suspicious for metastatic disease. No concerning focal osseous lesions in the chest. Percutaneous gastrostomy tube is in place. IMPRESSION: 1. The right tonsillar pillar mass has significantly increased in size since 09/21/2020, now with extensive local invasion of the oropharynx and hypopharynx. No subglottic extension. 2. Right-sided cervical lymphadenopathy is stable. 3. No metastatic disease in the chest. Dictated by: Dictated on workstation # [id number]
== END ==
LOC: RAD 13:15
PROVIDERS: ATTEND Nurse Practitioner Adult Health
DX: C09.8 Malignant neoplasm of overlapping sites of tonsil (principal); R59.0 Localized enlarged lymph nodes
CPT/HCPCS: 70491; 71260

== ENCOUNTER → 2021-03-13 | Outpatient (RCR) | payer MEDICARE, MEDICAID ==
[2020-12-13 15:20] LABS: BASOPHILS # (AUTO) 0.1 10^3/uL (0.0-0.1); BASOPHILS % (AUTO) 1 % (0-10); EOSINOPHILS % (AUTO) 0 % (0-10); HEMATOCRIT 45 % (40-54); HEMOGLOBIN 15.6 g/dL (13.3-17.7); LYMPHOCYTES # (AUTO) 2.1 10^3/uL (1.0-4.0); LYMPHOCYTES % (AUTO) 19 % (12-44); MEAN CORPUSCULAR HEMOGLOBIN 32 pg (25-34); MEAN CORPUSCULAR HGB CONC 35 g/dL (32-36); MEAN CORPUSCULAR VOLUME 92 fL (80-99); MEAN PLATELET VOLUME 8.9 fL (9.0-12.2); MONOCYTES % (AUTO) 9 % (0-12); NEUTROPHILS # (AUTO) 7.9 10^3/uL (1.8-7.8); NEUTROPHILS % (AUTO) 71 % (42-75); PLATELET COUNT 425 10^3/uL (130-400); WHITE BLOOD COUNT 11.2 10^3/uL (4.3-11.0)
[2020-12-13 15:31] LABS: BILIRUBIN,TOTAL 0.6 MG/DL (0.1-1.0); CALCIUM 10.8 MG/DL (8.5-10.1); CREATININE SERUM 0.86 MG/DL (0.60-1.30); POTASSIUM 2.8 MMOL/L (3.6-5.0); TOTAL PROTEIN 8.3 GM/DL (6.4-8.2)
[2020-12-13 16:40] LABS: MAGNESIUM 2.2 MG/DL (1.6-2.4)
[2020-12-19 10:30] LABS: BASOPHILS # (AUTO) 0.1 10^3/uL (0.0-0.1); BASOPHILS % (AUTO) 1 % (0-10); EOSINOPHILS # (AUTO) 0.1 10^3/uL (0.0-0.3); EOSINOPHILS % (AUTO) 1 % (0-10); HEMATOCRIT 41 % (40-54); HEMOGLOBIN 14.2 g/dL (13.3-17.7); LYMPHOCYTES % (AUTO) 24 % (12-44); MEAN CORPUSCULAR HEMOGLOBIN 33 pg (25-34); MEAN CORPUSCULAR HGB CONC 35 g/dL (32-36); MEAN CORPUSCULAR VOLUME 94 fL (80-99); MEAN PLATELET VOLUME 8.7 fL (9.0-12.2); MONOCYTES # (AUTO) 0.6 10^3/uL (0.0-1.0); MONOCYTES % (AUTO) 6 % (0-12); NEUTROPHILS # (AUTO) 5.9 10^3/uL (1.8-7.8); NEUTROPHILS % (AUTO) 68 % (42-75); PLATELET COUNT 410 10^3/uL (130-400); WHITE BLOOD COUNT 8.6 10^3/uL (4.3-11.0)
[2020-12-19 10:45] LABS: CALCIUM 9.9 MG/DL (8.5-10.1); CREATININE SERUM 0.76 MG/DL (0.60-1.30); POTASSIUM 3.1 MMOL/L (3.6-5.0)
[2020-12-28 11:25] LABS: CALCIUM 10.6 MG/DL (8.5-10.1); CREATININE SERUM 0.87 MG/DL (0.60-1.30)
[2020-12-28 11:34] LABS: POTASSIUM 2.5 MMOL/L (3.6-5.0)
[2020-12-28 13:48] LABS: ALBUMIN 3.9 GM/DL (3.2-4.5); BILIRUBIN,TOTAL 0.7 MG/DL (0.1-1.0); MAGNESIUM 1.6 MG/DL (1.6-2.4); TOTAL PROTEIN 8.1 GM/DL (6.4-8.2)
[2021-01-08 13:04] LABS: BASOPHILS # (AUTO) 0.1 10^3/uL (0.0-0.1); BASOPHILS % (AUTO) 1 % (0-10); EOSINOPHILS % (AUTO) 0 % (0-10); HEMATOCRIT 46 % (40-54); HEMOGLOBIN 15.2 g/dL (13.3-17.7); LYMPHOCYTES # (AUTO) 1.8 10^3/uL (1.0-4.0); LYMPHOCYTES % (AUTO) 17 % (12-44); MEAN CORPUSCULAR HEMOGLOBIN 32 pg (25-34); MEAN CORPUSCULAR HGB CONC 33 g/dL (32-36); MEAN CORPUSCULAR VOLUME 95 fL (80-99); MEAN PLATELET VOLUME 8.7 fL (9.0-12.2); MONOCYTES # (AUTO) 0.7 10^3/uL (0.0-1.0); MONOCYTES % (AUTO) 6 % (0-12); NEUTROPHILS # (AUTO) 8.4 10^3/uL (1.8-7.8); NEUTROPHILS % (AUTO) 76 % (42-75); PLATELET COUNT 479 10^3/uL (130-400)
[2021-01-08 13:25] LABS: ALBUMIN 3.8 GM/DL (3.2-4.5); BILIRUBIN,TOTAL 0.5 MG/DL (0.1-1.0); CALCIUM 10.2 MG/DL (8.5-10.1); CREATININE SERUM 0.78 MG/DL (0.60-1.30); POTASSIUM 2.9 MMOL/L (3.6-5.0); TOTAL PROTEIN 7.7 GM/DL (6.4-8.2)
[2021-01-16 13:37] LABS: BASOPHILS # (AUTO) 0.1 10^3/uL (0.0-0.1); BASOPHILS % (AUTO) 1 % (0-10); EOSINOPHILS % (AUTO) 0 % (0-10); HEMATOCRIT 49 % (40-54); HEMOGLOBIN 16.5 g/dL (13.3-17.7); LYMPHOCYTES # (AUTO) 1.6 10^3/uL (1.0-4.0); LYMPHOCYTES % (AUTO) 15 % (12-44); MEAN CORPUSCULAR HEMOGLOBIN 32 pg (25-34); MEAN CORPUSCULAR HGB CONC 34 g/dL (32-36); MEAN CORPUSCULAR VOLUME 94 fL (80-99); MEAN PLATELET VOLUME 8.6 fL (9.0-12.2); MONOCYTES # (AUTO) 0.8 10^3/uL (0.0-1.0); MONOCYTES % (AUTO) 7 % (0-12); NEUTROPHILS # (AUTO) 8.1 10^3/uL (1.8-7.8); NEUTROPHILS % (AUTO) 77 % (42-75); PLATELET COUNT 367 10^3/uL (130-400); WHITE BLOOD COUNT 10.5 10^3/uL (4.3-11.0)
[2021-01-16 13:59] LABS: ALBUMIN 3.6 GM/DL (3.2-4.5); BILIRUBIN,TOTAL 0.7 MG/DL (0.1-1.0); CALCIUM 10.2 MG/DL (8.5-10.1); CREATININE SERUM 0.75 MG/DL (0.60-1.30); POTASSIUM 2.7 MMOL/L (3.6-5.0)
[2021-02-20 10:19] LABS: BASOPHILS # (AUTO) 0.1 10^3/uL (0.0-0.1); BASOPHILS % (AUTO) 1 % (0-10); EOSINOPHILS # (AUTO) 0.1 10^3/uL (0.0-0.3); EOSINOPHILS % (AUTO) 1 % (0-10); HEMATOCRIT 46 % (40-54); HEMOGLOBIN 15.5 g/dL (13.3-17.7); LYMPHOCYTES # (AUTO) 2.2 10^3/uL (1.0-4.0); LYMPHOCYTES % (AUTO) 21 % (12-44); MEAN CORPUSCULAR HEMOGLOBIN 31 pg (25-34); MEAN CORPUSCULAR HGB CONC 34 g/dL (32-36); MEAN CORPUSCULAR VOLUME 93 fL (80-99); MONOCYTES # (AUTO) 0.6 10^3/uL (0.0-1.0); MONOCYTES % (AUTO) 6 % (0-12); NEUTROPHILS # (AUTO) 7.1 10^3/uL (1.8-7.8); NEUTROPHILS % (AUTO) 71 % (42-75); PLATELET COUNT 499 10^3/uL (130-400); WHITE BLOOD COUNT 10.1 10^3/uL (4.3-11.0)
[2021-02-20 10:47] LABS: ALBUMIN 3.6 GM/DL (3.2-4.5); BILIRUBIN,TOTAL 0.4 MG/DL (0.1-1.0); CALCIUM 10.3 MG/DL (8.5-10.1); CREATININE SERUM 0.85 MG/DL (0.60-1.30); MAGNESIUM 2.4 MG/DL (1.6-2.4); POTASSIUM 2.8 MMOL/L (3.6-5.0); TOTAL PROTEIN 8.1 GM/DL (6.4-8.2)
[2021-02-27 09:26] LABS: BASOPHILS # (AUTO) 0.1 10^3/uL (0.0-0.1); BASOPHILS % (AUTO) 0 % (0-10); EOSINOPHILS # (AUTO) 0.1 10^3/uL (0.0-0.3); EOSINOPHILS % (AUTO) 0 % (0-10); HEMATOCRIT 45 % (40-54); HEMOGLOBIN 15.4 g/dL (13.3-17.7); LYMPHOCYTES # (AUTO) 1.9 10^3/uL (1.0-4.0); LYMPHOCYTES % (AUTO) 17 % (12-44); MEAN CORPUSCULAR HEMOGLOBIN 31 pg (25-34); MEAN CORPUSCULAR HGB CONC 34 g/dL (32-36); MEAN CORPUSCULAR VOLUME 92 fL (80-99); MEAN PLATELET VOLUME 9.2 fL (9.0-12.2); MONOCYTES # (AUTO) 0.6 10^3/uL (0.0-1.0); MONOCYTES % (AUTO) 6 % (0-12); NEUTROPHILS # (AUTO) 8.8 10^3/uL (1.8-7.8); NEUTROPHILS % (AUTO) 77 % (42-75); PLATELET COUNT 491 10^3/uL (130-400); WHITE BLOOD COUNT 11.4 10^3/uL (4.3-11.0)
[2021-02-27 09:55] LABS: CALCIUM 10.1 MG/DL (8.5-10.1); CREATININE SERUM 0.78 MG/DL (0.60-1.30); POTASSIUM 2.6 MMOL/L (3.6-5.0)
[2021-03-06 09:35] LABS: BASOPHILS % (AUTO) 0 % (0-10); EOSINOPHILS # (AUTO) 0.1 10^3/uL (0.0-0.3); EOSINOPHILS % (AUTO) 1 % (0-10); HEMATOCRIT 43 % (40-54); HEMOGLOBIN 14.6 g/dL (13.3-17.7); LYMPHOCYTES % (AUTO) 10 % (12-44); MEAN CORPUSCULAR HEMOGLOBIN 31 pg (25-34); MEAN CORPUSCULAR HGB CONC 34 g/dL (32-36); MEAN CORPUSCULAR VOLUME 91 fL (80-99); MEAN PLATELET VOLUME 9.1 fL (9.0-12.2); MONOCYTES # (AUTO) 0.7 10^3/uL (0.0-1.0); MONOCYTES % (AUTO) 7 % (0-12); NEUTROPHILS % (AUTO) 82 % (42-75); PLATELET COUNT 500 10^3/uL (130-400); WHITE BLOOD COUNT 9.8 10^3/uL (4.3-11.0)
[2021-03-06 09:55] LABS: CALCIUM 10.4 MG/DL (8.5-10.1); CREATININE SERUM 0.77 MG/DL (0.60-1.30); MAGNESIUM 2.3 MG/DL (1.6-2.4); POTASSIUM 2.7 MMOL/L (3.6-5.0)
[~2021-03-13] VITALS: Ht 165.1 cm; Wt 63.0 kg
[~2021-03-13] MED LIST changes: -CATHETER FLUSH 10 ML SYR IV PRN; +CISplatin 60 MG, MANNITOL 25% INJ (CANCER CTR) 12.5 GM, MAGNESIUM SULFATE (CANCER CTR) ... IV SCH; +FOSAPREPITANT (CANCER CENTER) 150 MG in NS (IVPB) CANCER CENTER ONLY 150 ML IV SCH; -HOLD METFORMIN - RECEIVED CONTRAST 20 ML VIAL IV SCH; -IOHEXOL 350 MG/ML 100 ML (OMNIPAQUE 350) VIAL IV ONE; -LISI1TAB29 PO; +LISI1TAB44 PO; -NS 100 ML (IVPB) BAG IV ONE; +NS IV 1000 ML (CANCER CTR) 1,000 ML ONE; +POTASSIUM CHL INJ (CANCER CTR) 20 MEQ in NS IV 1000 ML (CANCER CTR) 1,000 ML IV ONE; +POTASSIUM CHL INJ (CANCER CTR) 20 MEQ in NS IV 1000 ML (CANCER CTR) 1,000 ML IV SCH
[2021-03-13 10:55] LABS: BASOPHILS % (AUTO) 0 % (0-10); EOSINOPHILS % (AUTO) 0 % (0-10); HEMATOCRIT 42 % (40-54); HEMOGLOBIN 14.3 g/dL (13.3-17.7); LYMPHOCYTES # (AUTO) 0.7 10^3/uL (1.0-4.0); LYMPHOCYTES % (AUTO) 7 % (12-44); MEAN CORPUSCULAR HEMOGLOBIN 31 pg (25-34); MEAN CORPUSCULAR HGB CONC 34 g/dL (32-36); MEAN CORPUSCULAR VOLUME 90 fL (80-99); MONOCYTES # (AUTO) 0.7 10^3/uL (0.0-1.0); MONOCYTES % (AUTO) 7 % (0-12); NEUTROPHILS # (AUTO) 8.4 10^3/uL (1.8-7.8); NEUTROPHILS % (AUTO) 85 % (42-75); PLATELET COUNT 446 10^3/uL (130-400); WHITE BLOOD COUNT 9.9 10^3/uL (4.3-11.0)
[2021-03-13 11:13] LABS: ALBUMIN 3.4 GM/DL (3.2-4.5); BILIRUBIN,TOTAL 0.5 MG/DL (0.1-1.0); CALCIUM 9.2 MG/DL (8.5-10.1); CREATININE SERUM 0.66 MG/DL (0.60-1.30); MAGNESIUM 1.6 MG/DL (1.6-2.4); TOTAL PROTEIN 7.2 GM/DL (6.4-8.2)
[2021-03-13 11:28] LABS: POTASSIUM 2.3 MMOL/L (3.6-5.0)
== END | disposition home or self-care (01) ==
LOC: ONC 12-13 14:55
PROVIDERS: ATTEND Internal Medicine Hematology & Oncology
DX: Z51.11 Encounter for antineoplastic chemotherapy (principal); Z51.0 Encounter for antineoplastic radiation therapy; C09.8 Malignant neoplasm of overlapping sites of tonsil; G89.3 Neoplasm related pain (acute) (chronic); I10 Essential (primary) hypertension; E87.6 Hypokalemia; E83.52 Hypercalcemia; F41.9 Anxiety disorder, unspecified; R94.5 Abnormal results of liver function studies
CPT/HCPCS: 80053; 83735; 85025; G0463; 36591; 77300; 77301; 77334; 77336; 77338; 77386; 77470; 80048; 96365; 96366; 96367; 96375; 96413; 99213

== ENCOUNTER 2021-04-19 14:46 | Observation (INO) | payer MEDICARE, MEDICAID ==
[~2021-04-19] VITALS: Ht 167 cm; Wt 56.8 kg
[~2021-04-19 14:46] MED LIST changes: -CISplatin 60 MG, MANNITOL 25% INJ (CANCER CTR) 12.5 GM, MAGNESIUM SULFATE (CANCER CTR) ... IV SCH; -FOSAPREPITANT (CANCER CENTER) 150 MG in NS (IVPB) CANCER CENTER ONLY 150 ML IV SCH; -NS IV 1000 ML (CANCER CTR) 1,000 ML ONE; -POTASSIUM CHL INJ (CANCER CTR) 20 MEQ in NS IV 1000 ML (CANCER CTR) 1,000 ML IV ONE; -POTASSIUM CHL INJ (CANCER CTR) 20 MEQ in NS IV 1000 ML (CANCER CTR) 1,000 ML IV SCH
[2021-04-19] MEDS ORDERED: ACETAMINOPHEN 325 MG TABLET PO PRN (15:45)
[2021-04-19] MEDS ORDERED: MELATONIN 3 MG TABLET PO PRN (15:45)
[2021-04-19] MEDS ORDERED: ENOXAPARIN 40 MG/0.4 ML (LOVENOX) SYR SC SCH (15:45)
[2021-04-19] MEDS ORDERED: ANTACID SUSP 30 ML UDC (MYLANTA) PO PRN (15:45)
[2021-04-19] MEDS ORDERED: PATIENT MAY USE OWN MEDS, ALL PO SCH (15:45)
[2021-04-19] MEDS ORDERED: diphenhydrAMINE 25 MG TAB (BENADRYL) PO PRN (15:45)
[2021-04-19] MEDS ORDERED: ONDANSETRON 4 MG (ZOFRAN) ORAL DISSOLVE TAB PO PRN (15:45)
[2021-04-19] MEDS ORDERED: polyethylene glycoL POWDER 17 GM (MIRALAX) PACK PO PRN (15:45)
[2021-04-19] MEDS ORDERED: ONDANSETRON 4 MG/2 ML (SDV) Z0FRAN IV PRN (15:45)
[2021-04-19] MEDS ORDERED: KCL 20 MEQ TAB (K-DUR) PO ONE (15:45)
[2021-04-19 16:00] VITALS: BP 102/74
[2021-04-19] MEDS ORDERED: HYDR118S10 PO (16:13)
[2021-04-19] MEDS ORDERED: DIAZ10TA3 PO (16:13)
[2021-04-19] MEDS ORDERED: ALBU18HF2 INH (16:13)
[2021-04-19] MEDS ORDERED: POTASSIUM CHLORIDE PO (16:13)
[2021-04-19] MEDS: NS W/KCL 40 MEQ/L 1,000 ML IV SCH (16:26)
[2021-04-19] MEDS: MAGNESIUM 1 GM/100 ML IVPB 100 ML IV SCH ×4 (16:26→21:20)
[2021-04-19] MEDS: POTASSIUM CL 10MEQ/50ML IVPB 50 ML IV SCH ×4 (16:26→19:56)
[2021-04-19] MEDS ORDERED: HYDROcodone/APAP 7.5MG-325 MG/15 ML (LORTAB) UDC PO PRN (18:15)
[2021-04-19] MEDS ORDERED: DIAZEPAM 5 MG (VALIUM) TABLET PO PRN (18:30)
[2021-04-19 20:00] VITALS: BP 111/73
[2021-04-19] MEDS: SENNOSIDES 8.6 MG (SENOKOT) TAB PO SCH (20:12)
[2021-04-19] MEDS ORDERED: DOCUSATE SODIUM 100 MG (COLACE) CAP PO SCH (21:00)
[2021-04-20 00:10] VITALS: BP 104/68
[2021-04-20] MEDS: NS W/KCL 40 MEQ/L 1,000 ML IV SCH (04:04)
[2021-04-20 04:40] LABS: POTASSIUM 2.8 MMOL/L (3.6-5.0)
[2021-04-20 04:42] VITALS: BP 113/69
[2021-04-20 04:46] LABS: CREATININE SERUM 0.94 MG/DL (0.60-1.30)
[2021-04-20 04:48] LABS: MAGNESIUM 2.1 MG/DL (1.6-2.4)
[2021-04-20] MEDS: POTASSIUM CL 10MEQ/50ML IVPB 50 ML IV SCH ×5 (05:14→09:48)
[2021-04-20] MEDS ORDERED: KCL 20 MEQ TAB (K-DUR) PO SCH (06:00)
[2021-04-20] MEDS ORDERED: POTASSIUM CL 10MEQ/50ML IVPB 50 ML IV SCH (06:00)
[2021-04-20] MEDS ORDERED: MAGNESIUM 1 GM/100 ML IVPB 100 ML IV SCH (06:00)
[2021-04-20 07:47] VITALS: BP 121/71
[2021-04-20] MEDS: SENNOSIDES 8.6 MG (SENOKOT) TAB PO SCH (08:20)
[2021-04-20 11:45] VITALS: BP 115/75
[2021-04-20] MEDS ORDERED: KCL 20 MEQ TAB (K-DUR) PO NR (11:45)
[2021-04-20 13:50] VITALS: BP 115/75
--- NOTE | 2021-05-10 08:34 | Discharge Summary ---
Discharge Summary Hospital Course Problems/Dx: (1) Tonsil cancer Status: Acute (2) TAE (acute kidney injury) Status: Acute Hospital Course Date of Admission: Apr 19, 2021 at 15:20 Admission Diagnosis : Acute kidney injury [facility] Date of Discharge: 04/20/21 Discharge Diagnosis: Acute kidney injury Hospital Course: Thony Ventura is a 61 year old male with tonsil cancer who presented to the [facility] with dehydration. He was found to have an acute kidney injury and was admitted to observation for IV fluids. He improved and was discharged home in stable condition. He will follow up in the cancer center as scheduled. Labs and Pending Lab Test: Home Meds Active Reported [Potassium Chloride] 20MEQ/15ML Liquid 15 Ml PO DAILY PRN Ventolin Hfa (Albuterol Sulfate) 18 Gm Hfa.aer.ad 2 Puff INH TID PRN Diazepam 10 Mg Tablet 10 Mg PO BID PRN Hydrocodone-Acetamn 7.5-325/15 (Hydrocodone/Acetaminophen) 118 Ml Solution 15 Ml PO Q6H PRN Assessment/Pt Instructions See instructions Discharge Planning: <30 minutes discharge planning Discharge Instructions Discharge Diet: No Restrictions Activity as Tolerated: Yes Discharge Physical Examination General Appearance: No Apparent Distress, WD/WN Respiratory: Lungs Clear, Normal Breath Sounds, No Respiratory Distress Cardiovascular: Regular Rate, Rhythm, No Edema, No Murmur Gastrointestinal: Normal Bowel Sounds, Soft, Other (g-tube in place) Extremity: Normal Inspection, No Pedal Edema Skin: Normal Color, Warm/Dry Neurologic/Psychiatric: Alert, No Motor/Sensory Deficits, Normal Mood/Affect Allergies: Coded Allergies: No Known Drug Allergies (Unverified , 10/20/20) Discharge Summary Date of Admission Apr 19, 2021 at 15:20 Date of Discharge Apr 20, 2021 at 12:50 Discharge Date: Apr 20, 2021 Discharge Time: 12:50 Admission Diagnosis Acute kidney injury Discharge Diagnosis (1) Tonsil cancer Status: Acute (2) TAE (acute kidney injury) Status: Acute EVANGELISTA NAVARRETE MD May 10, 2021 08:34
== END 2021-04-20 11:05 | disposition home or self-care (01) ==
LOC: 4TH 15:20 → UNDOADMOB 15:20 → 4TH 17:40 → UNDODISOB 04-20 12:50
PROVIDERS: ADMIT Internal Medicine; ATTEND Internal Medicine
DX: N17.9 Acute kidney failure, unspecified (principal); C09.9 Malignant neoplasm of tonsil, unspecified; E86.0 Dehydration; Z79.899 Other long term (current) drug therapy; Z79.891 Long term (current) use of opiate analgesic
CPT/HCPCS: 80048; 83735; G0378; G0379; 36415

== ENCOUNTER 2021-04-26 10:32 | Outpatient (RCR) | payer MEDICARE, MEDICAID ==
[2021-03-20 11:06] LABS: BASOPHILS % (AUTO) 1 % (0-10); EOSINOPHILS % (AUTO) 0 % (0-10); HEMATOCRIT 39 % (40-54); HEMOGLOBIN 13.5 g/dL (13.3-17.7); LYMPHOCYTES # (AUTO) 0.6 10^3/uL (1.0-4.0); LYMPHOCYTES % (AUTO) 8 % (12-44); MEAN CORPUSCULAR HEMOGLOBIN 31 pg (25-34); MEAN CORPUSCULAR HGB CONC 35 g/dL (32-36); MEAN CORPUSCULAR VOLUME 89 fL (80-99); MONOCYTES # (AUTO) 0.5 10^3/uL (0.0-1.0); MONOCYTES % (AUTO) 6 % (0-12); NEUTROPHILS # (AUTO) 6.6 10^3/uL (1.8-7.8); NEUTROPHILS % (AUTO) 84 % (42-75); PLATELET COUNT 402 10^3/uL (130-400); WHITE BLOOD COUNT 7.8 10^3/uL (4.3-11.0)
[2021-03-20 11:20] LABS: CALCIUM 10.1 MG/DL (8.5-10.1); CREATININE SERUM 0.71 MG/DL (0.60-1.30)
[2021-03-20 11:37] LABS: MAGNESIUM 1.6 MG/DL (1.6-2.4)
[2021-03-20 11:52] LABS: POTASSIUM 2.4 MMOL/L (3.6-5.0)
[2021-03-28 09:58] LABS: BASOPHILS % (AUTO) 0 % (0-10); EOSINOPHILS % (AUTO) 1 % (0-10); HEMATOCRIT 36 % (40-54); HEMOGLOBIN 12.6 g/dL (13.3-17.7); LYMPHOCYTES # (AUTO) 0.4 10^3/uL (1.0-4.0); LYMPHOCYTES % (AUTO) 5 % (12-44); MEAN CORPUSCULAR HEMOGLOBIN 31 pg (25-34); MEAN CORPUSCULAR HGB CONC 35 g/dL (32-36); MEAN CORPUSCULAR VOLUME 89 fL (80-99); MEAN PLATELET VOLUME 8.9 fL (9.0-12.2); MONOCYTES # (AUTO) 0.5 10^3/uL (0.0-1.0); MONOCYTES % (AUTO) 7 % (0-12); NEUTROPHILS # (AUTO) 6.8 10^3/uL (1.8-7.8); NEUTROPHILS % (AUTO) 85 % (42-75); PLATELET COUNT 298 10^3/uL (130-400); WHITE BLOOD COUNT 7.9 10^3/uL (4.3-11.0)
[2021-03-28 10:12] LABS: ALBUMIN 3.7 GM/DL (3.2-4.5); BILIRUBIN,TOTAL 0.6 MG/DL (0.1-1.0); CALCIUM 9.8 MG/DL (8.5-10.1); CREATININE SERUM 0.79 MG/DL (0.60-1.30); MAGNESIUM 1.3 MG/DL (1.6-2.4); TOTAL PROTEIN 7.4 GM/DL (6.4-8.2)
[2021-03-28 10:34] LABS: POTASSIUM 2.3 MMOL/L (3.6-5.0)
[2021-04-03 14:10] LABS: BASOPHILS % (AUTO) 1 % (0-10); EOSINOPHILS % (AUTO) 1 % (0-10); HEMATOCRIT 37 % (40-54); HEMOGLOBIN 13.2 g/dL (13.3-17.7); LYMPHOCYTES # (AUTO) 0.4 10^3/uL (1.0-4.0); LYMPHOCYTES % (AUTO) 7 % (12-44); MEAN CORPUSCULAR HEMOGLOBIN 31 pg (25-34); MEAN CORPUSCULAR HGB CONC 35 g/dL (32-36); MEAN CORPUSCULAR VOLUME 89 fL (80-99); MEAN PLATELET VOLUME 8.9 fL (9.0-12.2); MONOCYTES # (AUTO) 0.5 10^3/uL (0.0-1.0); MONOCYTES % (AUTO) 8 % (0-12); NEUTROPHILS # (AUTO) 5.2 10^3/uL (1.8-7.8); NEUTROPHILS % (AUTO) 85 % (42-75); PLATELET COUNT 278 10^3/uL (130-400); WHITE BLOOD COUNT 6.2 10^3/uL (4.3-11.0)
[2021-04-03 14:31] LABS: ALBUMIN 3.9 GM/DL (3.2-4.5); BILIRUBIN,TOTAL 0.8 MG/DL (0.1-1.0); CALCIUM 9.7 MG/DL (8.5-10.1); CREATININE SERUM 1.04 MG/DL (0.60-1.30); TOTAL PROTEIN 7.6 GM/DL (6.4-8.2)
[2021-04-03 14:35] LABS: MAGNESIUM 0.9 MG/DL (1.6-2.4); POTASSIUM 2.3 MMOL/L (3.6-5.0)
[2021-04-05 11:13] LABS: CREATININE SERUM 0.81 MG/DL (0.60-1.30)
[2021-04-05 11:39] LABS: POTASSIUM 2.2 MMOL/L (3.6-5.0)
[2021-04-11 11:11] LABS: BASOPHILS % (AUTO) 0 % (0-10); EOSINOPHILS % (AUTO) 1 % (0-10); HEMATOCRIT 32 % (40-54); HEMOGLOBIN 10.9 g/dL (13.3-17.7); LYMPHOCYTES # (AUTO) 0.3 10^3/uL (1.0-4.0); LYMPHOCYTES % (AUTO) 9 % (12-44); MEAN CORPUSCULAR HEMOGLOBIN 31 pg (25-34); MEAN CORPUSCULAR HGB CONC 34 g/dL (32-36); MEAN CORPUSCULAR VOLUME 89 fL (80-99); MEAN PLATELET VOLUME 8.9 fL (9.0-12.2); MONOCYTES # (AUTO) 0.3 10^3/uL (0.0-1.0); MONOCYTES % (AUTO) 8 % (0-12); NEUTROPHILS # (AUTO) 3.2 10^3/uL (1.8-7.8); NEUTROPHILS % (AUTO) 82 % (42-75); PLATELET COUNT 222 10^3/uL (130-400); WHITE BLOOD COUNT 3.9 10^3/uL (4.3-11.0)
[2021-04-11 11:34] LABS: ALBUMIN 3.7 GM/DL (3.2-4.5); BILIRUBIN,TOTAL 0.6 MG/DL (0.1-1.0); CREATININE SERUM 1.11 MG/DL (0.60-1.30); TOTAL PROTEIN 7.1 GM/DL (6.4-8.2)
[2021-04-11 12:01] LABS: MAGNESIUM 0.6 MG/DL (1.6-2.4); POTASSIUM 2.3 MMOL/L (3.6-5.0)
[2021-04-19 13:50] LABS: BASOPHILS % (AUTO) 1 % (0-10); EOSINOPHILS % (AUTO) 1 % (0-10); HEMATOCRIT 33 % (40-54); HEMOGLOBIN 11.6 g/dL (13.3-17.7); LYMPHOCYTES # (AUTO) 0.6 10^3/uL (1.0-4.0); LYMPHOCYTES % (AUTO) 16 % (12-44); MEAN CORPUSCULAR HEMOGLOBIN 32 pg (25-34); MEAN CORPUSCULAR HGB CONC 36 g/dL (32-36); MEAN CORPUSCULAR VOLUME 89 fL (80-99); MEAN PLATELET VOLUME 8.7 fL (9.0-12.2); MONOCYTES # (AUTO) 0.3 10^3/uL (0.0-1.0); MONOCYTES % (AUTO) 9 % (0-12); NEUTROPHILS # (AUTO) 2.7 10^3/uL (1.8-7.8); NEUTROPHILS % (AUTO) 74 % (42-75); PLATELET COUNT 303 10^3/uL (130-400); WHITE BLOOD COUNT 3.7 10^3/uL (4.3-11.0)
[2021-04-19 14:08] LABS: ALBUMIN 3.9 GM/DL (3.2-4.5); BILIRUBIN,TOTAL 0.8 MG/DL (0.1-1.0); CALCIUM 8.8 MG/DL (8.5-10.1); CREATININE SERUM 1.71 MG/DL (0.60-1.30); TOTAL PROTEIN 7.6 GM/DL (6.4-8.2)
[2021-04-19 14:31] LABS: POTASSIUM 2.3 MMOL/L (3.6-5.0)
[2021-04-19 14:35] LABS: MAGNESIUM 0.7 MG/DL (1.6-2.4)
[2021-04-23 11:17] LABS: BASOPHILS % (AUTO) 0 % (0-10); EOSINOPHILS % (AUTO) 0 % (0-10); HEMATOCRIT 31 % (40-54); HEMOGLOBIN 10.9 g/dL (13.3-17.7); LYMPHOCYTES # (AUTO) 0.8 10^3/uL (1.0-4.0); LYMPHOCYTES % (AUTO) 18 % (12-44); MEAN CORPUSCULAR HEMOGLOBIN 32 pg (25-34); MEAN CORPUSCULAR HGB CONC 35 g/dL (32-36); MEAN CORPUSCULAR VOLUME 90 fL (80-99); MEAN PLATELET VOLUME 8.7 fL (9.0-12.2); MONOCYTES # (AUTO) 0.4 10^3/uL (0.0-1.0); MONOCYTES % (AUTO) 9 % (0-12); NEUTROPHILS # (AUTO) 3.1 10^3/uL (1.8-7.8); NEUTROPHILS % (AUTO) 73 % (42-75); PLATELET COUNT 367 10^3/uL (130-400); WHITE BLOOD COUNT 4.3 10^3/uL (4.3-11.0)
[2021-04-23 11:38] LABS: CALCIUM 9.5 MG/DL (8.5-10.1); CREATININE SERUM 1.77 MG/DL (0.60-1.30); MAGNESIUM 1.2 MG/DL (1.6-2.4); POTASSIUM 2.7 MMOL/L (3.6-5.0)
[~2021-04-26 10:32] MED LIST changes: +ALBU18HF2 INH; +CISplatin 60 MG, MANNITOL 25% INJ (CANCER CTR) 12.5 GM, MAGNESIUM SULFATE (CANCER CTR) ... IV SCH; +DIAZ10TA3 PO; +FOSAPREPITANT (CANCER CENTER) 150 MG in NS (IVPB) CANCER CENTER ONLY 150 ML IV SCH; +MAGNESIUM SULFATE (CANCER CTR) 2 GM in NS (IVPB) CANCER CENTER 100 ML IV ONE; +MAGNESIUM SULFATE (CANCER CTR) 4 GM in NS (IVPB) CANCER CENTER 100 ML IV ONE; +MAGNESIUM SULFATE IV ONE; +NS IV ONE; +POTASSIUM CHL INJ (CANCER CTR) 20 MEQ in NS IV 1000 ML (CANCER CTR) 1,000 ML IV SCH; +POTASSIUM CHL INJ (CANCER CTR) 20 MEQ, MAGNESIUM SULFATE (CANCER CTR) 2 GM in NS IV 100... IV ONE; +POTASSIUM CHL IV ONE; +POTASSIUM CHLORIDE PO; +[UNRECOGNIZED DRUG - OTHER] IV ONE; +[UNRECOGNIZED DRUG - OTHER] IV ONE; +[UNRECOGNIZED DRUG - OTHER] IV ONE
[2021-04-26 11:07] LABS: BASOPHILS % (AUTO) 1 % (0-10); EOSINOPHILS % (AUTO) 1 % (0-10); HEMATOCRIT 29 % (40-54); HEMOGLOBIN 10.1 g/dL (13.3-17.7); LYMPHOCYTES # (AUTO) 0.7 10^3/uL (1.0-4.0); LYMPHOCYTES % (AUTO) 16 % (12-44); MEAN CORPUSCULAR HEMOGLOBIN 32 pg (25-34); MEAN CORPUSCULAR HGB CONC 35 g/dL (32-36); MEAN CORPUSCULAR VOLUME 91 fL (80-99); MEAN PLATELET VOLUME 8.5 fL (9.0-12.2); MONOCYTES # (AUTO) 0.4 10^3/uL (0.0-1.0); MONOCYTES % (AUTO) 9 % (0-12); NEUTROPHILS % (AUTO) 74 % (42-75); PLATELET COUNT 425 10^3/uL (130-400); WHITE BLOOD COUNT 4.1 10^3/uL (4.3-11.0)
[2021-04-26 11:20] LABS: CALCIUM 9.1 MG/DL (8.5-10.1); CREATININE SERUM 1.16 MG/DL (0.60-1.30); MAGNESIUM 1.3 MG/DL (1.6-2.4); POTASSIUM 2.9 MMOL/L (3.6-5.0)
== END 2021-04-27 | disposition still patient (30) ==
LOC: ONC 10:32
PROVIDERS: ATTEND Internal Medicine Hematology & Oncology
DX: C09.8 Malignant neoplasm of overlapping sites of tonsil (principal); I10 Essential (primary) hypertension; E87.6 Hypokalemia; E83.52 Hypercalcemia; J34.89 Other specified disorders of nose and nasal sinuses; F41.9 Anxiety disorder, unspecified; R94.5 Abnormal results of liver function studies
CPT/HCPCS: 36591; 77336; 77386; 80048; 80053; 83735; 85025; 96365; 96366; 96367; 96375; 96413

== ENCOUNTER 2021-05-07 10:36 | Outpatient (RCR) | payer MEDICARE, MEDICAID ==
[2021-04-30 11:31] LABS: BASOPHILS % (AUTO) 1 % (0-10); EOSINOPHILS % (AUTO) 1 % (0-10); HEMATOCRIT 30 % (40-54); HEMOGLOBIN 10.4 g/dL (13.3-17.7); LYMPHOCYTES # (AUTO) 0.7 10^3/uL (1.0-4.0); LYMPHOCYTES % (AUTO) 18 % (12-44); MEAN CORPUSCULAR HEMOGLOBIN 32 pg (25-34); MEAN CORPUSCULAR HGB CONC 35 g/dL (32-36); MEAN CORPUSCULAR VOLUME 92 fL (80-99); MEAN PLATELET VOLUME 8.2 fL (9.0-12.2); MONOCYTES # (AUTO) 0.5 10^3/uL (0.0-1.0); MONOCYTES % (AUTO) 12 % (0-12); NEUTROPHILS # (AUTO) 2.7 10^3/uL (1.8-7.8); NEUTROPHILS % (AUTO) 68 % (42-75); PLATELET COUNT 408 10^3/uL (130-400); WHITE BLOOD COUNT 3.9 10^3/uL (4.3-11.0)
[2021-04-30 11:53] LABS: CALCIUM 9.6 MG/DL (8.5-10.1); CREATININE SERUM 1.23 MG/DL (0.60-1.30); MAGNESIUM 1.5 MG/DL (1.6-2.4); POTASSIUM 2.9 MMOL/L (3.6-5.0)
[~2021-05-07 10:36] MED LIST changes: -CISplatin 60 MG, MANNITOL 25% INJ (CANCER CTR) 12.5 GM, MAGNESIUM SULFATE (CANCER CTR) ... IV SCH; -FOSAPREPITANT (CANCER CENTER) 150 MG in NS (IVPB) CANCER CENTER ONLY 150 ML IV SCH; -MAGNESIUM SULFATE (CANCER CTR) 2 GM in NS (IVPB) CANCER CENTER 100 ML IV ONE; -MAGNESIUM SULFATE (CANCER CTR) 4 GM in NS (IVPB) CANCER CENTER 100 ML IV ONE; -NS IV ONE; -POTASSIUM CHL INJ (CANCER CTR) 20 MEQ in NS IV 1000 ML (CANCER CTR) 1,000 ML IV SCH; -POTASSIUM CHL INJ (CANCER CTR) 20 MEQ, MAGNESIUM SULFATE (CANCER CTR) 2 GM in NS IV 100... IV ONE; -[UNRECOGNIZED DRUG - OTHER] IV ONE; -[UNRECOGNIZED DRUG - OTHER] IV ONE
[2021-05-07 11:01] LABS: BASOPHILS % (AUTO) 1 % (0-10); EOSINOPHILS # (AUTO) 0.1 10^3/uL (0.0-0.3); EOSINOPHILS % (AUTO) 1 % (0-10); HEMATOCRIT 28 % (40-54); HEMOGLOBIN 9.1 g/dL (13.3-17.7); LYMPHOCYTES # (AUTO) 0.8 10^3/uL (1.0-4.0); LYMPHOCYTES % (AUTO) 14 % (12-44); MEAN CORPUSCULAR HEMOGLOBIN 32 pg (25-34); MEAN CORPUSCULAR HGB CONC 33 g/dL (32-36); MEAN CORPUSCULAR VOLUME 98 fL (80-99); MEAN PLATELET VOLUME 8.6 fL (9.0-12.2); MONOCYTES # (AUTO) 0.6 10^3/uL (0.0-1.0); MONOCYTES % (AUTO) 10 % (0-12); NEUTROPHILS # (AUTO) 4.2 10^3/uL (1.8-7.8); NEUTROPHILS % (AUTO) 74 % (42-75); PLATELET COUNT 257 10^3/uL (130-400); WHITE BLOOD COUNT 5.7 10^3/uL (4.3-11.0)
[2021-05-07 11:13] LABS: ALBUMIN 3.2 GM/DL (3.2-4.5); BILIRUBIN,TOTAL 0.2 MG/DL (0.1-1.0); CALCIUM 9.1 MG/DL (8.5-10.1); CREATININE SERUM 0.99 MG/DL (0.60-1.30); MAGNESIUM 1.4 MG/DL (1.6-2.4); POTASSIUM 3.8 MMOL/L (3.6-5.0); TOTAL PROTEIN 6.1 GM/DL (6.4-8.2)
[2021-05-07] MEDS ORDERED: MAGNESIUM SULFATE (CANCER CTR) 2 GM in NS IV 1000 ML (CANCER CTR) 1,000 ML IV ONE (11:27)
== END 2021-05-28 | disposition home or self-care (01) ==
LOC: ONC 10:36
PROVIDERS: ATTEND Internal Medicine Hematology & Oncology
DX: Z51.0 Encounter for antineoplastic radiation therapy (principal); C09.8 Malignant neoplasm of overlapping sites of tonsil; I10 Essential (primary) hypertension; E87.6 Hypokalemia; E83.52 Hypercalcemia; Z45.2 Encounter for adjustment and management of vascular access device
CPT/HCPCS: 36591; 77336; 80048; 80053; 83735; 85025; 96360; 96365; 96366

== ENCOUNTER 2021-08-24 13:01 | Emergency (ER) | payer MEDICARE, MEDICAID ==
[~2021-08-24] VITALS: Ht 165.1 cm; Wt 54.4 kg
[~2021-08-24 13:01] MED LIST changes: -MAGNESIUM SULFATE IV ONE; -POTASSIUM CHL IV ONE; -[UNRECOGNIZED DRUG - OTHER] IV ONE
[2021-08-24 13:09] VITALS: BP 115/98
--- NOTE | 2021-08-24 13:58 | ED General ---
General Chief Complaint: General Problems/Pain Stated Complaint: SORE THROAT - COUGH - SOA Nursing Triage Note: PT AMBULATE TO ROOM 07 WITH C/O RIGHT SIDE THROAT PAIN. PT REPORTS HX OF THROAT CANCER. PT REPORTS BEING SEEN BY [facility] AND BY DR JIMENEZ. PT REPORTS THAT THE PROVIDER AT THE CANCER CENTER REDUCED THE DOSAGE OF HIS PAIN MEDS AND THAT HE HAS AN APPOINTMENT WITH DR JIMENEZ ON 08/28/21. PT STATES HE NEEDS SOMETHING FOR PAIN TO GET HIM THROUGH UNTIL HIS APPOINTMENT. Source of Information: Patient Exam Limitations: No Limitations History of Present Illness Date Seen by Provider: Aug 24, 2021 Time Seen by Provider: 13:40 Initial Comments Patient is a 61-year-old male who presents to the emergency room today with a chief complaint of right-sided throat pain. He tells me he has a history of throat cancer, followed by Dr. Jimenez in the cancer [place]. Patient states that his doctors are no longer giving him his hydrocodone syrup. He tells me he has an appointment with Dr. Jimenez on the third and needs medication to get him through to that part of the month. He denies any nausea vomiting, no shortness of breath. He has pain with swallowing. No fevers or chills. All other review of systems reviewed and negative except as stated. Timing/Duration: 1-2 Days Severity: Moderate Associated Systoms: Denies Symptoms Allergies and Home Medications Allergies Coded Allergies: No Known Drug Allergies (Unverified , 10/20/20) Patient Home Medication List Home Medication List Reviewed: Yes Albuterol Sulfate (Ventolin Hfa) 18 Gm Hfa.aer.ad, 2 PUFF INH TID PRN for SHORTNESS OF BREATH, (Reported) Entered as Reported by: BETSY KAPOOR on 04/19/211612 Diazepam (Diazepam) 10 Mg Tablet, 10 MG PO BID PRN for ANXIETY, (Reported) Entered as Reported by: BETSY KAPOOR on 04/19/211612 Hydrocodone/Acetaminophen (Hydrocodone-Acetamn 7.5-325/15) 118 Ml Solution, 15 ML PO Q6H PRN for PAIN-MODERATE (5-7), (Reported) Entered as Reported by: BETSY KAPOOR on 04/19/211612 [Potassium Chloride] 20MEQ/15ML LIQUID, 15 ML PO DAILY PRN for WEAKNESS, MUSCLE SPASMS, (Reported) Entered as Reported by: BETSY KAPOOR on 04/19/21 1613 Review of Systems Review of Systems Constitutional: see HPI EENTM: throat pain (right sided) Respiratory: no symptoms reported Cardiovascular: no symptoms reported Gastrointestinal: no symptoms reported Genitourinary: no symptoms reported Musculoskeletal: no symptoms reported Skin: no symptoms reported All Other Systems Reviewed Negative Unless Noted: Yes Past Ktagwhr-Xsxmaj-Ixpxcy Hx Patient Social History Tobacco Use?: No Smoking Status: Never a Smoker Smokeless Tobacco Frequency: Never a User Use of E-Cig and/or Vaping dev: No Use of E-Cig and/or Vaping Kota: Never a User Substance use?: No Alcohol Use?: No Pt feels they are or have been: No Immunizations Up To Date Tetanus Booster (TDap): Less than 5yrs Seasonal Allergies Seasonal Allergies: No Past Medical History Surgeries: Yes (FX JAW REPAIR) Orthopedic Respiratory: No Cardiac: Yes High Cholesterol, Hypertension Neurological: No Reproductive Disorders: No Sexually Transmitted Disease: No HIV/AIDS: No Genitourinary: No Gastrointestinal: No Musculoskeletal: No Endocrine: No HEENT: Yes (RIGHT TONSIL MASS) Loss of Vision: Bilateral Hearing Impairment: Denies Cancer: No (TONSIL ) Psychosocial: Yes Anxiety Integumentary: No Blood Disorders: No Adverse Reaction/Blood Tranf: No Physical Exam Vital Signs Vital Signs - First Documented 08/24/21 13:09 Temp 36.7 Pulse 118 Resp 16 B/P (MAP) 115/98 (104) O2 Delivery Room Air Capillary Refill : Less Than 3 Seconds Height, Weight, BMI Height: 5'5.00" Weight: 175lbs. 0.0oz. 79.857862eq; 19.00 BMI Method:Stated General Appearance: No Apparent Distress, WD/WN Eyes: Bilateral Eye Normal Inspection, Bilateral Eye PERRL, Bilateral Eye EOMI HEENT: PERRL/EOMI Neck: Full Range of Motion, Normal Inspection, Other (tender right subman dibular; + submandibular lymphadenopathy) Respiratory: Lungs Clear, Normal Breath Sounds, No Accessory Muscle Use, No Respiratory Distress Cardiovascular: Regular Rate, Rhythm (tachycardia 122), Normal Peripheral Pulses Extremity: Normal Inspection, Normal Range of Motion Neurologic/Psychiatric: Alert, Oriented x3, No Motor/Sensory Deficits, Normal Mood/Affect Skin: Normal Color, Warm/Dry Progress/Results/Core Measures Suspected Sepsis SIRS Temperature: Pulse: 118 Respiratory Rate: 16 Blood Pressure 115 /98 Mean: 104 Results/Orders Vital Signs/I&O 08/24/21 13:09 Temp 36.7 Pulse 118 Resp 16 B/P (MAP) 115/98 (104) O2 Delivery Room Air Capillary Refill : Less Than 3 Seconds Blood Pressure Mean: 104 Progress Note : Time: 13:57 Progress Note Reviewed patient's external medication history. It looks like he got 473 mL of hydrocodone syrup, 7.5 mg on August 07. He also picked up #50 oxycodone fives on . He should be good with regards to his narcotic medications. I did call over to Dr. Paulino office and spoke with one of his nurses regarding Mr. Ventura narcotic prescriptions. She stated that as far as being postop he is able to swallow pills therefore Hi-Lo the nurse practitioner ordered him some oxycodone 5 mg tablets #50. They are trying to keep him off the hydrocodone syrup. They have instructions not to refill that and they want to see him every 2 weeks for chronic pain management. When I went back into talk to Mr. Ventura he became very irate that I would not refill his hydrocodone syrup. I explained to him that he had a prescription of oxycodone 5 mg tablets at [facility] pharmacy. He stated that it was not the same medication, he would not get it and he could not do it and "why would I do that". He insisted the pain medication was not the same. He stood up pulled off all of his monitoring equipment slammed open the door and stormed out of the emergency department without discharge instructions Departure Impression Primary Impression: Chronic throat pain Additional Impressions: History of throat cancer narcotic seeking behavior Disposition: AGAINST MEDICAL ADVICE Condition: Against Medical Advice Departure-Patient Inst. Decision time for Depature: 13:56 Referrals: [facility] [place] Primary Care Physician Patient Instructions: Chronic Pain Add. Discharge Instructions: Continue your liquid/soft diet as instructed. Continue your home daily medications as instructed by your doctor. Keep your appointment with Dr. Jimenez for next week on Friday the . If you develop a fever, shortness of breath or any other emergent, concerning symptoms please come back to the emergency room for reevaluation. Copy Copies To 1: TONY JIMENEZ MD Copies To 2: FEDE BATRES KATHRYN M MD Aug 24, 2021 13:58
== END 2021-08-24 14:05 | disposition left against medical advice (07) ==
LOC: EDUNIT# 13:01 → ER 13:03
DX: G89.29 Other chronic pain (principal); R07.0 Pain in throat; Z76.5 Malingerer [conscious simulation]; Z85.818 Personal history of malignant neoplasm of other sites of lip, oral cavity, and pharynx
CPT/HCPCS: 99281

== ENCOUNTER 2021-10-04 05:28 | Outpatient (CLI) | payer MEDICARE, MEDICAID ==
[~2021-10-04] VITALS: Ht 165.1 cm
[2021-10-05] MEDS ORDERED: LIDO20SO23 MM ×2 (13:18)
== END 2021-10-04 10:04 | disposition home or self-care (01) ==
LOC: PREOP 05:28
PROVIDERS: ATTEND Otolaryngology Otolaryngology/Facial Plastic Surgery
DX: Z01.818 Encounter for other preprocedural examination (principal)

== ENCOUNTER 2021-10-05 08:09 | Day surgery (SDC) | payer MEDICARE, MEDICAID ==
[~2021-10-05] VITALS: Ht 165.1 cm; Wt 45.0 kg
[2021-10-05] VITALS (13 sets, daily range): BP systolic 95–155; BP diastolic 74–98
[2021-10-05] MEDS ORDERED: LIDOCAINE/EPI 2% 1:200,00 (XYLOCAINE) 10 ML VIAL ONE (08:24)
[2021-10-05] MEDS ORDERED: LACTATED RINGERS 1,000 ML IV PRN (09:00)
[2021-10-05 09:15] LABS: BASOPHILS % (AUTO) 0 % (0-10); EOSINOPHILS % (AUTO) 0 % (0-10); HEMATOCRIT 32 % (40-54); HEMOGLOBIN 10.8 g/dL (13.3-17.7); LYMPHOCYTES # (AUTO) 0.6 10^3/uL (1.0-4.0); LYMPHOCYTES % (AUTO) 8 % (12-44); MEAN CORPUSCULAR HEMOGLOBIN 33 pg (25-34); MEAN CORPUSCULAR HGB CONC 34 g/dL (32-36); MEAN CORPUSCULAR VOLUME 97 fL (80-99); MONOCYTES # (AUTO) 0.5 10^3/uL (0.0-1.0); MONOCYTES % (AUTO) 7 % (0-12); NEUTROPHILS # (AUTO) 5.7 10^3/uL (1.8-7.8); NEUTROPHILS % (AUTO) 84 % (42-75); PLATELET COUNT 452 10^3/uL (130-400); WHITE BLOOD COUNT 6.8 10^3/uL (4.3-11.0)
[2021-10-05 09:20] LABS: POTASSIUM 2.8 MMOL/L (3.6-5.0)
[2021-10-05 09:21] LABS: CALCIUM 9.3 MG/DL (8.5-10.1)
[2021-10-05 09:26] LABS: CREATININE SERUM 0.9 MG/DL (0.60-1.30)
[2021-10-05] MEDS ORDERED: ONDANSETRON 4 MG/2 ML (SDV) Z0FRAN ONE (09:39)
[2021-10-05] MEDS ORDERED: ROCURONIUM 50 MG/5 ML (ZEMURON) VIAL IV ONE (09:39)
[2021-10-05] MEDS ORDERED: proPOfol 200 MG/20 ML (DIPRIVAN) VIAL IV ONE (09:39)
[2021-10-05] MEDS ORDERED: LIDOCAINE PF 2% 5 ML (XYLOCAINE) VIAL ONE (09:39)
[2021-10-05] MEDS ORDERED: MIDAZOLAM 2 MG/2 ML (VERSED) VIAL ONE (09:40)
[2021-10-05] MEDS ORDERED: fentaNYL INJ 100 MCG/2 ML AMP ONE (09:40)
--- NOTE | 2021-10-05 10:44 | Progress Note-Pre Operative ---
Pre-Operative Progress Note H&P Reviewed The H&P was reviewed, patient examined and no changes noted. Date Seen by Provider: Oct 05, 2021 Time Seen by Provider: 10: Date H&P Reviewed: Oct 05, 2021 Time H&P Reviewed: 10:30 Pre-Operative Diagnosis: Persistent Right Tonsil Mass/Cancer TONY SCHAFER MD Oct 05, 2021 10:44
[2021-10-05] MEDS ORDERED: LIDOCAINE 2% VISCOUS 15 ML UDC PO PRN (10:45)
[2021-10-05] MEDS ORDERED: APAP 325 MG/10.15 ML LIQ (TYLENOL) UDC PO PRN (10:45)
[2021-10-05] MEDS ORDERED: HYDROcodone/APAP 7.5MG-325 MG/15 ML (LORTAB) UDC PO PRN (10:45)
[2021-10-05] MEDS ORDERED: NS IV 1000 ML 1,000 ML IV SCH (10:45)
--- NOTE | 2021-10-05 10:45 | Progress Note-Post Operative ---
Post-Operative Progess Note Surgeon (s)/Electrical Inspector (s) Surgeon TONY SCHAFER MD Electrical Inspector n/a Pre-Operative Diagnosis Persistent Right Tonsil Mass/Cancer Post-Operative Diagnosis same Post-Op Procedure Note Date of Procedure: Oct 05, 2021 Name of Procedure Performed: Biopsy of Right Tonsil Mass Description & Findings Description and Findings: n/a Anesthesia Type get Estimated Blood Loss minimal Packing none. Specimen(s) collected/removed tonsil biopsy for frozen TONY SCHAFER MD Oct 05, 2021 10:45
[2021-10-05] MEDS ORDERED: SEVOFLURANE (ULTANE) 15 ML INHAL SOLN ONE (11:25)
[2021-10-05] MEDS ORDERED: GLYCOPYRROLATE 0.2 MG/ML (ROBINUL) 2 ML VIAL ONE (11:29)
[2021-10-05] MEDS ORDERED: MEPERIDINE (DEMEROL) INJ 50 MG/ML IVP ONE (11:45)
[2021-10-05] MEDS ORDERED: HYDROmorphone 2 MG/ML VIAL (DILAUDID) IV ONE (11:45)
[2021-10-05] MEDS ORDERED: ONDANSETRON 4 MG/2 ML (SDV) Z0FRAN IVP PRN (11:45)
[2021-10-05] MEDS ORDERED: morphine INJ 10 MG/ML 1ML (SYR OR VIAL) IVP ONE (11:45)
--- NOTE | 2021-10-05 11:45 | Anesthesia-General Post-Op ---
General Patient Condition Mental Status/LOC: Same as Preop Cardiovascular: Satisfactory Nausea/Vomiting: Absent Respiratory: Satisfactory Pain: Controlled Complications: Absent Post Op Complications Complications None Follow Up Care/Instructions Patient Instructions None needed. Anesthesia/Patient Condition Patient Condition Patient is doing well, no complaints, stable vital signs, no apparent adverse anesthesia problems. No complications reported per nursing. LIAN HILLMAN CRNA Oct 05, 2021 11:45
[2021-10-05] MEDS ORDERED: LIDO20SO23 MM ×2 (13:18)
== END 2021-10-05 14:10 ==
LOC: SDC 08:09
PROVIDERS: ATTEND Otolaryngology Otolaryngology/Facial Plastic Surgery
DX: R93.89 Abnormal findings on diagnostic imaging of other specified body structures (principal); Z85.818 Personal history of malignant neoplasm of other sites of lip, oral cavity, and pharynx
CPT/HCPCS: 36415; 80048; 85025; 87081; 93005